=== PATIENT | female | born 1975 | race African-American/Black ===

== ENCOUNTER 2024-06-08 10:36 | Inpatient (IN) | payer OTHER, SELFPAY ==
--- NOTE | ~2024-06-08 | CT_ITS ---
EXAMINATION: CT ABDOMEN AND PELVIS WITHOUT CONTRAST CLINICAL INFORMATION: Abdominal pain, question pancreatitis COMPARISON: None available. TECHNIQUE: Multidetector volumetric imaging was performed from the superior aspect of the liver through the pubic symphysis. Sagittal and coronal reformatted images were obtained on the technologist's workstation. This CT examination was performed using dose optimization techniques as appropriate, variously including the following: *Automated exposure control *Adjustment of mA and/or kV according to patient size (this includes techniques or standardized protocols for targeted exams where dose is matched to indication/reason for exam; i.e. extremities or head) *Use of iterative reconstruction technique DLP: 394 mGy-cm FINDINGS: TELEVISION INSTALLER: Unremarkable LUNG BASES: The visualized lung bases are unremarkable. LIVER, GALLBLADDER, AND BILIARY TREE: Enlarged fatty liver focal fatty sparing about the gallbladder fossa. On noncontrast study, no focal hepatic lesion or biliary ductal dilatation is present. The gallbladder is unremarkable with no evidence of radiopaque gallstones, gallbladder wall thickening, or obvious pericholecystic inflammatory changes. PANCREAS: Pancreas is normal in size. Mild left upper quadrant mesenteric stranding does not appear to be immediately associated with the pancreas SPLEEN: Unremarkable. ADRENAL GLANDS: Unremarkable. KIDNEYS AND URETERS: The kidneys are normal in size, shape, and attenuation. No hydronephrosis or hydroureter. Couple nonobstructing left mid pole 2 to 3 mm calculi.. No perinephric stranding. 3 cm left upper pole renal cyst. BLADDER: Unremarkable. GASTROINTESTINAL TRACT: Moderately distended stomach. Nonobstructive bowel pattern. Appendix not seen. Colon is decompressed. ABDOMINAL WALL: No significant hernia is appreciated. LYMPH NODES: Normal. VASCULAR: Atherosclerotic calcification of nonaneurysmal aorta. PELVIC VISCERA: Study limited without IV or oral contrast. Complex left adnexal 3.4 cm structure with calcifications. Uterus not identified. OSSEOUS STRUCTURES: Unremarkable. CT/CT abdomen pelvis wo IV con IMPRESSION: 1. Mild left upper quadrant mesenteric stranding, not immediately associated with the pancreas. Correlate with pancreatic enzymes. 2. Enlarged fatty liver. 3. Nonobstructing left renal calculi. 4. 3.4 cm complex left adnexal structure with calcifications. Consider pelvic ultrasound. Fleischner guidelines were followed. Electronically signed by: Raisa Goldman MD 06/08/2024 01:37 PM EDT RP
[2024-06-08 10:53] VITALS: BP 125/108; PULSE 88; RESP 14; TEMP 36.6; O2SAT 97; BMI 25.2
--- NOTE | 2024-06-08 11:06 | PC.NURSE ---
patient sitting on floor, patient asked to get back in bed. patient now sitting in bed
[2024-06-08 11:16] VITALS: BP 149/95; PULSE 90; RESP 20; TEMP 36.6; O2SAT 100
--- NOTE | 2024-06-08 11:30 | ED_ITS ---
HPI - Abdominal Pain General Chief Complaint: Abdominal Pain Stated Complaint: ABD PAIN,H/O DIVERTICULITIS,FENTANYL GIVEN PER EMS Time Seen by Provider: 06/08/24 11:25 Source: patient Mode of arrival: ambulatory Limitations: no limitations History of Present Illness HPI narrative: This is a 49 years old patient presented to the emergency department with a chief complaint of upper abdominal pain she reports history of pancreatitis no radiation of the pain nausea no vomiting she does drink alcohol MD elicited complaint: abdominal pain Pertinent past history: other (Pancreatitis) Onset (ago): day(s) (1) Pain Consistency: constant Location: diffuse Severity: moderate Quality: cramping Radiation: none Migration to: no migration Exacerbating factors: nothing Related Data Home Medications ?Medication ?Instructions ?Recorded ?Confirmed buprenorphine 8 mg-naloxone 2 mg 2 film sublingual DAILY 06/08/24 06/08/24 sublingual film (Suboxone) buspirone 7.5 mg tablet 7.5 mg PO BID 06/08/24 06/08/24 qtcbrtaooa-[id number]-[id number] 1 tab PO DAILY PRN Migraine 06/08/24 06/08/24 50 mg-325 mg-40 mg tablet Headache fluoxetine 40 mg capsule 40 mg PO DAILY 06/08/24 06/08/24 gabapentin 400 mg capsule 400 mg PO TID 06/08/24 06/08/24 hydroxyzine pamoate 25 mg capsule 25 - 50 mg PO TID PRN Anxiety 06/08/24 06/08/24 prazosin 1 mg capsule 3 mg PO DAILY 06/08/24 06/08/24 zolpidem 5 mg tablet 5 mg PO BEDTIME 06/08/24 06/08/24 Allergies Allergy/AdvReac Type Severity Reaction Status Date / Time ibuprofen [From Motrin] Allergy Rash Verified 06/08/24 10:55 Iodinated Contrast Media Allergy Anaphylaxis Verified 06/08/24 10:55 [Contrast Dye] Review of Systems Constitutional: Reports no additional constitutional complaints Reports system reviewed and no additional complaints, except as documented Cardiovascular: Reports no additional cardiovascular complaints Respiratory: Reports no additional respiratory complaints Gastrointestinal: Reports no additional gastrointestinal complaints [facility] Past Medical History Attestation statement: The following information was validated with the patient. [facility] Narrative: pancreatitis/alcohol abuse Social History Social History Household Members: Family Alcohol intake: current Alcohol intake frequency: 3 or more drinks per day Alcohol type: hard liquor Patient Tobacco Use Status: Former Tobacco user Second Hand Smoke Exposure: No service: No Physical Exam ED Vital Signs: Vital Signs - 24 hr 06/08/24 16:14 Temperature 98.4 F Pulse Rate 94 Respiratory Rate 16 Blood Pressure 167/84 H Pulse Oximetry 96 Oxygen Delivery Method Room Air BMI result Body Mass Index 25.2 Awake alert in not acute distress Const General: cooperative Nutritional Appearance: well nourished Orientation/consciousness: patient oriented x3 HENMT Head: Yes normal to inspection General nose exam: Normal external nose present Face and sinus: Yes normal facial exam Mouth: Normal oral and palatal mucosa present Neck Neck: Yes normal visual inspection Chest Chest palpation & inspection: normal inspection of the chest Resp Effort & Inspection: normal respiratory effort Auscultation: clear to auscultation bilaterally Cardio Jugular venous distension: no JVD Palpation: normal PMI Rate: regular rate Rhythm: regular rhythm GI Inspection: Yes normal to inspection Palpation (GI): Soft to palpation Auscultation: normal bowel sounds General: Yes no CVA tenderness Back/Spine/Pelvis Back: no CVA tenderness Neuro General: patient oriented x3 Cranial nerves: Yes CN's II-XII intact bilaterally Procedures Procedure Narrative Procedure Narrative: need of IV access multiple nurse failed even with US Easy IJ: under us cannulated rt IJ with 18 angel catheter good blood return good flush Course Reevaluation(s) Reevaluation #1: On re-examination patient sleeping in not acute distress Time: 15:18 Medical Decision Making Medical Decision Making [facility] Narrative: Patient presented with abdominal pain will obtain labs imaging Differential Diagnosis Differential Diagnoses: The differential diagnosis associated with the presentation includes Acute pancreatitis/peptic ulcer disease/cholecystitis Lab Data 06/08/24 18:45 06/08/24 18:45 Labs: Lab Results 06/08/24 06/08/24 Range/Units 11:44 16:08 WBC 10.6 (4.8-10.8) X10*3/uL RBC 4.69 (4.20-5.50) X10*6/uL Hgb 11.8 L (12.0-16.0) g/dl Hct 36.4 L (37.0-47.0) % MCV 77.6 L (80.0-98.0) fL MCH 25.2 L (27.0-33.0) pg MCHC 32.4 (31.0-35.0) g/dl RDW 13.4 (11.0-16.0) % Plt Count 354 (160-400) X10*3/uL MPV 9.1 L (9.4-12.3) fL Immature Gran % (Auto) 0.7 H (0.0-0.4) % Neut % (Auto) 82.7 H (45-73) % Lymph % (Auto) 13.2 L (20-40) % [place] % (Auto) 2.7 (2-11) % Eos % (Auto) 0.4 (0-4) % Baso % (Auto) 0.3 (0-2) % Lymph # (Auto) 1.4 (1.2-4.9) X10*3/uL [place] # (Auto) 0.3 (0.1-1.2) X10*3/uL Eos # (Auto) 0.0 (0.0-0.4) X10*3/uL Baso # (Auto) 0.0 (0.0-0.2) X10*3/uL Abs Immat Gran (auto) 0.07 H (0.00-0.03) X10*3/uL Absolute Neuts (auto) 8.7 H (2.0-8.3) x10*3/uL Absolute Nucleated RBC 0.000 (0.0-0.012) X10*3/uL Nucleated RBC % (auto) 0.0 (0.0-0.2) /100WBC VBG pH 7.42 (7.32-7.43) VBG pCO2 38 mmHg VBG pO2 56 mmHg VBG HCO3 25 (22-26) mmol/L VBG O2 Saturation 81.0 % VBG Base Excess 0.9 mmol/L Sodium 138 (135-145) mmol/L Potassium 3.2 L (3.3-5.1) mmol/L Chloride 103 (96-108) mmol/L Carbon Dioxide 15 L (22-29) mmol/L Anion Gap 23 H (12-20) BUN 10 (9-16) mg/dL Creatinine 0.80 (0.5-1.4) mg/dL Estim Creat Clear Calc 74.0 Estimated GFR > 60 Random Glucose 167 H (60-115) mg/dL Calcium 10.8 H (8.4-10.2) mg/dL Total Bilirubin 0.5 (0.0-1.0) mg/dL AST 67 H (5-31) U/L ALT 30 (0-31) U/L Alkaline Phosphatase 129 H (39-117) U/L Total Protein 8.8 H (6.5-8.0) g/dL Albumin 4.6 (3.5-5.0) g/dL Lipase 8 (8-78) U/L Beta HCG, Quant 8 mIU/mL Urine Color Yellow Urine Appearance Clear Urine pH 6.5 (5.0-9.0) Ur Specific [place] 1.020 (1.005-1.025) Urine Protein Negative (Neg-Trace) mg/dL Urine Glucose (UA) Negative (Negative) mg/dL Urine Ketones 80 (Negative) mg/dL Urine Blood Negative (Negative) Urine Nitrite Negative (Negative) Ur Leukocyte Esterase Negative (Negative) Medications Administered Generic Name Dose Route Start Last Admin Trade Name Freq PRN Reason Stop Dose Admin Acetaminophen/Butalbital/Caffeine 1 tab 06/09/24 15:17 06/09/24 15:20 Butalb/Acetamin/Caff 50/325/40 Tablet PO 1 tab Q4H PRN Administration Headache Buprenorphine/Naloxone 2 film 06/09/24 09:00 06/09/24 08:27 Buprenorphine/Naloxone 8/2 Mg Film SUBLINGUAL 2 film DAILY CLAU Administration Buspirone HCl 7.5 mg 06/08/24 22:50 06/09/24 08:28 Buspirone Hcl 5 Mg Tablet PO 7.5 mg BID CLAU Administration Enoxaparin Sodium 40 mg 06/08/24 17:00 06/09/24 15:16 Enoxaparin Sodium 40 Mg/0.4 Ml Syringe SUBCUT 40 mg Q24H CLAU Administration Fluoxetine HCl 40 mg 06/09/24 09:00 06/09/24 08:28 Fluoxetine Hcl 20 Mg Capsule PO 40 mg DAILY CLAU Administration Gabapentin 400 mg 06/08/24 22:50 06/09/24 15:16 Gabapentin 400 Mg Capsule PO 400 mg TID CLAU Administration Lactated Ringer's 1,000 mls @ 150 mls/hr 06/08/24 16:30 06/09/24 15:16 Lr IVCONT 150 mls/hr .Q6H40M CLAU Administration Melatonin 6 mg 06/08/24 16:23 06/08/24 23:05 Melatonin 3 Mg Tablet PO 6 mg BEDTIME PRN Administration Insomnia Oxycodone HCl 10 mg 06/08/24 16:25 06/09/24 12:06 Oxycodone Hcl Immed Release 5 Mg Tablet PO 10 mg Q4H PRN Administration Pain, Moderate(Pain Scale 4-6) Phenobarbital 45 mg 06/09/24 09:00 06/09/24 08:28 Phenobarbital 15 Mg Tablet PO 06/10/24 21:01 45 mg BID CLAU Administration Prazosin HCl 3 mg 06/09/24 09:00 06/09/24 08:27 Prazosin Hcl 1 Mg Capsule PO 3 mg DAILY CLAU Administration Protocol Sodium Chloride 3 ml 06/09/24 00:00 06/09/24 15:25 0.9 % Sodium Chloride Flush 3 Ml Syringe IVFLUSH Not Given QSHIFT CLAU Discontinued Medications Generic Name Dose Route Start Last Admin Trade Name Freq PRN Reason Stop Dose Admin Sodium Chloride 1,000 mls @ 999 mls/hr 06/08/24 15:30 06/08/24 17:10 Ns IVCONT 06/08/24 16:30 Infused .Q1H1M CLAU Infusion Lorazepam 0.5 mg 06/08/24 11:29 06/08/24 12:23 Lorazepam 2 Mg/Ml Vial IVPUSH 06/08/24 11:30 0.5 mg ONCE ONE Administration Morphine Sulfate 4 mg 06/08/24 11:28 06/08/24 12:23 Morphine Sulfate 4 Mg/Ml Cartridge IVPUSH 06/08/24 11:29 4 mg ONCE ONE Administration Protocol Morphine Sulfate 4 mg 06/08/24 14:11 06/08/24 14:21 Morphine Sulfate 4 Mg/Ml Cartridge IVPUSH 06/08/24 14:12 4 mg ONCE ONE Administration Protocol Morphine Sulfate 4 mg 06/08/24 16:25 06/09/24 10:36 Morphine Sulfate 4 Mg/Ml Cartridge IVPUSH 4 mg Q4H PRN Administration Pain, Severe (Pain Scale 7-10) Protocol Ondansetron HCl 4 mg 06/08/24 11:28 06/08/24 12:23 Ondansetron Hcl 4 Mg/2 Ml Vial IVPUSH 06/08/24 11:29 4 mg ONCE ONE Administration Phenobarbital Sodium 120 mg 06/08/24 18:30 06/08/24 18:33 Phenobarbital Sodium 130 Mg/Ml Im Once IM 06/08/24 18:31 120 mg ONCE ONE Administration Phenobarbital Sodium 90 mg 06/08/24 22:00 06/09/24 00:22 Phenobarbital Sodium 130 Mg/Ml Vial Im Q3hx2 IM 06/09/24 01:01 90 mg Q3H CLAU Administration Potassium Chloride 20 meq 06/08/24 15:33 06/08/24 16:11 Potassium Chloride Er 20 Meq Tab.Er.Prt PO 06/08/24 15:34 20 meq ONCE ONE Administration Discharge Plan Discharge Clinical Impression: Acute pancreatitis, Metabolic acidosis, Metabolic acidosis, increased anion gap Patient Disposition: Admitted As Inpatient Interventions: Admission Worksheet (ED) Last Done: 06/08/24 19:57 Discharge Date/Time: 06/08/24 20:35
[2024-06-08 11:51] LABS: MANUAL DIFF FLAG NO
[2024-06-08 11:52] LABS: Appearance Urine Clear; Color Urine Yellow; Glucose Urine UA Negative (Negative); Leukocyte Esterase Urine Negative (Negative); Nitrite Urine Negative (Negative); PH 6.5 (5.0-9.0); Urine Blood Negative (Negative); Urine Ketones 80 mg/dL (Negative); Urine Protein Negative (Neg-Trace)
[2024-06-08 11:56] LABS: Basophils Percent Auto 0.3 % (0-2); Eosinophils Percent Auto 0.4 % (0-4); Hematocrit 36.4 % (37.0-47.0); Hemoglobin 11.8 g/dl (12.0-16.0); Imm Gran Abs Auto 0.07 X10*3/uL (0.00-0.03); Imm Gran Pct Auto 0.7 % (0.0-0.4); Lymphocytes Absolute Auto 1.4 X10*3/uL (1.2-4.9); Lymphocytes Percent Auto 13.2 % (20-40); Mean Corpuscular HGB Conc 32.4 g/dl (31.0-35.0); Mean Corpuscular Hemoglobin 25.2 pg (27.0-33.0); Mean Corpuscular Volume 77.6 fL (80.0-98.0); Mean Platelet Volume 9.1 fL (9.4-12.3); Monocytes Absolute Auto 0.3 X10*3/uL (0.1-1.2); Monocytes Percent Auto 2.7 % (2-11); Neutrophils Absolute Auto 8.7 x10*3/uL (2.0-8.3); Neutrophils Percent Auto 82.7 % (45-73); Platelet Count 354 X10*3/uL (160-400); Red Blood Count 4.69 X10*6/uL (4.20-5.50); Red Cell Distribution Width 13.4 % (11.0-16.0); White Blood Count 10.6 X10*3/uL (4.8-10.8)
[2024-06-08 12:08] LABS: Alanine Aminotransferase 30 U/L (0-31); Albumin Level 4.6 g/dL (3.5-5.0); Alkaline Phosphatase 129 U/L (39-117); Anion Gap 23 (12-20); Aspartate Amino Transferase 67 U/L (5-31); Bilirubin Total 0.5 mg/dL (0.0-1.0); Blood Urea Nitrogen 10 mg/dL (9-16); Calcium 10.8 mg/dL (8.4-10.2); Carbon Dioxide 15 mmol/L (22-29); Chloride 103 mmol/L (96-108); Estimated Glomerular Filt Rate > 60; Glucose Random 167 mg/dL (60-115); Lipase 8 U/L (8-78); Potassium 3.2 mmol/L (3.3-5.1); Sodium 138 mmol/L (135-145); Total Protein 8.8 g/dL (6.5-8.0)
[2024-06-08 12:13] LABS: HCG Quantitative 8 mIU/mL
[2024-06-08] MEDS: ondansetron HCL 4 MG/2 ML VIAL IVPUSH (12:23)
[2024-06-08] MEDS: Morphine Sulfate 4 MG/ML CARTRIDGE IVPUSH ×4 (12:23→22:31)
[2024-06-08] MEDS: LORazepam 2 MG/ML VIAL 0.5 MG IVPUSH (12:23)
[2024-06-08 13:55] VITALS: BP 146/92; PULSE 98; RESP 14; TEMP 37.1; O2SAT 97
[2024-06-08] MEDS: 0.9 % Sodium Chloride 1,000 ML 999 ML IVCONT (15:37)
[2024-06-08] MEDS: Potassium Chloride ER 20 MEQ TAB.ER.PRT PO (16:11)
[2024-06-08 16:12] LABS: VBG Base Excess 0.9 mmol/L; VBG HCO3 25 mmol/L (22-26); VBG pCO2 38 mmHg; VBG pH 7.42 (7.32-7.43); VBG pO2 56 mmHg
[2024-06-08 16:13] LABS: Venous Blood Gas Refer to POC result
[2024-06-08 16:14] VITALS: BP 167/84; PULSE 94; RESP 16; TEMP 36.9; O2SAT 96
--- NOTE | 2024-06-08 16:27 | PM.IMHP ---
History of Present Illness Date of Service: 06/08/24 Chief Complaint: abd pain 49-year-old female with a history of substance abuse on Suboxone/anxiety with a history of pancreatitis presents with diffuse upper abdominal pain worsening over the last 24 hours. States she had an alcoholic beverage last night and shortly thereafter her pain began. Her last acute attack was 3 or 4 months ago. She denies daily alcohol use Review of Systems Review of Systems: Denies chest pain Denies shortness of breath Denies nausea vomiting diarrhea -admits to abdominal pain diffuse across upper abdomen Denies fever chills PMFSH Social History Alcohol intake: current Alcohol intake frequency: 3 or more drinks per day Alcohol type: hard liquor Advance Directives: No Advance Directives Information Provided: Yes Do you have a plan to hurt others: No Plan Meds Allergies Allergy/AdvReac Type Severity Reaction Status Date / Time ibuprofen [From Motrin] Allergy Rash Verified 06/08/24 10:55 Iodinated Contrast Media Allergy Anaphylaxis Verified 06/08/24 10:55 [Contrast Dye] Active Medications: Current Medications Acetaminophen (Acetaminophen 325 Mg Tablet) 650 mg PO Q6H PRN PRN Reason: Pain, Mild (Pain Scale 1-3), fever or headache Calcium Carbonate (Calcium Carbonate 750 Mg Tab.Chew) 750 mg PO Q4H PRN PRN Reason: Heartburn Enoxaparin Sodium (Enoxaparin Sodium 40 Mg/0.4 Ml Syringe) 40 mg SUBCUT Q24H REPLACED BY [facility] Sodium Chloride (Ns) 1,000 mls @ 999 mls/hr IVCONT .Q1H1M REPLACED BY [facility] Stop: 06/08/24 16:30 Last Admin: 06/08/24 15:37 Dose: 999 mls/hr Magnesium Hydroxide (Milk Of Magnesia 30 Ml Oral.Susp) 30 ml PO DAILY PRN PRN Reason: Constipation Melatonin (Melatonin 3 Mg Tablet) 6 mg PO BEDTIME PRN PRN Reason: Insomnia Sodium Chloride (0.9 % Sodium Chloride Flush 3 Ml Syringe) 3 ml IVFLUSH QSHIFT REPLACED BY [facility] Home Medications ?Medication ?Instructions ?Recorded ?Confirmed ?Last Taken ?Type buprenorphine 8 mg-naloxone 2 mg 2 film sublingual DAILY 06/08/24 Unknown History sublingual film (Suboxone) buspirone 7.5 mg tablet 7.5 mg PO BID 06/08/24 Unknown History fluoxetine 40 mg capsule 40 mg PO DAILY 06/08/24 Unknown History gabapentin 400 mg capsule 400 mg PO TID 06/08/24 Unknown History hydroxyzine pamoate 25 mg capsule 25 - 50 mg PO TID PRN Anxiety 06/08/24 Unknown History prazosin 1 mg capsule 3 mg PO DAILY 06/08/24 Unknown History zolpidem 5 mg tablet 5 mg PO BEDTIME 06/08/24 Unknown History Physical Exam Vital Signs and Narrative: Vital Signs: Last Vital Signs Temp 98.4 F 06/08/24 16:14 Pulse 94 06/08/24 16:14 Resp 16 06/08/24 16:14 BP 167/84 H 06/08/24 16:14 Pulse Ox 96 06/08/24 16:14 O2 Del Method Room Air 06/08/24 16:14 BMI result Body Mass Index 25.2 Const: Other: Awake alert uncomfortable appearing acute distress Resp: Other: Clear to auscultation bilaterally no rales rhonchi or wheezes Cardio: Other: No S4; positive S1-S2; no S3 murmurs rubs or gallops GI: Other: Soft nontender nondistended normoactive bowel sounds Extrem: Other: No edema bilaterally Results Labs 06/08/24 11:44 06/08/24 11:44 Labs: Laboratory Results - last 24 hr 06/08/24 06/08/24 11:44 16:08 MCV 77.6 L MCH 25.2 L MCHC 32.4 RDW 13.4 Plt Count 354 MPV 9.1 L Immature Gran % (Auto) 0.7 H Neut % (Auto) 82.7 H Lymph % (Auto) 13.2 L [place] % (Auto) 2.7 Eos % (Auto) 0.4 Baso % (Auto) 0.3 Lymph # (Auto) 1.4 [place] # (Auto) 0.3 Eos # (Auto) 0.0 Baso # (Auto) 0.0 Abs Immat Gran (auto) 0.07 H Absolute Neuts (auto) 8.7 H Absolute Nucleated RBC 0.000 Nucleated RBC % (auto) 0.0 VBG pH 7.42 VBG pCO2 38 VBG pO2 56 VBG HCO3 25 VBG O2 Saturation 81.0 VBG Base Excess 0.9 Anion Gap 23 H Estim Creat Clear Calc 74.0 Estimated GFR > 60 Random Glucose 167 H Calcium 10.8 H Total Bilirubin 0.5 AST 67 H ALT 30 Alkaline Phosphatase 129 H Total Protein 8.8 H Albumin 4.6 Lipase 8 Beta HCG, Quant 8 Urine Color Yellow Urine Appearance Clear Urine pH 6.5 Ur Specific [place] 1.020 Urine Protein Negative Urine Glucose (UA) Negative Urine Ketones 80 Urine Blood Negative Urine Nitrite Negative Ur Leukocyte Esterase Negative Imaging Radiologist's Impressions: Impressions Abdomen/Pelvis CT 06/08/24 11:29 IMPRESSION: 1. Mild left upper quadrant mesenteric stranding, not immediately associated with the pancreas. Correlate with pancreatic enzymes. 2. Enlarged fatty liver. 3. Nonobstructing left renal calculi. 4. 3.4 cm complex left adnexal structure with calcifications. Consider pelvic ultrasound. Fleischner guidelines were followed. Electronically signed by: Raisa Goldman MD 06/08/2024 01:37 PM EDT RP Assessment and Plan (1) Acute pancreatitis: Qualifiers: Pancreatitis type: alcohol induced Acute pancreatitis complication: unspecified Qualified Code(s): K85.20 - Alcohol induced acute pancreatitis without necrosis or infection Status: Acute (2) Substance abuse: Status: Acute Plan 49-year-old female with a history of substance abuse on Suboxone in the history of pancreatitis presents with diffuse upper abdominal pain worsening over the last 24 hours that began after an alcoholic beverage. She states last episode of pancreatitis was at least to 3 months ago 1. Acute pancreatitis -admit to med surge -lactated Ringer's at 150 an hour -NPO save ice chips -morphine/oxycodone for pain 2. Anxiety -stable and well compensated -we will continue outpatient therapies 3. Substance abuse disorder -continue Suboxone Lovenox Full Code Patient will require at least 2 midnights going forward to treat acute pancreatitis with NPO status and IV fluids as well as IV pain medication. This can not be achieved a lesser acute setting Quality Stroke Does the patient have a stroke diagnosis?: No VTE Prior VTE?: No VTE Risk Level:: Medical - moderate - high VTE Device Contraindication: Treatment Not Indicated VTE Drug Contraindication: N/A - Med Ordered
[2024-06-08] MEDS: oxyCODONE HCl Immed Release 5 MG TABLET 10 MG PO (17:21)
[2024-06-08] MEDS: Lactated Ringers 1,000 ML 150 ML IVCONT (17:22)
--- NOTE | 2024-06-08 17:38 | PC.NURSE ---
patient resting quietly in bed, respirations equal and unlabored. patient medicated per MAR for pain. patient is alert and oriented x4. patient is ambulatory to the bathroom on own, able to make needs known. patient has EJ R #18 placed by ED doc. patient has LR running at 150ml/hr. patient CIWA 11, inpatient provider notified.
--- NOTE | 2024-06-08 18:03 | PHA.MEDREC ---
Pharmacy Consult ? Medication Reconciliation Pharmacy has completed the medication reconciliation.
[2024-06-08 18:28] VITALS: BP 164/83; PULSE 98; RESP 20; TEMP 37; O2SAT 99
[2024-06-08] MEDS: PHENobarbitaL sodium 130 MG/ML IM ONCE 120 MG IM (18:33)
[2024-06-08 18:52] LABS: MANUAL DIFF FLAG NO
[2024-06-08 19:09] LABS: Alanine Aminotransferase 27 U/L (0-31); Albumin Level 4.3 g/dL (3.5-5.0); Alkaline Phosphatase 119 U/L (39-117); Anion Gap 18 (12-20); Aspartate Amino Transferase 48 U/L (5-31); Bilirubin Total 0.4 mg/dL (0.0-1.0); Blood Urea Nitrogen 6 mg/dL (9-16); Carbon Dioxide 17 mmol/L (22-29); Chloride 106 mmol/L (96-108); Estimated Glomerular Filt Rate > 60; Glucose Fasting 152 mg/dL (60-99); Lipase 7 U/L (8-78); Potassium 3.7 mmol/L (3.3-5.1); Sodium 137 mmol/L (135-145); Total Protein 8.3 g/dL (6.5-8.0)
[2024-06-08 19:10] LABS: Basophils Percent Auto 0.1 % (0-2); Eosinophils Percent Auto 0.3 % (0-4); Hematocrit 33.3 % (37.0-47.0); Hemoglobin 11.5 g/dl (12.0-16.0); Imm Gran Abs Auto 0.05 X10*3/uL (0.00-0.03); Imm Gran Pct Auto 0.5 % (0.0-0.4); Lymphocytes Absolute Auto 1.7 X10*3/uL (1.2-4.9); Lymphocytes Percent Auto 18.3 % (20-40); Mean Corpuscular HGB Conc 34.5 g/dl (31.0-35.0); Mean Corpuscular Hemoglobin 25.7 pg (27.0-33.0); Mean Corpuscular Volume 74.3 fL (80.0-98.0); Mean Platelet Volume 9.6 fL (9.4-12.3); Monocytes Absolute Auto 0.3 X10*3/uL (0.1-1.2); Monocytes Percent Auto 3.1 % (2-11); Neutrophils Absolute Auto 7.1 x10*3/uL (2.0-8.3); Neutrophils Percent Auto 77.7 % (45-73); Platelet Count 340 X10*3/uL (160-400); Red Blood Count 4.48 X10*6/uL (4.20-5.50); Red Cell Distribution Width 13.2 % (11.0-16.0); White Blood Count 9.1 X10*3/uL (4.8-10.8)
[2024-06-08 21:56] VITALS: BP 119/69; PULSE 86; RESP 20; TEMP 37.2; O2SAT 98
[2024-06-08] MEDS: PHENobarbitaL sodium 130 MG/ML VIAL IM Q3Hx2 90 MG IM (22:24)
[2024-06-08] MEDS: 0.9 % Sodium Chloride Flush 3 ML SYRINGE IVFLUSH (23:05)
[2024-06-08] MEDS: Melatonin 3 MG TABLET 6 MG PO (23:05)
[2024-06-08] MEDS: busPIRone HCl 5 MG TABLET 7.5 MG PO (23:05)
[2024-06-08] MEDS: Gabapentin 400 MG CAPSULE PO (23:05)
[2024-06-09] VITALS: BP 117/60; PULSE 82; RESP 20; TEMP 36.6; O2SAT 98
[2024-06-09] MEDS: PHENobarbitaL sodium 130 MG/ML VIAL IM Q3Hx2 90 MG IM (00:22)
[2024-06-09] MEDS: oxyCODONE HCl Immed Release 5 MG TABLET 10 MG PO ×5 (00:22→20:57)
[2024-06-09] MEDS: Lactated Ringers 1,000 ML 150 ML IVCONT ×4 (00:28→21:06)
[2024-06-09] MEDS: Morphine Sulfate 4 MG/ML CARTRIDGE IVPUSH ×2 (02:52→10:36)
[2024-06-09 05:08] VITALS: BP 112/62; PULSE 83; RESP 20; TEMP 36.3; O2SAT 98
[2024-06-09 07:18] VITALS: BP 113/71; PULSE 85; RESP 18; TEMP 36.6; O2SAT 95
[2024-06-09] MEDS: Buprenorphine/Naloxone 8/2 mg FILM 2 FILM SUBLINGUAL (08:27)
[2024-06-09] MEDS: Prazosin HCL 1 MG CAPSULE 3 MG PO (08:27)
[2024-06-09] MEDS: Gabapentin 400 MG CAPSULE PO ×3 (08:28→20:56)
[2024-06-09] MEDS: FLUoxetine HCl 20 MG CAPSULE 40 MG PO (08:28)
[2024-06-09] MEDS: busPIRone HCl 5 MG TABLET 7.5 MG PO ×2 (08:28→20:56)
[2024-06-09] MEDS: PHENobarbitaL 15 MG TABLET 45 MG PO ×2 (08:28→20:55)
--- NOTE | 2024-06-09 11:00 | MHC.CM.PN ---
Pt self-care, lives at home with roommates. Pt may need assistance with transportation home. New HCP completed with pt, now on file. Pt uses a cane and a walker. PCP: Mikki BARNHART
[2024-06-09] MEDS: Enoxaparin Sodium 40 MG/0.4 ML SYRINGE SUBCUT (15:16)
--- NOTE | 2024-06-09 15:18 | P.PNIM_ITS ---
Subjective Subjective Date of Service: 06/09/24 Interval History: Pain improved. Advance diet to full liquids. Review of Systems Denies chest pain Denies shortness of breath Denies nausea vomiting diarrhea -admits to abdominal pain diffuse across upper abdomen Denies fever chills Physical Exam 2 Vital Signs: Vital Signs: Last Vital Signs Temp 97.8 F 06/09/24 07:18 Pulse 85 06/09/24 07:18 Resp 18 06/09/24 07:18 BP 113/71 06/09/24 07:18 Pulse Ox 95 06/09/24 07:18 O2 Del Method Room Air 06/09/24 07:18 BMI result Body Mass Index 25.2 Const: Other: Awake alert uncomfortable appearing acute distress Resp: Other: Clear to auscultation bilaterally no rales rhonchi or wheezes Cardio: Other: No S4; positive S1-S2; no S3 murmurs rubs or gallops GI: Other: Soft nontender nondistended normoactive bowel sounds Extrem: Other: No edema bilaterally Objective Data Active Medications Acetaminophen (Acetaminophen 325 Mg Tablet) 650 mg PO Q6H PRN PRN Reason: Pain, Mild (Pain Scale 1-3), fever or headache Buprenorphine/Naloxone (Buprenorphine/Naloxone 8/2 Mg Film) 2 film SUBLINGUAL DAILY [facility] Last Admin: 06/09/24 08:27 Dose: 2 film Documented By: MEGHNA Buspirone HCl (Buspirone Hcl 5 Mg Tablet) 7.5 mg PO BID [facility] Last Admin: 06/09/24 08:28 Dose: 7.5 mg Documented By: MEGHNA Calcium Carbonate (Calcium Carbonate 750 Mg Tab.Chew) 750 mg PO Q4H PRN PRN Reason: Heartburn Enoxaparin Sodium (Enoxaparin Sodium 40 Mg/0.4 Ml Syringe) 40 mg SUBCUT Q24H [facility] Last Admin: 06/08/24 17:30 Dose: Not Given Documented By: JORGE ALBERTO Non-Admin Reason: Med Not Available Fluoxetine HCl (Fluoxetine Hcl 20 Mg Capsule) 40 mg PO DAILY [facility] Last Admin: 06/09/24 08:28 Dose: 40 mg Documented By: MEGHNA Gabapentin (Gabapentin 400 Mg Capsule) 400 mg PO TID [facility] Last Admin: 06/09/24 08:28 Dose: 400 mg Documented By: MEGHNA Lactated Ringer's (Lr) 1,000 mls @ 150 mls/hr IVCONT .Q6H40M [facility] Last Admin: 06/09/24 08:26 Dose: 150 mls/hr Documented By: MEGHNA Magnesium Hydroxide (Milk Of Magnesia 30 Ml Oral.Susp) 30 ml PO DAILY PRN PRN Reason: Constipation Melatonin (Melatonin 3 Mg Tablet) 6 mg PO BEDTIME PRN PRN Reason: Insomnia Last Admin: 06/08/24 23:05 Dose: 6 mg Documented By: YESY Morphine Sulfate (Morphine Sulfate 4 Mg/Ml Cartridge) 4 mg IVPUSH Q4H PRN; Protocol PRN Reason: Pain, Severe (Pain Scale 7-10) Last Admin: 06/09/24 10:36 Dose: 4 mg Documented By: BAILEE Oxycodone HCl (Oxycodone Hcl Immed Release 5 Mg Tablet) 10 mg PO Q4H PRN PRN Reason: Pain, Moderate(Pain Scale 4-6) Last Admin: 06/09/24 12:06 Dose: 10 mg Documented By: MEGHNA Pharmacy Consult (Consult Rx Etoh Phenob Im/Po) 1 each MISCELLANE ONCE PRN; Protocol PRN Reason: Consult order Phenobarbital (Phenobarbital 15 Mg Tablet) 45 mg PO BID [facility] Stop: 06/10/24 21:01 Last Admin: 06/09/24 08:28 Dose: 45 mg Documented By: MEGHNA Phenobarbital (Phenobarbital 30 Mg Tablet) 30 mg PO BID [facility] Stop: 06/12/24 21:01 Phenobarbital (Phenobarbital 15 Mg Tablet) 15 mg PO DAILY [facility] Stop: 06/14/24 09:01 Prazosin HCl (Prazosin Hcl 1 Mg Capsule) 3 mg PO DAILY [facility]; Protocol Last Admin: 06/09/24 08:27 Dose: 3 mg Documented By: MEGHNA Sodium Chloride (0.9 % Sodium Chloride Flush 3 Ml Syringe) 3 ml IVFLUSH QSHIFT [facility] Last Admin: 06/09/24 08:30 Dose: Not Given Documented By: MEGHNA Non-Admin Reason: IV Running Labs 06/08/24 18:45 06/08/24 18:45 Labs: Laboratory Results - last 24 hr 06/08/24 06/08/24 16:08 18:45 MCV 74.3 L MCH 25.7 L MCHC 34.5 RDW 13.2 Plt Count 340 MPV 9.6 Immature Gran % (Auto) 0.5 H Neut % (Auto) 77.7 H Lymph % (Auto) 18.3 L [place] % (Auto) 3.1 Eos % (Auto) 0.3 Baso % (Auto) 0.1 Lymph # (Auto) 1.7 [place] # (Auto) 0.3 Eos # (Auto) 0.0 Baso # (Auto) 0.0 Abs Immat Gran (auto) 0.05 H Absolute Neuts (auto) 7.1 Absolute Nucleated RBC 0.000 Nucleated RBC % (auto) 0.0 VBG pH 7.42 VBG pCO2 38 VBG pO2 56 VBG HCO3 25 VBG O2 Saturation 81.0 VBG Base Excess 0.9 Anion Gap 18 Estim Creat Clear Calc 81.0 Estimated GFR > 60 Fasting Glucose 152 H Calcium 10.0 D Total Bilirubin 0.4 AST 48 H ALT 27 Alkaline Phosphatase 119 H Total Protein 8.3 H Albumin 4.3 Lipase 7 L Assessment and Plan (1) Acute pancreatitis: Status: Acute (2) Substance abuse: Status: Acute Plan 49-year-old female with a history of substance abuse on Suboxone in the history of pancreatitis presents with diffuse upper abdominal pain worsening over the last 24 hours that began after an alcoholic beverage. She states last episode of pancreatitis was at least to 3 months ago 1. Acute pancreatitis -improving; DC morphine -lactated Ringer's at 150 an hour -advance diet to full liquids if tolerated low-fat tonight -I feel DC in a.m. 2. Anxiety -stable and well compensated -we will continue outpatient therapies 3. Substance abuse disorder -continue Suboxone Lovenox Full Code Requires ongoing hospitalization to treat acute pancreatitis with pain medication and IV fluids. Quality Stroke Does the patient have a stroke diagnosis?: No VTE Prior VTE?: No VTE Risk Level:: Medical - moderate - high VTE Device Contraindication: Treatment Not Indicated VTE Drug Contraindication: N/A - Med Ordered
[2024-06-09] MEDS: Butalb/Acetamin/Caff 50/325/40 TABLET 1 TAB PO ×2 (15:20→21:47)
[2024-06-09 15:31] VITALS: BP 110/62; PULSE 86; RESP 18; TEMP 36.8; O2SAT 98
[2024-06-09 20:00] VITALS: BP 103/58; PULSE 82; RESP 16; TEMP 37.1; O2SAT 97
[2024-06-09] MEDS: Melatonin 3 MG TABLET 6 MG PO (21:03)
--- NOTE | 2024-06-09 22:36 | PC.RT ---
Pt refused NOC CPAP
[2024-06-09 23:59] VITALS: BP 123/75; PULSE 79; RESP 20; TEMP 36.4; O2SAT 98
[2024-06-10] MEDS: oxyCODONE HCl Immed Release 5 MG TABLET 10 MG PO ×3 (01:41→10:15)
[2024-06-10 04:00] VITALS: BP 133/77; PULSE 77; RESP 16; TEMP 36.8; O2SAT 99
[2024-06-10] MEDS: Lactated Ringers 1,000 ML 150 ML IVCONT ×2 (04:23→09:22)
[2024-06-10] MEDS: Calcium Carbonate 750 MG TAB.CHEW PO (06:11)
[2024-06-10 08:00] VITALS: BP 118/73; PULSE 83; RESP 20; TEMP 36.9; O2SAT 98
[2024-06-10] MEDS: PHENobarbitaL 15 MG TABLET 45 MG PO ×2 (09:06→20:58)
[2024-06-10] MEDS: FLUoxetine HCl 20 MG CAPSULE 40 MG PO (09:06)
[2024-06-10] MEDS: Prazosin HCL 1 MG CAPSULE 3 MG PO (09:06)
[2024-06-10] MEDS: 0.9 % Sodium Chloride Flush 3 ML SYRINGE IVFLUSH ×3 (09:07→20:59)
[2024-06-10] MEDS: Gabapentin 400 MG CAPSULE PO ×3 (09:07→20:57)
[2024-06-10] MEDS: busPIRone HCl 5 MG TABLET 7.5 MG PO ×2 (09:07→20:57)
[2024-06-10] MEDS: Buprenorphine/Naloxone 8/2 mg FILM 2 FILM SUBLINGUAL (09:09)
[2024-06-10] MEDS: Acetaminophen 325 MG TABLET 650 MG PO ×2 (09:15→15:30)
--- NOTE | 2024-06-10 11:20 | MHC.RECOVRN ---
AUDIT-C Brief Intervention Pt had positive screen for unhealthy alcohol use on admission, subsequently met with t/w to discuss alcohol use and recovery supports/options. Pt voices concern regarding alcohol use and is aware that drinking at unhealthy levels is known to increase risk of alcohol related health problems. Pt reports drinking 1-2 pints of liquor daily for approximately 15 years. Pt expresses how alcohol use has impacted health, including negative impact on her health. Discussed risk reduction strategies including drinking below the recommended limit. Provided pt with written resources including information on inpatient and outpatient treatment, [facility]ALEN, harm reduction, and recovery coaching. Pt plans to follow up with [facility] for outpatient care. Pt provided with t/w contact information if questions or concerns arise. Denies other questions or concerns at this time.
[2024-06-10] MEDS: ondansetron HCL 4 MG/2 ML VIAL IVPUSH (12:40)
--- NOTE | 2024-06-10 13:45 | P.PNIM_ITS ---
Subjective Subjective Date of Service: 06/10/24 Interval History: Seen and examined this morning Follow-up for alcohol withdrawal, acute pancreatitis Abdominal pain somewhat improved Reporting nausea Review of Systems Review of Systems: Yes all other systems are reviewed and are negative Constitutional Constitutional: Denies chills and Denies fever(s) Cardiovascular Cardiovascular: Denies chest pain and Denies dyspnea Respiratory Respiratory: Denies cough and Denies dyspnea Gastrointestinal Gastrointestinal: Reports abdominal pain, Reports nausea and Denies vomiting Physical Exam 2 Vital Signs: Vital Signs: Last Vital Signs Temp 98.4 F 06/10/24 08:00 Pulse 83 06/10/24 08:00 Resp 20 06/10/24 08:00 BP 118/73 06/10/24 08:00 Pulse Ox 98 06/10/24 08:00 O2 Del Method Room Air 06/10/24 08:00 BMI result Body Mass Index 25.2 Const: General: cooperative, no acute distress, alert and awake Nutritional Appearance: average body habitus Orientation/consciousness: patient oriented x3 Resp: Effort & Inspection: normal respiratory effort, able to speak in complete sentences, no respiratory distress and no use of accessory muscles Cardio: Rate: regular rate GI: Inspection: No distended Palpation (GI): Soft to palpation Neuro: General: patient oriented x3, moves all extremities and CN's II-XI intact bilaterally Extrem: General: Yes no pedal edema Objective Data Active Medications Acetaminophen (Acetaminophen 325 Mg Tablet) 650 mg PO Q6H PRN PRN Reason: Pain, Mild (Pain Scale 1-3), fever or headache Last Admin: 06/10/24 09:15 Dose: 650 mg Documented By: FABRICIO Acetaminophen/Butalbital/Caffeine (Butalb/Acetamin/Caff 50/325/40 Tablet) 1 tab PO Q4H PRN PRN Reason: Headache Last Admin: 06/09/24 21:47 Dose: 1 tab Documented By: DANIEL Buprenorphine/Naloxone (Buprenorphine/Naloxone 8/2 Mg Film) 2 film SUBLINGUAL DAILY [facility] Last Admin: 06/10/24 09:09 Dose: 2 film Documented By: FABRICIO Buspirone HCl (Buspirone Hcl 5 Mg Tablet) 7.5 mg PO BID [facility] Last Admin: 06/10/24 09:07 Dose: 7.5 mg Documented By: FABRICIO Calcium Carbonate (Calcium Carbonate 750 Mg Tab.Chew) 750 mg PO Q4H PRN PRN Reason: Heartburn Last Admin: 06/10/24 06:11 Dose: 750 mg Documented By: DANIEL Enoxaparin Sodium (Enoxaparin Sodium 40 Mg/0.4 Ml Syringe) 40 mg SUBCUT Q24H [facility] Last Admin: 06/09/24 15:16 Dose: 40 mg Documented By: HAYESSCKITA Fluoxetine HCl (Fluoxetine Hcl 20 Mg Capsule) 40 mg PO DAILY [facility] Last Admin: 06/10/24 09:06 Dose: 40 mg Documented By: FABRICIO Gabapentin (Gabapentin 400 Mg Capsule) 400 mg PO TID [facility] Last Admin: 06/10/24 09:07 Dose: 400 mg Documented By: FABRICIO Magnesium Hydroxide (Milk Of Magnesia 30 Ml Oral.Susp) 30 ml PO DAILY PRN PRN Reason: Constipation Melatonin (Melatonin 3 Mg Tablet) 6 mg PO BEDTIME PRN PRN Reason: Insomnia Last Admin: 06/09/24 21:03 Dose: 6 mg Documented By: DANIEL Ondansetron HCl (Ondansetron Hcl 4 Mg/2 Ml Vial) 4 mg IVPUSH Q8H PRN PRN Reason: Nausea and Vomiting Last Admin: 06/10/24 12:40 Dose: 4 mg Documented By: FABRICIO Oxycodone HCl (Oxycodone Hcl Immed Release 5 Mg Tablet) 10 mg PO Q4H PRN PRN Reason: Pain, Moderate(Pain Scale 4-6) Last Admin: 06/10/24 10:15 Dose: 10 mg Documented By: FABRICIO Pharmacy Consult (Consult Rx Etoh Phenob Im/Po) 1 each MISCELLANE ONCE PRN; Protocol PRN Reason: Consult order Phenobarbital (Phenobarbital 15 Mg Tablet) 45 mg PO BID [facility] Stop: 06/10/24 21:01 Last Admin: 06/10/24 09:06 Dose: 45 mg Documented By: FABRICIO Phenobarbital (Phenobarbital 30 Mg Tablet) 30 mg PO BID [facility] Stop: 06/12/24 21:01 Phenobarbital (Phenobarbital 15 Mg Tablet) 15 mg PO DAILY [facility] Stop: 06/14/24 09:01 Prazosin HCl (Prazosin Hcl 1 Mg Capsule) 3 mg PO DAILY [facility]; Protocol Last Admin: 06/10/24 09:06 Dose: 3 mg Documented By: FABRICIO Sodium Chloride (0.9 % Sodium Chloride Flush 3 Ml Syringe) 3 ml IVFLUSH QSHIFT [facility] Last Admin: 06/10/24 09:07 Dose: 3 ml Documented By: FABRICIO Labs 06/08/24 18:45 06/08/24 18:45 Assessment and Plan (1) Acute pancreatitis: Status: Acute Assessment and Plan: 49-year-old female with a history of substance abuse on Suboxone in the history of pancreatitis presents with diffuse upper abdominal pain worsening over the last 24 hours that began after an alcoholic beverage. She states last episode of pancreatitis was at least to 3 months ago Acute pancreatitis due to etoh Having abdominal pain, will downgrade diet to full liquids possible component of etoh gastritis - will add pepcid continue IV pain control Alcohol use disorder with alcohol withdrawal Continue phenobarbital protocol Seen by addiction Medicine, resources provided, patient plans to follow-up outpatient in [facility] Anxiety stable and well compensated opiate use disorder continue Suboxone Adnexal cyst Recommend outpatient pelvic ultrasound Hypokalemia Resolved Metabolic acidosis Repeat BMP Mild transaminitis Imaging reveals fatty liver Likely due to fatty liver/ETOH Outpatient follow-up recommended Lovenox Full Code Requires ongoing hospitalization to treat acute pancreatitis with pain medication and IV fluids. Plan 49-year-old female with a history of substance abuse on Suboxone in the history of pancreatitis presents with diffuse upper abdominal pain worsening over the last 24 hours that began after an alcoholic beverage. She states last episode of pancreatitis was at least to 3 months ago 1. Acute pancreatitis -improving; DC morphine -lactated Ringer's at 150 an hour -advance diet to full liquids if tolerated low-fat tonight -I feel DC in a.m. 2. Anxiety -stable and well compensated -we will continue outpatient therapies 3. Substance abuse disorder -continue Suboxone Lovenox Full Code Requires ongoing hospitalization to treat acute pancreatitis with pain medication and IV fluids. Quality Stroke Does the patient have a stroke diagnosis?: No VTE Prior VTE?: No VTE Risk Level:: Medical - moderate - high VTE Device Contraindication: Treatment Not Indicated VTE Drug Contraindication: N/A - Med Ordered
[2024-06-10] MEDS: Butalb/Acetamin/Caff 50/325/40 TABLET 1 TAB PO (14:02)
[2024-06-10] MEDS: Famotidine/PF 20 MG/2 ML VIAL IVPUSH (14:33)
[2024-06-10] MEDS: Morphine Sulfate 2 MG/ML CARTRIDGE IVPUSH ×3 (14:34→22:52)
[2024-06-10 15:35] VITALS: BP 122/68; PULSE 82; RESP 18; TEMP 36.9; O2SAT 98
[2024-06-10] MEDS: Enoxaparin Sodium 40 MG/0.4 ML SYRINGE SUBCUT (17:17)
[2024-06-10 18:18] LABS: Anion Gap 11 (12-20); Blood Urea Nitrogen 3 mg/dL (9-16); Calcium 9.2 mg/dL (8.4-10.2); Carbon Dioxide 29 mmol/L (22-29); Chloride 103 mmol/L (96-108); Creatinine Clr Calc Pharmacy 92.5; Estimated Glomerular Filt Rate > 60; Glucose Random 91 mg/dL (60-115); Potassium 3.7 mmol/L (3.3-5.1); Sodium 139 mmol/L (135-145)
--- NOTE | 2024-06-10 19:55 | PC.RT ---
Pt refuses CPAP
[2024-06-10 20:00] VITALS: BP 121/68; PULSE 71; RESP 18; TEMP 36.6; O2SAT 96
[2024-06-10] MEDS: Melatonin 3 MG TABLET 6 MG PO (22:51)
[2024-06-10 23:20] VITALS: BP 122/65; PULSE 73; RESP 16; TEMP 36.2; O2SAT 98
[2024-06-11] MEDS: Morphine Sulfate 2 MG/ML CARTRIDGE IVPUSH ×2 (02:49→06:28)
[2024-06-11 02:59] VITALS: BP 122/77; PULSE 73; RESP 16; TEMP 36.2; O2SAT 97
[2024-06-11] MEDS: 0.9 % Sodium Chloride Flush 3 ML SYRINGE IVFLUSH (07:48)
[2024-06-11] MEDS: oxyCODONE HCl Immed Release 5 MG TABLET PO ×2 (07:48→12:48)
[2024-06-11] MEDS: Buprenorphine/Naloxone 8/2 mg FILM 2 FILM SUBLINGUAL (07:49)
[2024-06-11] MEDS: PHENobarbitaL 30 MG TABLET PO (07:49)
[2024-06-11] MEDS: Prazosin HCL 1 MG CAPSULE 3 MG PO (07:49)
[2024-06-11] MEDS: busPIRone HCl 5 MG TABLET 7.5 MG PO (07:49)
[2024-06-11] MEDS: Famotidine/PF 20 MG/2 ML VIAL IVPUSH (07:50)
[2024-06-11] MEDS: FLUoxetine HCl 20 MG CAPSULE 40 MG PO (07:50)
[2024-06-11] MEDS: Gabapentin 400 MG CAPSULE PO ×2 (07:50→14:05)
[2024-06-11 08:00] VITALS: BP 103/59; PULSE 81; RESP 18; TEMP 37; O2SAT 95
[2024-06-11 11:47] VITALS: BP 120/67; PULSE 96; RESP 16; TEMP 36.7; O2SAT 98
[2024-06-11] MEDS: Butalb/Acetamin/Caff 50/325/40 TABLET 1 TAB PO (12:48)
[2024-06-11] MEDS: Acetaminophen 325 MG TABLET 650 MG PO (12:48)
--- NOTE | 2024-06-11 14:14 | PM.DS ---
DS: Providers Provider Date of Service: 06/11/24 Date of admission: 06/08/24 16:23 Date of discharge: 06/11/24 Primary care physician: Mikki Kwan NP Consults: 06/08/24 18:14 Addiction Medicine Routine Consulting Provider: Addiction Covering Reason for consultation: alcohol withdrawal Attending physician on discharge: Francisco Thomas Discharging clinician: Krupa Vargas DS: Diagnosis Discharge Diagnosis (1) Acute pancreatitis: Status: Acute DS: Summary Hospital Course Hospital Course: From H&P on the day of admission 49-year-old female with a history of substance abuse on Suboxone/anxiety with a history of pancreatitis presents with diffuse upper abdominal pain worsening over the last 24 hours. States she had an alcoholic beverage last night and shortly thereafter her pain began. Her last acute attack was 3 or 4 months ago. She denies daily alcohol use Acute pancreatitis due to etoh pain slowly improved, her diet was advanced and she is tolerating a regular diet. Recommended to abstain from alcohol Alcohol use disorder with alcohol withdrawal Continue phenobarbital protocol Seen by addiction Medicine, resources provided, patient plans to follow-up outpatient in [facility] opiate use disorder continued on baseline dose of Suboxone Adnexal cyst Recommend outpatient pelvic ultrasound Hypokalemia Resolved Metabolic acidosis resolved Mild transaminitis Imaging reveals fatty liver Likely due to fatty liver/ETOH Outpatient follow-up recommended Time Attestation Discharge Coordination Time (in mins): 36 Quality: Safe Use of Opioids Does Pt have an Active Cancer Diagnosis on the Problem List?: No Quality: Stroke Does the patient have a stroke diagnosis?: No Physical Exam Vital Signs: Vital Signs: Last Vital Signs Temp 98.0 F 06/11/24 11:47 Pulse 96 06/11/24 11:47 Resp 16 06/11/24 11:47 BP 120/67 06/11/24 11:47 Pulse Ox 98 06/11/24 11:47 O2 Del Method Room Air 06/11/24 11:47 BMI result Body Mass Index 25.2 Const: General: cooperative, no acute distress, alert and awake Nutritional Appearance: average body habitus Orientation/consciousness: patient oriented x3 Resp: Effort & Inspection: normal respiratory effort, able to speak in complete sentences, no respiratory distress and no use of accessory muscles Cardio: Rate: regular rate GI: Inspection: No distended Palpation (GI): Soft to palpation Neuro: General: patient oriented x3, moves all extremities and CN's II-XI intact bilaterally Extrem: General: Yes no pedal edema DS: Data Data Completed and Pending Labs on day of discharge: Laboratory Results - last 24 hr 06/10/24 17:48 Sodium 139 Potassium 3.7 Chloride 103 Carbon Dioxide 29 Anion Gap 11 L BUN 3 L Creatinine 0.64 Estim Creat Clear Calc 92.5 Estimated GFR > 60 Random Glucose 91 Calcium 9.2 D Discharge Plan Discharge Anticipated Discharge Date/Time: 06/11/24 14:16 Patient Disposition: Home, Self-Care Discharge Diagnosis: Acute pancreatitis Adnexal cyst Alcohol use disorder with alcohol withdrawal Referrals: Mikki Kwan NP [Primary Care Provider] - 1 Week Discharge Medications: New oxycodone 5 mg Tablet 5 mg PO BID PRN (Reason: Pain, Moderate(Pain Scale 4-6)) Qty: 4 0RF Rx Instructions: Partial Fill upon patient request. Continued fluoxetine 40 mg capsule 40 mg PO DAILY prazosin 1 mg capsule 3 mg PO DAILY gabapentin 400 mg capsule 400 mg PO TID buspirone 7.5 mg tablet 7.5 mg PO BID zolpidem 5 mg tablet 5 mg PO BEDTIME hydroxyzine pamoate 25 mg capsule 25 - 50 mg PO TID PRN (Reason: Anxiety) buprenorphine-naloxone [Suboxone] 8-2 mg film 2 film sublingual DAILY hqcxtjqqce-tmyhrijszurdz-afed 50-325-40 mg tablet 1 tab PO DAILY PRN (Reason: Migraine Headache) Discharge Orders: Discharge Order (Routine); Ordered 06/11/24 Ordered By: Krupa Vargas Activity on Discharge: As tolerated Stand Alone Forms: Patient Portal Discharge page Print Language: Malawian Care Plan Goals: See below Health Concerns: Acute pancreatitis Metabolic acidosis-resolved Chronic anemia Transaminitis, mild Adnexal cyst Plan of Treatment: Recommend to continue a bland diet until abdominal pain completely resolves CT scan of the abdomen and pelvis showed a complex adnexal structure - you will need a pelvic US to evaluate the nature of this area - please schedule a follow up appointment with your PCP to schedule ultrasound. Outpatient follow-up with PCP to monitor chronic transaminitis and anemia Recommend to stop drinking alcohol. Recommend to follow up in the [facility] for further resources in assisting with sobriety Assessment: See discharge summary
--- NOTE | 2024-06-11 14:59 | MHC.CM.PN ---
pt dcd self care transportaion by [facility]
== END 2024-06-11 15:01 | disposition home or self-care (01) | DRG 282 ==
LOC: HO.ED 14:36 → HO.EDOVER 16:29 → HO.IMC 19:40 → HO.S3 06-10 14:24
PROVIDERS: Admitting Provider Hospitalist; Emergency Provider Emergency Medicine; PCP Nurse Practitioner Family; Visit Provider Physician Assistant Medical
DX: K85.20 Alcohol induced acute pancreatitis without necrosis or infection (principal); E87.20 Acidosis, unspecified; E87.6 Hypokalemia; K70.0 Alcoholic fatty liver; F10.939 Alcohol use, unspecified with withdrawal, unspecified; F11.20 Opioid dependence, uncomplicated; F41.9 Anxiety disorder, unspecified; Z79.899 Other long term (current) drug therapy
CPT/HCPCS: 36415; 74176; 80048; 80053; 81003; 82803; 83690; 84702; 85025; 94660; 99221; 99285; J1650; J2060; J2270; J2405; J2560; J7120

== ENCOUNTER → 2024-06-08 16:23 | Outpatient (BNV) | payer OTHER, SELFPAY | PROVIDERS: Admitting Provider Hospitalist; Emergency Provider Emergency Medicine; PCP Nurse Practitioner Family; Visit Provider Hospitalist | DX: K85.20 Alcohol induced acute pancreatitis without necrosis or infection (principal) | CPT/HCPCS: 99223; 99232; 99239 ==

== ENCOUNTER 2024-08-18 17:24 | Inpatient (IN) | payer OTHER, SELFPAY ==
--- NOTE | ~2024-08-18 | CT_ITS ---
EXAMINATION: CT ABDOMEN AND PELVIS WITHOUT CONTRAST CLINICAL INFORMATION: epigastric pain, hx pancreatitis COMPARISON: CT abdomen pelvis 06/08/2024 TECHNIQUE: Multidetector volumetric imaging was performed from the superior aspect of the liver through the pubic symphysis. Sagittal and coronal reformatted images were obtained on the technologist's workstation. This CT examination was performed using dose optimization techniques as appropriate, variously including the following: *Automated exposure control *Adjustment of mA and/or kV according to patient size (this includes techniques or standardized protocols for targeted exams where dose is matched to indication/reason for exam; i.e. extremities or head) *Use of iterative reconstruction technique DLP: 4096 mGy-cm FINDINGS: LUNG BASES: The visualized lung bases are unremarkable. LIVER, GALLBLADDER, AND BILIARY TREE: The liver is normal enlarged measuring 20.3 cm in cephalocaudad dimension with decreased attenuation consistent with hepatic steatosis. There is focal fatty sparing around the gallbladder. No focal hepatic lesion or biliary ductal dilatation is present. The gallbladder is quite distended with no evidence of radiopaque gallstones, gallbladder wall thickening, or obvious pericholecystic inflammatory changes. PANCREAS: Unremarkable. Previously seen left upper quadrant mesenteric stranding not really apparent on the current study. Much in SPLEEN: Unremarkable. ADRENAL GLANDS: Unremarkable. KIDNEYS AND URETERS: The kidneys are normal in size, shape, and attenuation. There is a 4 mm left mid to lower renal calculus present which measures 600 Hounsfield units with partial volume averaging included and is 8.2 cm from the posterior axillary line. No hydronephrosis, hydroureter, or additional calculi seen. No perinephric stranding. A benign 3.2 cm left upper pole Bosniak class I renal cyst is noted which requires no additional imaging or follow up. No solid renal masses are seen. BLADDER: Nearly empty but unremarkable GASTROINTESTINAL TRACT: The small and large bowel are unremarkable. The appendix is unremarkable. ABDOMINAL WALL: No significant hernia is appreciated. LYMPH NODES: Normal. VASCULAR: Unremarkable. PELVIC VISCERA: The uterus is not seen. An abnormal adnexal mass is not detected. No free intraperitoneal fluid is present. OSSEOUS STRUCTURES: Unremarkable. CT/CT abdomen pelvis wo IV con IMPRESSION: 1. A cause for the patient's epigastric pain has not been found. 2. The gallbladder is quite dilated. If gallbladder disease is a consideration, would recommend abdominal ultrasound. 3. Incidental note made of an enlarged fatty liver, nonobstructing 4 mm left renal calculus and hysterectomy. Fleischner guidelines were followed. Electronically signed by: Sebastian Stephens MD 08/18/2024 09:36 PM [facility]
--- NOTE | ~2024-08-18 | MR_ITS ---
. EXAMINATION: MRCP. CLINICAL INFORMATION: Elevated LFTs. COMPARISON: No priors. Correlated to CT abdomen and pelvis dated June 08, 2024 and August 18, 2024. TECHNIQUE: Axial and coronal T2 HASTE. Axial and coronal T2 fat sat HASTE. Coronal oblique T2 fat-sat single slice. MRCP radial T2 fat-sat. 3-D SPACE MRCP triggered. Axial in and out of phase sequences. FINDINGS: Liver measures 20 cm. Heterogeneous nodular signal throughout the liver parenchyma. The liver surface is smooth. The caudate lobe is not enlarged. The flow-void signal within the main hepatic, portal veins and intrahepatic portion of the IVC is normal. The gallbladder is absent. The common bile duct measures 7 mm. No signal abnormality within the lumen of the common bile duct. There is edema pattern in the tabatha hepatic region, peripancreatic/lesser sac into the paracolic gutter bilaterally. There is a percutaneously placed catheter in the right lateral lower abdomen wall into the port hepatic/gallbladder fossa region. There are no intestinal obstruction pattern. Spleen measures 8 cm. No nodular lesions in the adrenal glands. No hydronephrosis in either kidney. There is a 3 cm exophytic septated fluid signal characteristic lesion in the posterior upper pole left kidney. Conus medullaris ends in the intervertebral disc L1-2 with normal signal. MR/MR MRCP IMPRESSION: Consider acute pancreatitis resulting in edema pattern/fluid without fluid collection. No choledocholithiasis. Hepatomegaly and likely hepatocellular disease. This is no fully evaluated. Electronically signed by: Andre Dangelo MD 08/25/2024 09:33 AM [facility]
--- NOTE | ~2024-08-18 | NM_ITS ---
EXAMINATION: Nuclear medicine HIDA scan CLINICAL INFORMATION: Right upper quadrant pain. Abnormal gallbladder on ultrasound COMPARISON: Ultrasound right upper quadrant August 18, 2024 TECHNIQUE: 4.5 mCi technetium 99m mebrofenin given intravenously. Images obtained over the right upper quadrant through 90 minutes. Images were then obtained at 2 hours and 4 hours postinjection. FINDINGS: The radioisotope testicular liver and excreted into the biliary tree promptly. Activity is seen within the bowel at approximately 20 minutes. Radioisotope Activity continues to flow into the bowel through 4 hours. No visualization of the gallbladder throughout the exam. Findings consistent with cystic duct obstruction which can be due to an acute cholecystitis. NM/NM hepatobiliary wo pharm IMPRESSION: Nonvisualization of gallbladder on HIDA scan consistent with acute cholecystitis. Electronically signed by: Moises Foster MD 08/19/2024 05:10 PM [facility]
--- NOTE | ~2024-08-18 | US_ITS ---
EXAMINATION: US ABDOMEN LIMITED CLINICAL INFORMATION: Right upper quadrant/epigastric pain. Dilated gallbladder on CT scan.. COMPARISON: CT abdomen pelvis earlier today TECHNIQUE: Real-time imaging of the right upper quadrant abdominal viscera. FINDINGS: PANCREAS: The pancreas could not be seen secondary to overlying bowel gas. LIVER: The liver is enlarged with increased echogenicity consistent with hepatic steatosis similar to the CT scan earlier today. No focal hepatic lesion. There is no intrahepatic biliary duct dilatation seen. GALLBLADDER: The gallbladder is markedly distended similar to the prior CT. There is no evidence of stones, sludge, polyps, wall thickening or pericholecystic fluid. Barragan's sign is positive. COMMON BILE DUCT: Normal in caliber measuring 0.4 cm in diameter. FREE FLUID: None. US/US abdomen limited IMPRESSION: 1. Markedly distended gallbladder with positive Barragan's sign. No stones are seen. If acalculous cholecystitis is suspected, a HIDA scan could be performed. 2. Enlarged fatty liver. Electronically signed by: Sebastian Stephens MD 08/18/2024 11:14 PM [facility]
[2024-08-18 17:33] VITALS: BP 166/102; PULSE 102; O2SAT 98
[2024-08-18 17:42] VITALS: BP 149/97; PULSE 100; RESP 18; TEMP 37.4; O2SAT 100; BMI 25.9
--- NOTE | 2024-08-18 18:09 | ED.ABDPAIN ---
HPI - Abdominal Pain General Chief Complaint: Abdominal Pain Stated Complaint: N/V, abd pain, headache, hx pancreatitis Time Seen by Provider: 08/18/24 17:30 Source: patient, EMS, RN notes reviewed and old records reviewed Mode of arrival: EMS Limitations: no limitations History of Present Illness ED Provider: CHRISTIANO FISCHER PA-C HPI narrative: 49-year-old female with past medical history significant for alcohol dependence, CTS, cocaine abuse, hidradenitis, NSTEMI, HDL, MDD, menorrhagia (s/p hysterectomy), anemia, DVT, and GERD presents to the ED today for evaluation of severe epigastric pain x3 days. Her pain radiates to her back. she endorses associated nausea and vomiting. Admits to daily ETOH consumption. States ?I drink a lot?. Mainly hard liquor. She last consumed alcohol around 0300 this morning. Admits to history of pancreatitis requiring admission approximately 1 month ago and states this feels similar. She also endorses history of withdrawal seizures and DT. Denies any visual hallucinations at present however endorses seeing black spots . Denies fever, chills, headache, dizziness, chest pain, diarrhea, constipation, flank pain, dysuria, hematuria. Related Data Home Medications ?Medication ?Instructions ?Recorded ?Confirmed buprenorphine 8 mg-naloxone 2 mg 1 film sublingual TID 06/08/24 08/19/24 sublingual film (Suboxone) buspirone 7.5 mg tablet 7.5 mg PO TID 06/08/24 08/19/24 fluoxetine 40 mg capsule 40 mg PO DAILY 06/08/24 08/19/24 gabapentin 400 mg capsule 400 mg PO TID 06/08/24 08/19/24 hydroxyzine pamoate 25 mg capsule 25 - 50 mg PO TID PRN Anxiety 06/08/24 08/19/24 zolpidem 5 mg tablet 5 mg PO BEDTIME 06/08/24 08/19/24 bfhdgzd-ovzlmcrzdkqkl-tlwzdjgt 250 2 tab PO Q6H PRN Headache 08/19/24 08/19/24 mg-250 mg-65 mg tablet (Excedrin Extra Strength) prazosin 2 mg capsule 4 mg PO BEDTIME 08/19/24 08/19/24 topiramate 25 mg tablet 12.5 mg PO DAILY 08/19/24 08/19/24 Allergies Allergy/AdvReac Type Severity Reaction Status Date / Time ibuprofen [From Motrin] Allergy Rash Verified 08/18/24 17:44 Iodinated Contrast Media Allergy Anaphylaxis Verified 08/18/24 17:44 [Contrast Dye] Review of Systems Review of Systems Constitutional: No fever, chills, fatigue, night sweats, weight changes ENT/Mouth: No ear pain, hearing loss, nasal congestion, sinus pain, rhinorrhea, sore throat Eyes: No eye pain, swelling, redness, vision changes, discharge Cardio: No chest pain, palpitations, BELLO, orthopnea, peripheral edema Pulm: No SOB, cough, sputum, wheezing, dyspnea, hemoptysis GI: No nhematemesis, diarrhea, constipation, hematochezia, melena, +epigastric abdominal pain, +N/V : No irregular bleeding, dysuria, frequency, urgency, hesitancy, hematuria, flank pain, urinary flow changes, urinary incontinence or retention MSK: No back pain, neck pain, joint pain, myalgias Skin: No lesions, rashes Neuro: No weakness, numbness, paresthesias, LOC, dizziness, headache Psych: No anxiety/panic, depression, SI/HI, AH/VH All other systems reviewed and are negative. [facility] Past Medical History Attestation statement: The following information was validated with the patient. Source: old records reviewed and nursing notes reviewed Social History Social History Household Members: Family Alcohol intake: current Alcohol intake frequency: 3 or more drinks per day Alcohol type: hard liquor Patient Tobacco Use Status: Former Tobacco user Smoked in Last 30 Days: No Second Hand Smoke Exposure: No Use of substances other than those prescribed or required for medical reasons: No Advance Directives: Yes Advance Directives on File: Yes Advance Directives Date on File: 06/14/24 Do you have a plan to hurt others: No Plan Nutrition Risks: No Nutritional Risk Patient : No service: No Physical Exam ED Vital Signs: Vital Signs - 24 hr 08/18/24 17:42 08/18/24 18:21 08/18/24 21:46 Temperature 99.3 F 98.9 F Pulse Rate 100 95 Respiratory Rate 18 16 20 Blood Pressure 149/97 H 153/74 H Pulse Oximetry 100 100 Oxygen Delivery Method Room Air Room Air 08/19/24 00:58 08/19/24 02:00 Temperature 98.7 F 98.2 F Pulse Rate 96 98 Respiratory Rate 18 20 Blood Pressure 142/68 H 156/84 H Pulse Oximetry 97 100 Oxygen Delivery Method Room Air BMI result Body Mass Index 25.9 hypertensive, vitals otherwise wnl General: pacing around the room in discomfort Skin: Warm, dry, intact. No rashes or lesions. no jaundice. Head: Normocephalic, atraumatic. EENT: Hearing is intact b/l. Conjunctiva clear. no scleral icterus. PERRLA. EOM intact. Moist mucous membranes.? Neck: Supple without LAD Cardiac: Chest wall symmetric. RRR Lungs: Normal respiratory effort without accessory muscle use. CTA bilaterally Abdomen: obese abd, soft, nondistended, tender to palpation of RUQ and epigastric region with voluntary guarding, no rebound. normoactive BS x4. no CVAT bilaterally. Back: No midline spinous or paraspinal tenderness. No step off deformity. Ext: Upper and lower extremities atraumatic, without tenderness, deformity, swelling or erythema. Full ROM throughout. no pitting edema. Neuro: AOx3. Normal speech. Ambulating with steady gait. Psych: Appropriate mood and affect. Responds appropriately to questions. Course Course Course Narrative: 0055 -- CIWA 1 - 2 mg ativan given. CBC without leukocytosis or left shift. Microcytic anemia, chronic when compared to priors. H&H above transfusion threshold. chemistry without acute electrolyte abnormality requiring intervention. no MERA. random glucose 148. liver function around baseline. lipase and TG wnl. VBG shows metabolic alkalosis. UA is negative for infection. urine drug screen positive for opiates, buprenorphine, and THC. she tested negative for covid/ flu/ rsv. CT A/P and abd US shows: CT abdomen pelvis wo IV con IMPRESSION: 1. A cause for the patient's epigastric pain has not been found. 2. The gallbladder is quite dilated. If gallbladder disease is a consideration, would recommend abdominal ultrasound. 3. Incidental note made of an enlarged fatty liver, nonobstructing 4 mm left renal calculus and hysterectomy. US abdomen limited IMPRESSION: 1. Markedly distended gallbladder with positive Barragan's sign. No stones are seen. If acalculous cholecystitis is suspected, a HIDA scan could be performed. 2. Enlarged fatty liver. I did discuss findings with general surgeon, dr. owens. patient's pain has been poorly controlled with morphine and dialudid. dr. owens is recommending admission to medicine for pain control, observation, and possible HIDA scan in the morning. I discussed this with hospitalist dr. kelly who has accepted admission for acute pancreatitis vs gallbladder disease. dr. kelly to place admission orders. Medical Decision Making Medical Decision Making [facility] Narrative: 49-year-old female with past medical history significant for alcohol dependence, CTS, cocaine abuse, hidradenitis, NSTEMI, HDL, MDD, menorrhagia (s/p hysterectomy), anemia, DVT, and GERD presents to the ED today for evaluation of severe epigastric pain x3 days. Hypertensive, vitals otherwise wnl. Differential diagnosis includes biliary colic, renal colic, nephrolithiasis, gastroenteritis, pancreatitis, etoh withdrawal, etoh intoxication, anemia, electrolyte abnormality, dehyration. Abdominal exam without peritoneal signs. Moderate suspicion for acute hepatobiliary disease (including acute cholecystitis). Less likely to represent PUD (including perforation), acute infectious processes (pneumonia, hepatitis, pyelonephritis), atypical appendicitis, vascular catastrophe, bowel obstruction or viscus perforation. Presentation not consistent with other acute, emergent causes of abdominal pain at this time. Plan: labs, UA, viral serology, CT scan, pain medication, re-evaluation. Differential Diagnosis Differential Diagnoses: The differential diagnosis associated with the presentation includes as above. Admission/Observation Consideration of admission/observation: Escalation of care including admission/observation considered Patient admitted to medicine for suspected acute pancreatitis vs gallbladder disease Consult Healthcare Provider Management of the patient was discussed with: Hospitalist (dr. kelly) and Assistant Front Desk Manager (General surgeon dr. owens) Lab Data [facility] Lab Attestation statement: I reviewed the patient's lab results. as above 08/18/24 18:09 08/18/24 21:32 Labs: Lab Results 08/18/24 08/18/24 08/18/24 Range/Units 17:56 18:06 18:09 WBC 7.3 (4.8-10.8) X10*3/uL RBC 4.25 (4.20-5.50) X10*6/uL Hgb 10.9 L (12.0-16.0) g/dl Hct 32.0 L (37.0-47.0) % MCV 75.3 L (80.0-98.0) fL MCH 25.6 L (27.0-33.0) pg MCHC 34.1 (31.0-35.0) g/dl RDW 15.0 (11.0-16.0) % Plt Count 306 (160-400) X10*3/uL MPV 9.6 (9.4-12.3) fL Immature Gran % (Auto) 0.3 (0.0-0.4) % Neut % (Auto) 57.6 (45-73) % Lymph % (Auto) 35.4 (20-40) % [place] % (Auto) 6.0 (2-11) % Eos % (Auto) 0.3 (0-4) % Baso % (Auto) 0.4 (0-2) % Lymph # (Auto) 2.6 (1.2-4.9) X10*3/uL [place] # (Auto) 0.4 (0.1-1.2) X10*3/uL Eos # (Auto) 0.0 (0.0-0.4) X10*3/uL Baso # (Auto) 0.0 (0.0-0.2) X10*3/uL Abs Immat Gran (auto) 0.02 (0.00-0.03) X10*3/uL Absolute Neuts (auto) 4.2 (2.0-8.3) x10*3/uL Absolute Nucleated RBC 0.000 (0.0-0.012) X10*3/uL Nucleated RBC % (auto) 0.0 (0.0-0.2) /100WBC Smear Tech's Comments VERIFIED VBG pH (7.32-7.43) VBG pCO2 mmHg VBG pO2 mmHg VBG HCO3 (22-26) mmol/L VBG O2 Saturation % VBG Base Excess mmol/L Sodium (135-145) mmol/L Potassium (3.3-5.1) mmol/L Chloride (96-108) mmol/L Carbon Dioxide (22-29) mmol/L Anion Gap (12-20) BUN (9-16) mg/dL Creatinine (0.5-1.4) mg/dL Estim Creat Clear Calc Estimated GFR Random Glucose (60-115) mg/dL Calcium (8.4-10.2) mg/dL Magnesium (1.6-2.6) mg/dL Total Bilirubin (0.0-1.0) mg/dL AST (5-31) U/L ALT (0-31) U/L Alkaline Phosphatase (39-117) U/L Total Protein (6.5-8.0) g/dL Albumin (3.5-5.0) g/dL Triglycerides (<150) mg/dL Amylase (28-100) U/L Lipase (8-78) U/L Beta HCG, Quant 6 Cancelled mIU/mL Ethyl Alcohol 28 mg/dL Influenza Type A (PCR) NEGATIVE (Negative) Influenza Type B (PCR) NEGATIVE (Negative) RSV RNA Qual (PCR) NEGATIVE (Negative) SARS-CoV-2 RNA (RT-PCR) NEGATIVE (Negative) 08/18/24 08/18/24 Range/Units 21:32 21:36 WBC (4.8-10.8) X10*3/uL RBC (4.20-5.50) X10*6/uL Hgb (12.0-16.0) g/dl Hct (37.0-47.0) % MCV (80.0-98.0) fL MCH (27.0-33.0) pg MCHC (31.0-35.0) g/dl RDW (11.0-16.0) % Plt Count (160-400) X10*3/uL MPV (9.4-12.3) fL Immature Gran % (Auto) (0.0-0.4) % Neut % (Auto) (45-73) % Lymph % (Auto) (20-40) % [place] % (Auto) (2-11) % Eos % (Auto) (0-4) % Baso % (Auto) (0-2) % Lymph # (Auto) (1.2-4.9) X10*3/uL [place] # (Auto) (0.1-1.2) X10*3/uL Eos # (Auto) (0.0-0.4) X10*3/uL Baso # (Auto) (0.0-0.2) X10*3/uL Abs Immat Gran (auto) (0.00-0.03) X10*3/uL Absolute Neuts (auto) (2.0-8.3) x10*3/uL Absolute Nucleated RBC (0.0-0.012) X10*3/uL Nucleated RBC % (auto) (0.0-0.2) /100WBC Smear Tech's Comments VBG pH 7.44 H (7.32-7.43) VBG pCO2 29 mmHg VBG pO2 149 mmHg VBG HCO3 20 L (22-26) mmol/L VBG O2 Saturation 100.0 % VBG Base Excess -2.4 mmol/L Sodium 141 (135-145) mmol/L Potassium 3.8 (3.3-5.1) mmol/L Chloride 106 (96-108) mmol/L Carbon Dioxide 19 L (22-29) mmol/L Anion Gap 20 (12-20) BUN 8 L (9-16) mg/dL Creatinine 0.76 (0.5-1.4) mg/dL Estim Creat Clear Calc 78.7 Estimated GFR > 60 Random Glucose 148 H (60-115) mg/dL Calcium 8.9 (8.4-10.2) mg/dL Magnesium 1.9 (1.6-2.6) mg/dL Total Bilirubin 0.4 (0.0-1.0) mg/dL AST 34 H (5-31) U/L ALT 15 (0-31) U/L Alkaline Phosphatase 115 (39-117) U/L Total Protein 8.1 H (6.5-8.0) g/dL Albumin 4.5 (3.5-5.0) g/dL Triglycerides 110 (<150) mg/dL Amylase 39 (28-100) U/L Lipase 7 L (8-78) U/L Beta HCG, Quant mIU/mL Ethyl Alcohol mg/dL Influenza Type A (PCR) (Negative) Influenza Type B (PCR) (Negative) RSV RNA Qual (PCR) (Negative) SARS-CoV-2 RNA (RT-PCR) (Negative) Independent Interpretation I performed an independent interpretation of an: Ultrasound and CT Scan Interpretation: CT A/P showing distended gallbladder US abd showing distended gallbladder, no stones Radiology Impression Discussion of test interpretation with radiology: I have reviewed the radiologist's reading. Radiologist Impression: EXAMINATION: CT ABDOMEN AND PELVIS WITHOUT CONTRAST CLINICAL INFORMATION: epigastric pain, hx pancreatitis COMPARISON: CT abdomen pelvis 06/08/2024 TECHNIQUE: Multidetector volumetric imaging was performed from the superior aspect of the liver through the pubic symphysis. Sagittal and coronal reformatted images were obtained on the technologist's workstation. This CT examination was performed using dose optimization techniques as appropriate, variously including the following: *Automated exposure control *Adjustment of mA and/or kV according to patient size (this includes techniques or standardized protocols for targeted exams where dose is matched to indication/reason for exam; i.e. extremities or head) *Use of iterative reconstruction technique DLP: 4096 mGy-cm FINDINGS: LUNG BASES: The visualized lung bases are unremarkable. LIVER, GALLBLADDER, AND BILIARY TREE: The liver is normal enlarged measuring 20.3 cm in cephalocaudad dimension with decreased attenuation consistent with hepatic steatosis. There is focal fatty sparing around the gallbladder. No focal hepatic lesion or biliary ductal dilatation is present. The gallbladder is quite distended with no evidence of radiopaque gallstones, gallbladder wall thickening, or obvious pericholecystic inflammatory changes. PANCREAS: Unremarkable. Previously seen left upper quadrant mesenteric stranding not really apparent on the current study. Much in SPLEEN: Unremarkable. ADRENAL GLANDS: Unremarkable. KIDNEYS AND URETERS: The kidneys are normal in size, shape, and attenuation. There is a 4 mm left mid to lower renal calculus present which measures 600 Hounsfield units with partial volume averaging included and is 8.2 cm from the posterior axillary line. No hydronephrosis, hydroureter, or additional calculi seen. No perinephric stranding. A benign 3.2 cm left upper pole Bosniak class I renal cyst is noted which requires no additional imaging or follow up. No solid renal masses are seen. BLADDER: Nearly empty but unremarkable GASTROINTESTINAL TRACT: The small and large bowel are unremarkable. The appendix is unremarkable. ABDOMINAL WALL: No significant hernia is appreciated. LYMPH NODES: Normal. VASCULAR: Unremarkable. PELVIC VISCERA: The uterus is not seen. An abnormal adnexal mass is not detected. No free intraperitoneal fluid is present. OSSEOUS STRUCTURES: Unremarkable. CT/CT abdomen pelvis wo IV con IMPRESSION: 1. A cause for the patient's epigastric pain has not been found. 2. The gallbladder is quite dilated. If gallbladder disease is a consideration, would recommend abdominal ultrasound. 3. Incidental note made of an enlarged fatty liver, nonobstructing 4 mm left renal calculus and hysterectomy. Fleischner guidelines were followed. Electronically signed by: Sebastian Stephens MD 08/18/2024 09:36 PM EST RP EXAMINATION: US ABDOMEN LIMITED CLINICAL INFORMATION: Right upper quadrant/epigastric pain. Dilated gallbladder on CT scan.. COMPARISON: CT abdomen pelvis earlier today TECHNIQUE: Real-time imaging of the right upper quadrant abdominal viscera. FINDINGS: PANCREAS: The pancreas could not be seen secondary to overlying bowel gas. LIVER: The liver is enlarged with increased echogenicity consistent with hepatic steatosis similar to the CT scan earlier today. No focal hepatic lesion. There is no intrahepatic biliary duct dilatation seen. GALLBLADDER: The gallbladder is markedly distended similar to the prior CT. There is no evidence of stones, sludge, polyps, wall thickening or pericholecystic fluid. Barragan's sign is positive. COMMON BILE DUCT: Normal in caliber measuring 0.4 cm in diameter. FREE FLUID: None. US/US abdomen limited IMPRESSION: 1. Markedly distended gallbladder with positive Barragan's sign. No stones are seen. If acalculous cholecystitis is suspected, a HIDA scan could be performed. 2. Enlarged fatty liver. Electronically signed by: Sebastian Stephens MD 08/18/2024 11:14 PM EST RP Independent Historian Clinical information obtained from an independent historian. History obtained from or confirmed by: EMS External Record Review External record reviewed: Inpatient record Prescription Management I considered prescription management with: Pain Medication Chronic Conditions Patient?s care impacted by: Other (etoh abuse) Social Determinants Patient?s care significantly limited by Social Determinants of Health including: Alcoholism and drug addiction in family and Other Social Determinant of Health Medications Administered Generic Name Dose Route Start Last Admin Trade Name Freq PRN Reason Stop Dose Admin Acetaminophen 650 mg 08/19/24 02:18 08/19/24 09:35 Acetaminophen 325 Mg Tablet PO 650 mg Q6H PRN Administration Pain, Mild (Pain Scale 1-3), fever or headache Enoxaparin Sodium 40 mg 08/19/24 09:00 08/19/24 08:39 Enoxaparin Sodium 40 Mg/0.4 Ml Syringe SUBCUT 40 mg DAILY CLAU Administration Hydromorphone HCl 1 mg 08/19/24 02:18 08/19/24 09:35 Hydromorphone Hcl 1 Mg/Ml Syringe IVPUSH 1 mg Q4H PRN Administration Pain, Severe (Pain Scale 7-10) Protocol Lactated Ringer's 1,000 mls @ 150 mls/hr 08/19/24 01:30 08/19/24 08:37 Lr IVCONT 150 mls/hr .Q6H40M CALU Administration Ondansetron HCl 4 mg 08/19/24 02:18 08/19/24 02:33 Ondansetron Hcl 4 Mg/2 Ml Vial IVPUSH 4 mg Q8H PRN Administration Nausea and Vomiting Sodium Chloride 3 ml 08/19/24 08:00 08/19/24 07:01 0.9 % Sodium Chloride Flush 3 Ml Syringe IVFLUSH Not Given QSHIFT CLAU Discontinued Medications Generic Name Dose Route Start Last Admin Trade Name Freq PRN Reason Stop Dose Admin Hydromorphone HCl 1 mg 08/18/24 21:32 08/18/24 21:44 Hydromorphone Hcl 1 Mg/Ml Syringe IVPUSH 08/18/24 21:33 1 mg ONCE ONE Administration Protocol Hydromorphone HCl 0.5 mg 08/19/24 00:56 08/19/24 01:00 Hydromorphone Hcl 0.5 Mg/0.5 Ml Syringe IVPUSH 08/19/24 00:57 0.5 mg ONCE ONE Administration Protocol Sodium Chloride 1,000 mls @ 999 mls/hr 08/18/24 18:15 08/18/24 21:47 Ns IV 08/18/24 19:15 Infused .Q1H1M CLAU Infusion Lorazepam 1 mg 08/18/24 18:04 08/18/24 18:22 Lorazepam 2 Mg/Ml Vial IVPUSH 08/18/24 18:05 1 mg ONCE ONE Administration Morphine Sulfate 2 mg 08/18/24 18:04 08/18/24 18:21 Morphine Sulfate 2 Mg/Ml Cartridge IVPUSH 08/18/24 18:05 2 mg ONCE ONE Administration Protocol Morphine Sulfate 2 mg 08/18/24 20:10 08/18/24 20:23 Morphine Sulfate 2 Mg/Ml Cartridge IVPUSH 08/18/24 20:11 2 mg ONCE ONE Administration Protocol Critical Care Time Critical Care Time Critical Care Time: Yes Total Critical Care Time: 45 Attestation: Critical care time in the amount of 45 minutes has been provided to the patient in terms of direct patient care, frequent reevaluation on IV morphine/ dilaudid, consultation with general surgery and hospitalist, review and interpretation of medical data and results, and management of potentially life-threatening conditions. This is all outside of any medical procedures. Discharge Plan Discharge Clinical Impression: Abdominal pain Patient Disposition: Admitted As Inpatient
[2024-08-18 18:21] VITALS: RESP 16
[2024-08-18] MEDS: Morphine Sulfate 2 MG/ML CARTRIDGE IVPUSH ×2 (18:21→20:23)
[2024-08-18] MEDS: LORazepam 2 MG/ML VIAL 1 MG IVPUSH (18:22)
[2024-08-18] MEDS: 0.9 % Sodium Chloride 1,000 ML 999 ML IV (18:25)
[2024-08-18 18:26] LABS: Basophils Percent Auto 0.4 % (0-2); Eosinophils Percent Auto 0.3 % (0-4); Hemoglobin 10.9 g/dl (12.0-16.0); Imm Gran Abs Auto 0.02 X10*3/uL (0.00-0.03); Imm Gran Pct Auto 0.3 % (0.0-0.4); Lymphocytes Absolute Auto 2.6 X10*3/uL (1.2-4.9); Lymphocytes Percent Auto 35.4 % (20-40); MANUAL DIFF FLAG SCAN; Mean Corpuscular HGB Conc 34.1 g/dl (31.0-35.0); Mean Corpuscular Hemoglobin 25.6 pg (27.0-33.0); Mean Corpuscular Volume 75.3 fL (80.0-98.0); Mean Platelet Volume 9.6 fL (9.4-12.3); Monocytes Absolute Auto 0.4 X10*3/uL (0.1-1.2); Neutrophils Absolute Auto 4.2 x10*3/uL (2.0-8.3); Neutrophils Percent Auto 57.6 % (45-73); PLT CLUMP 1; Red Blood Count 4.25 X10*6/uL (4.20-5.50); SCAN SMEAR FLAG 1
[2024-08-18 18:32] LABS: Ethanol 28 mg/dL
--- NOTE | 2024-08-18 18:45 | PC.NURSE ---
Assumed care of patient at 1845. Patient in no distress and resting comfortably at this time.
[2024-08-18 18:50] LABS: Influenza A PCR NEGATIVE (Negative); Influenza B PCR NEGATIVE (Negative); Resp Syncy Virus RNA Qual PCR NEGATIVE (Negative); SARS COV2 PCR INHOUSE NEGATIVE (Negative)
[2024-08-18 18:53] LABS: HCG Quantitative 6 mIU/mL
[2024-08-18 19:02] LABS: Platelet Count 306 X10*3/uL (160-400); SLIDE REVIEW VERIFIED; White Blood Count 7.3 X10*3/uL (4.8-10.8)
[2024-08-18 21:41] LABS: VBG Base Excess -2.4 mmol/L; VBG HCO3 20 mmol/L (22-26); VBG pCO2 29 mmHg; VBG pH 7.44 (7.32-7.43); VBG pO2 149 mmHg
[2024-08-18 21:41] LABS: Venous Blood Gas Refer to POC result
[2024-08-18] MEDS: HYDROmorphone HCl 1 MG/ML SYRINGE IVPUSH (21:44)
[2024-08-18 21:46] VITALS: BP 153/74; PULSE 95; RESP 20; TEMP 37.2; O2SAT 100
[2024-08-18 21:57] LABS: Alanine Aminotransferase 15 U/L (0-31); Albumin Level 4.5 g/dL (3.5-5.0); Alkaline Phosphatase 115 U/L (39-117); Amylase 39 U/L (28-100); Anion Gap 20 (12-20); Aspartate Amino Transferase 34 U/L (5-31); Bilirubin Total 0.4 mg/dL (0.0-1.0); Blood Urea Nitrogen 8 mg/dL (9-16); Calcium 8.9 mg/dL (8.4-10.2); Carbon Dioxide 19 mmol/L (22-29); Chloride 106 mmol/L (96-108); Creatinine Clr Calc Pharmacy 78.7; Estimated Glomerular Filt Rate > 60; Glucose Random 148 mg/dL (60-115); Lipase 7 U/L (8-78); Magnesium 1.9 mg/dL (1.6-2.6); Potassium 3.8 mmol/L (3.3-5.1); Sodium 141 mmol/L (135-145); Total Protein 8.1 g/dL (6.5-8.0); Triglycerides 110 mg/dL (<150)
[2024-08-19] VITALS (10 sets, daily range): BP systolic 113–156; BP diastolic 65–84; PULSE 76–99; RESP 16–20; TEMP 36.3–37.2; O2SAT 96–100
--- NOTE | 2024-08-19 00:53 | PC.NURSE ---
provider made aware of patients request for pain medication, no order received at this moment
[2024-08-19] MEDS: HYDROmorphone HCl 0.5 MG/0.5 ML SYRINGE IVPUSH (01:00)
--- NOTE | 2024-08-19 01:15 | PM.IMHP ---
History of Present Illness Date of Service: 08/19/24 Chief Complaint: Abdominal pain Ms. Ramos is a 49-year-old female with a past medical history significant for abdominal pain, alcohol dependence, bilateral carpal tunnel syndrome, cocaine abuse, hidradenitis, non-ST elevation myocardial infarction (NSTEMI), hypercholesterolemia, impaired fasting glucose, major depression, menorrhagia (status post-hysterectomy), microcytic anemia, deep vein thrombosis (DVT) following knee surgery, and GERD. She presents with severe epigastric abdominal pain for the past four days, described as non-radiating and reminiscent of her previous episodes of pancreatitis. However, her lipase level is normal, and a CT scan of the abdomen does not reveal pancreatitis but shows a dilated gallbladder. Ultrasound findings are consistent with gallbladder dilation and a positive Barragan?s sign. She is afebrile, with a normal white blood cell count, has no nausea or vomiting. Pain control has been partially achieved with dilaudid and morphine. The emergency department consulted surgery (Dr. Browne), and a HIDA scan has been recommended for further evaluation. Review of Systems Review of Systems: Gen: no fever Resp: no sob, no cough CV: no chest, no BELLO, no leg edema GI: No n/v, + abd pain Neuro: No confusion Yes all other systems are reviewed and are negative [facility] Social History Household Members: Family Alcohol intake: current Alcohol intake frequency: 3 or more drinks per day Alcohol type: hard liquor Patient Tobacco Use Status: Former Tobacco user Second Hand Smoke Exposure: No Advance Directives: Yes Advance Directives on File: Yes Advance Directives Date on File: 06/14/24 Do you have a plan to hurt others: No Plan service: No Meds Allergies Allergy/AdvReac Type Severity Reaction Status Date / Time ibuprofen [From Motrin] Allergy Rash Verified 08/18/24 17:44 Iodinated Contrast Media Allergy Anaphylaxis Verified 08/18/24 17:44 [Contrast Dye] Home Medications ?Medication ?Instructions ?Recorded ?Confirmed ?Last Taken ?Type buprenorphine 8 mg-naloxone 2 mg 2 film sublingual DAILY 06/08/24 06/08/24 06/06/24 History sublingual film (Suboxone) buspirone 7.5 mg tablet 7.5 mg PO BID 06/08/24 06/08/24 06/06/24 History mioimylaan-nztedjomncwze-gowzubmd 1 tab PO DAILY PRN Migraine 06/08/24 06/08/24 06/06/24 History 50 mg-325 mg-40 mg tablet Headache fluoxetine 40 mg capsule 40 mg PO DAILY 06/08/24 06/08/24 06/06/24 History gabapentin 400 mg capsule 400 mg PO TID 06/08/24 06/08/24 06/06/24 History hydroxyzine pamoate 25 mg capsule 25 - 50 mg PO TID PRN Anxiety 06/08/24 06/08/24 06/06/24 History prazosin 1 mg capsule 3 mg PO DAILY 06/08/24 06/08/24 06/06/24 History zolpidem 5 mg tablet 5 mg PO BEDTIME 06/08/24 06/08/24 06/06/24 History Physical Exam Vital Signs and Narrative: Vital Signs: Last Vital Signs Temp 98.7 F 08/19/24 00:58 Pulse 96 08/19/24 00:58 Resp 18 08/19/24 00:58 BP 142/68 H 08/19/24 00:58 Pulse Ox 97 08/19/24 00:58 O2 Del Method Room Air 08/19/24 00:58 BMI result Body Mass Index 25.9 Const: Other: General: AO X 3, no acute distress heent: normal sclera, normal eye movments Resp: CTA bilateral CVS: S1,S2,RRR GI: +BS, NT, no distention, epigastric tenderness Skin: No rash Neuro: motor grossly intact Psych: appropriate affect Results Labs 08/18/24 18:09 08/18/24 21:32 Labs: Laboratory Results - last 24 hr 08/18/24 08/18/24 08/18/24 17:56 18:06 18:09 MCV 75.3 L MCH 25.6 L MCHC 34.1 RDW 15.0 Plt Count 306 MPV 9.6 Immature Gran % (Auto) 0.3 Neut % (Auto) 57.6 Lymph % (Auto) 35.4 [place] % (Auto) 6.0 Eos % (Auto) 0.3 Baso % (Auto) 0.4 Lymph # (Auto) 2.6 [place] # (Auto) 0.4 Eos # (Auto) 0.0 Baso # (Auto) 0.0 Abs Immat Gran (auto) 0.02 Absolute Neuts (auto) 4.2 Absolute Nucleated RBC 0.000 Nucleated RBC % (auto) 0.0 Smear Tech's Comments VERIFIED VBG pH VBG pCO2 VBG pO2 VBG HCO3 VBG O2 Saturation VBG Base Excess Anion Gap Estim Creat Clear Calc Estimated GFR Random Glucose Calcium Magnesium Total Bilirubin AST ALT Alkaline Phosphatase Total Protein Albumin Triglycerides Amylase Lipase Beta HCG, Quant 6 Cancelled Ethyl Alcohol 28 Influenza Type A (PCR) NEGATIVE Influenza Type B (PCR) NEGATIVE RSV RNA Qual (PCR) NEGATIVE SARS-CoV-2 RNA (RT-PCR) NEGATIVE 08/18/24 08/18/24 21:32 21:36 MCV MCH MCHC RDW Plt Count MPV Immature Gran % (Auto) Neut % (Auto) Lymph % (Auto) [place] % (Auto) Eos % (Auto) Baso % (Auto) Lymph # (Auto) [place] # (Auto) Eos # (Auto) Baso # (Auto) Abs Immat Gran (auto) Absolute Neuts (auto) Absolute Nucleated RBC Nucleated RBC % (auto) Smear Tech's Comments VBG pH 7.44 H VBG pCO2 29 VBG pO2 149 VBG HCO3 20 L VBG O2 Saturation 100.0 VBG Base Excess -2.4 Anion Gap 20 Estim Creat Clear Calc 78.7 Estimated GFR > 60 Random Glucose 148 H Calcium 8.9 Magnesium 1.9 Total Bilirubin 0.4 AST 34 H ALT 15 Alkaline Phosphatase 115 Total Protein 8.1 H Albumin 4.5 Triglycerides 110 Amylase 39 Lipase 7 L Beta HCG, Quant Ethyl Alcohol Influenza Type A (PCR) Influenza Type B (PCR) RSV RNA Qual (PCR) SARS-CoV-2 RNA (RT-PCR) Imaging Radiologist's Impressions: Impressions Abdomen/Pelvis CT 08/18/24 18:06 IMPRESSION: 1. A cause for the patient's epigastric pain has not been found. 2. The gallbladder is quite dilated. If gallbladder disease is a consideration, would recommend abdominal ultrasound. 3. Incidental note made of an enlarged fatty liver, nonobstructing 4 mm left renal calculus and hysterectomy. Fleischner guidelines were followed. Electronically signed by: Sebastian Stephens MD 08/18/2024 09:36 PM [facility] Abdomen Ultrasound 08/18/24 21:46 IMPRESSION: 1. Markedly distended gallbladder with positive Barragan's sign. No stones are seen. If acalculous cholecystitis is suspected, a HIDA scan could be performed. 2. Enlarged fatty liver. Electronically signed by: Sebastian Stephens MD 08/18/2024 11:14 PM EST Assessment and Plan (1) Abdominal pain: Status: Acute Plan 49-year-old female with a past medical history significant for abdominal pain, alcohol dependence here with abdominal pain, suspect acute recurrent pancreatitis despite normal lipase and no ct finging of acute pancreatitis, Abdominal pain--DDx Gallblader disease, vs acute pancreatitis. -NPO -IVF -Dilaudid for pain -HIDA scan for dilated gallbladder and +positive barragan -Surger consult Alcohol dependence and risk of withdrawal -[facility] protocol -folic and thiamine supplement OUD--suboxone Depression--resume meds once home meds verified DVT prophylaxis: Lovenox Quality Stroke Does the patient have a stroke diagnosis?: No VTE Prior VTE?: No VTE Risk Level:: Medical - moderate - high VTE Device Contraindication: Treatment Not Indicated VTE Drug Contraindication: N/A - Med Ordered
[2024-08-19] MEDS: Lactated Ringers 1,000 ML 150 ML IVCONT ×4 (02:12→21:21)
[2024-08-19] MEDS: ondansetron HCL 4 MG/2 ML VIAL IVPUSH (02:33)
[2024-08-19 02:37] LABS: Appearance Urine Clear; Color Urine Yellow; Glucose Urine UA Negative (Negative); Leukocyte Esterase Urine Negative (Negative); Nitrite Urine Negative (Negative); Urine Blood Negative (Negative); Urine Ketones Negative (Negative); Urine Protein Negative (Neg-Trace)
[2024-08-19 02:42] LABS: Amphetamine Screen Urine Not Detected (Not Detect); Barbiturates, Urine Not Detected (Not Detect); Benzodiazepines Screen Urine Not Detected (Not Detect); Buprenorphine Scr Positive (Not Detect); Cannabinoid Screen Urine POSITIVE (Not Detect); Cocaine Screen Urine Not Detected (Not Detect); Fentanyl, urine Not Detected (Not Detect); Methadone Screen, Urine Not Detected (Not Detect); Opiate Screen Urine POSITIVE (Not Detect); Oxycodone Screen Urine Not Detected (Not Detect); Phencyclidine Screen Urine Not Detected (Not Detect)
--- NOTE | 2024-08-19 03:20 | PC.NURSE ---
patient disconnecting self from IV fluids, education performed
[2024-08-19] MEDS: HYDROmorphone HCl 1 MG/ML SYRINGE IVPUSH ×5 (05:35→21:25)
[2024-08-19] MEDS: Enoxaparin Sodium 40 MG/0.4 ML SYRINGE SUBCUT (08:39)
[2024-08-19] MEDS: Acetaminophen 325 MG TABLET 650 MG PO ×3 (09:35→22:23)
--- NOTE | 2024-08-19 09:43 | PC.NURSE ---
pt verbalizing increase in epigastric pain. prn medications utilized. effectiveness pending. pt seen by hospitalist/aware of plan of care moving forward. pt currently waiting for HIDA scan to be completed at this time. LR continues to infuse @ 150mls/hr. remains on RA w/o difficulty - no sob/wob noted. respirations even/unlabored. plan of care ongoing. call avila placed within reach.
--- NOTE | 2024-08-19 09:57 | PHA.MEDREC ---
Pharmacy Consult ? Medication Reconciliation Pharmacy has completed the medication reconciliation. Spoke with patient in ED 21. Patient knew all medications. Patient is currently titrating up on topiramate ( starting at 1/2 tablet daily then increasing from there). Last took medications 2 days ago.
--- NOTE | 2024-08-19 10:47 | PC.NURSE ---
tech being transported to have HIDA scan completed at this time.
--- NOTE | 2024-08-19 12:44 | PM.EVENT ---
Event Note Date of Service: 08/19/24 Event Note: This patient is seen and examined by hospitalist service this morning, seen and examined again has abd epigas get epigastric pain no nausea/vomiting the now Physical exam and assessment and plan coordinated in h&P note, Agree with the plan in addition: Abdominal pain--DDx Gallblader disease, vs acute pancreatitis. -NPO -IVF -Dilaudid for pain -HIDA scan for dilated gallbladder and +positive davis -Surger consult Time Spent With Patient Time: Total time managing care of this patient today ____ minutes.
--- NOTE | 2024-08-19 15:04 | PM.CNGS ---
History of Present Illness Consult details Consult date: 08/19/24 Narrative: The pt is a 49 year oldfemale with ETOH use who was admitted a amonth and a half ago with pancreatitits. Improved and was dc dx - alcohol related pancreatitis but now comes back in with similar symptoms and acute pain not well improved with narcotic meds. cT scan showing dilated GB and u/s confirms with no thickening or stones or sludge or dilated cbd. Pt admitted and had HIDA scan with delayed images and final read no visualization of the GB. WBC normal afebrile. [facility] Social History Social History Household Members: Family Alcohol intake: current Alcohol intake frequency: 3 or more drinks per day Alcohol type: hard liquor Patient Tobacco Use Status: Former Tobacco user Smoked in Last 30 Days: No Second Hand Smoke Exposure: No Use of substances other than those prescribed or required for medical reasons: No Advance Directives: Yes Advance Directives on File: Yes Advance Directives Date on File: 06/14/24 Do you have a plan to hurt others: No Plan Nutrition Risks: No Nutritional Risk Patient : No service: No Meds Allergies Allergy/AdvReac Type Severity Reaction Status Date / Time ibuprofen [From Motrin] Allergy Rash Verified 08/18/24 17:44 Iodinated Contrast Media Allergy Anaphylaxis Verified 08/18/24 17:44 [Contrast Dye] Active Medications: Current Medications Acetaminophen (Acetaminophen 325 Mg Tablet) 650 mg PO Q6H PRN PRN Reason: Pain, Mild (Pain Scale 1-3), fever or headache Last Admin: 08/19/24 09:35 Dose: 650 mg Buprenorphine/Naloxone (Buprenorphine/Naloxone 8/2 Mg Film) 1 film SUBLINGUAL TID [facility] Buspirone HCl (Buspirone Hcl 5 Mg Tablet) 7.5 mg PO TID [facility] Calcium Carbonate (Calcium Carbonate 750 Mg Tab.Chew) 750 mg PO Q4H PRN PRN Reason: Heartburn Enoxaparin Sodium (Enoxaparin Sodium 40 Mg/0.4 Ml Syringe) 40 mg SUBCUT DAILY [facility] Last Admin: 08/19/24 08:39 Dose: 40 mg Fluoxetine HCl (Fluoxetine Hcl 20 Mg Capsule) 40 mg PO DAILY [facility] Gabapentin (Gabapentin 400 Mg Capsule) 400 mg PO TID [facility] Hydromorphone HCl (Hydromorphone Hcl 1 Mg/Ml Syringe) 1 mg IVPUSH Q4H PRN; Protocol PRN Reason: Pain, Severe (Pain Scale 7-10) Last Admin: 08/19/24 13:25 Dose: 1 mg Hydroxyzine HCl (Hydroxyzine Hcl 25 Mg Tablet) 25 mg PO TID PRN PRN Reason: Anxiety Lactated Ringer's (Lr) 1,000 mls @ 150 mls/hr IVCONT .Q6H40M [facility] Last Admin: 08/19/24 08:37 Dose: 150 mls/hr Magnesium Hydroxide (Milk Of Magnesia 30 Ml Oral.Susp) 30 ml PO DAILY PRN PRN Reason: Constipation Melatonin (Melatonin 3 Mg Tablet) 6 mg PO BEDTIME PRN PRN Reason: Insomnia Ondansetron HCl (Ondansetron Hcl 4 Mg/2 Ml Vial) 4 mg IVPUSH Q8H PRN PRN Reason: Nausea and Vomiting Last Admin: 08/19/24 02:33 Dose: 4 mg Prazosin HCl (Prazosin Hcl 1 Mg Capsule) 4 mg PO BEDTIME [facility]; Protocol Sodium Chloride (0.9 % Sodium Chloride Flush 3 Ml Syringe) 3 ml IVFLUSH QSHIFT [facility] Last Admin: 08/19/24 07:01 Dose: Not Given Topiramate (Topiramate 25 Mg Tablet) 12.5 mg PO DAILY [facility] Zolpidem Tartrate (Zolpidem Tartrate 5 Mg Tablet) 5 mg PO BEDTIME [facility] Home Medications ?Medication ?Instructions ?Recorded ?Confirmed ?Last Taken ?Type buprenorphine 8 mg-naloxone 2 mg 1 film sublingual TID 06/08/24 08/19/24 08/17/24 History sublingual film (Suboxone) buspirone 7.5 mg tablet 7.5 mg PO TID 06/08/24 08/19/24 08/17/24 History fluoxetine 40 mg capsule 40 mg PO DAILY 06/08/24 08/19/24 08/17/24 History gabapentin 400 mg capsule 400 mg PO TID 06/08/24 08/19/24 08/17/24 History hydroxyzine pamoate 25 mg capsule 25 - 50 mg PO TID PRN Anxiety 06/08/24 08/19/24 08/17/24 History zolpidem 5 mg tablet 5 mg PO BEDTIME 09/08/19/24 08/17/24 History nijsfxc-mtrduonridlcp-uyilzmad 250 2 tab PO Q6H PRN Headache 08/19/24 08/19/24 08/17/24 History mg-250 mg-65 mg tablet (Excedrin Extra Strength) prazosin 2 mg capsule 4 mg PO BEDTIME 08/19/24 08/19/24 08/17/24 History topiramate 25 mg tablet 12.5 mg PO DAILY 08/19/24 08/19/24 08/17/24 History Physical Exam Vital Signs: Vital Signs: Last Vital Signs Temp 98.7 F 08/19/24 13:03 Pulse 82 08/19/24 13:28 Resp 19 08/19/24 13:28 BP 123/75 08/19/24 13:28 Pulse Ox 96 08/19/24 13:28 O2 Del Method Room Air 08/19/24 13:03 BMI result Body Mass Index 25.9 Const: General: cooperative and acute distress mild Orientation/consciousness: patient oriented x3 Eyes: Other: nonicteric Resp: Effort & Inspection: normal respiratory effort Auscultation: clear to auscultation bilaterally Cardio: Rate: regular rate Rhythm: regular rhythm GI: Other: tenderness epigastric area and left upper quadrant but tender in ruq too with guarding active bowel sounds Neuro: General: patient oriented x3 Psych: Appearance: grossly normal Mental Status: mental status grossly normal Affect: No normal affect Results Labs 08/18/24 18:09 08/18/24 21:32 Labs: Abnormal lab results 08/18/24 08/18/24 08/18/24 Range/Units 18:09 21:32 21:36 Hgb 10.9 L (12.0-16.0) g/dl Hct 32.0 L (37.0-47.0) % MCV 75.3 L (80.0-98.0) fL MCH 25.6 L (27.0-33.0) pg VBG pH 7.44 H (7.32-7.43) VBG HCO3 20 L (22-26) mmol/L Carbon Dioxide 19 L (22-29) mmol/L BUN 8 L (9-16) mg/dL Random Glucose 148 H (60-115) mg/dL AST 34 H (5-31) U/L Total Protein 8.1 H (6.5-8.0) g/dL Lipase 7 L (8-78) U/L Urine Opiates Screen (Not Detect) Ur Buprenorphine Scrn (Not Detect) ng/mL U Marijuana (THC) Screen (Not Detect) 08/19/24 Range/Units 02:25 Hgb (12.0-16.0) g/dl Hct (37.0-47.0) % MCV (80.0-98.0) fL MCH (27.0-33.0) pg VBG pH (7.32-7.43) VBG HCO3 (22-26) mmol/L Carbon Dioxide (22-29) mmol/L BUN (9-16) mg/dL Random Glucose (60-115) mg/dL AST (5-31) U/L Total Protein (6.5-8.0) g/dL Lipase (8-78) U/L Urine Opiates Screen POSITIVE H (Not Detect) Ur Buprenorphine Scrn Positive H (Not Detect) ng/mL U Marijuana (THC) Screen POSITIVE H (Not Detect) Short CBC 08/18/24 Range/Units 18:09 WBC 7.3 (4.8-10.8) X10*3/uL Hgb 10.9 L (12.0-16.0) g/dl Hct 32.0 L (37.0-47.0) % Plt Count 306 (160-400) X10*3/uL BMP 08/18/24 21:32 Sodium 141 Potassium 3.8 Chloride 106 Carbon Dioxide 19 L BUN 8 L Creatinine 0.76 Calcium 8.9 Liver Function 08/18/24 Range/Units 21:32 Total Bilirubin 0.4 (0.0-1.0) mg/dL AST 34 H (5-31) U/L ALT 15 (0-31) U/L Alkaline Phosphatase 115 (39-117) U/L Albumin 4.5 (3.5-5.0) g/dL Urine 08/19/24 Range/Units 02:25 Urine Color Yellow Urine Appearance Clear Urine pH 6.0 (5.0-9.0) Ur Specific [place] 1.020 (1.005-1.025) Urine Protein Negative (Neg-Trace) mg/dL Urine Glucose (UA) Negative (Negative) mg/dL All other labs normal. Assessment and Plan (1) Abdominal pain: Status: Acute Plan 49 year old female with abdominal pain and recent admission for etoh related pancreatitits - now with similar pain but labs ok and GB distended on imaging , no stones no thickening or fluid - HIDA now saying no GB filling therefore cholecystitis - will make npo and cont with ivf if not better will consider lap bartolo tomorrow Procedures Date of Service Date of Service: 08/20/24
--- NOTE | 2024-08-19 15:29 | PC.NURSE ---
this nurse took report for patient at approx 3pm, pt was sent back for additional scanning from the ED and will come to overflow 1 after scanning, a updated note will be done when patient arrives.
[2024-08-19] MEDS: Buprenorphine/Naloxone 8/2 mg FILM 1 FILM SUBLINGUAL ×2 (16:19→20:47)
[2024-08-19] MEDS: Gabapentin 400 MG CAPSULE PO ×2 (16:20→20:47)
[2024-08-19] MEDS: busPIRone HCl 5 MG TABLET 7.5 MG PO ×2 (16:20→20:46)
--- NOTE | 2024-08-19 16:31 | PC.NURSE ---
patient brought over to overflow bed 1 after scan was completed, pt currently a&ox3, vitals stable, rr equal/non labored- lungs clear, pt c/o 10/10 abd pain, back pain as well as a headache, pt requesting tylenol for pain at this time but wanted to know if the hospitalist could give her additional po medication a little stronger to take if her pain increases before IVP medications are due. Hospitalist was notified of pt request. Additionally, pts ciwa was 9- she has a headache, mild tremors, moist palms, and is stating she is seeing black dots in her vision- pt admits to drinking alot and is asking to be put on the pheobarb protocol as she has been on in the past. Dr. Piper was notified of this as well via tiger text. Pt was medicated per orders, IVF running per order, call avila within reach, will continue with plan of care.
[2024-08-19] MEDS: oxyCODONE HCl Immed Release 5 MG TABLET PO ×2 (16:58→23:52)
--- NOTE | 2024-08-19 16:58 | PC.NURSE ---
Tylenol/Oxycodone as stated in previous note, pt requested tylenol for pain which she was medicated with. Dr. Piper was notified of pts pain that is not very well managed between doses of dilaudid- he added oxycodone for the pain and it was administered- he was made aware via tiger text that the patient is complaining of 10/10 pain. she was medicated with the oxycodone between her dose of dilaudid. pt will also be started on phenobarb protocol.
[2024-08-19] MEDS: PHENobarbitaL sodium 130 MG/ML IM ONCE 120 MG IM (17:16)
--- NOTE | 2024-08-19 17:20 | PC.NURSE ---
pt medicated with phenobarb per order
[2024-08-19] MEDS: cefTRIAXone sodium 1 GM VIAL IVPUSH (20:47)
[2024-08-19] MEDS: PHENobarbitaL sodium 130 MG/ML VIAL IM Q3Hx2 90 MG IM ×2 (20:53→23:48)
--- NOTE | 2024-08-19 20:56 | PC.NURSE ---
pt medicated per order, pt requested to have mannyien later, will call pharmacy for missing meds as well
[2024-08-19] MEDS: Prazosin HCL 1 MG CAPSULE 4 MG PO (21:20)
[2024-08-19] MEDS: Zolpidem Tartrate 5 MG TABLET PO (22:23)
[2024-08-20] VITALS (11 sets, daily range): BP systolic 105–173; BP diastolic 58–97; PULSE 77–98; RESP 16–20; TEMP 36.2–37.3; O2SAT 95–100
[2024-08-20] MEDS: HYDROmorphone HCl 1 MG/ML SYRINGE IVPUSH ×4 (03:49→20:44)
[2024-08-20] MEDS: ondansetron HCL 4 MG/2 ML VIAL IVPUSH ×2 (03:49→17:29)
[2024-08-20] MEDS: Acetaminophen 325 MG TABLET 650 MG PO (04:47)
[2024-08-20] MEDS: Lactated Ringers 1,000 ML 150 ML IVCONT (04:48)
[2024-08-20] MEDS: oxyCODONE HCl Immed Release 5 MG TABLET PO ×3 (06:12→22:43)
[2024-08-20 07:47] LABS: Alanine Aminotransferase 18 U/L (0-31); Albumin Level 3.4 g/dL (3.5-5.0); Alkaline Phosphatase 94 U/L (39-117); Anion Gap 14 (12-20); Aspartate Amino Transferase 60 U/L (5-31); Bilirubin Total 0.6 mg/dL (0.0-1.0); Blood Urea Nitrogen 6 mg/dL (9-16); Calcium 8.5 mg/dL (8.4-10.2); Carbon Dioxide 25 mmol/L (22-29); Chloride 105 mmol/L (96-108); Creatinine Clr Calc Pharmacy 85.5; Estimated Glomerular Filt Rate > 60; Glucose Random 105 mg/dL (60-115); Potassium 3.2 mmol/L (3.3-5.1); Sodium 141 mmol/L (135-145); Total Protein 6.2 g/dL (6.5-8.0)
[2024-08-20] MEDS: Enoxaparin Sodium 40 MG/0.4 ML SYRINGE SUBCUT (09:29)
[2024-08-20] MEDS: Potassium Chloride/H20 10 MEQ/100 ML PIGGYBACK 100 MEQ IV ×2 (09:32→10:55)
[2024-08-20] MEDS: FLUoxetine HCl 20 MG CAPSULE 40 MG PO (09:33)
[2024-08-20] MEDS: Gabapentin 400 MG CAPSULE PO ×3 (09:33→20:53)
[2024-08-20] MEDS: busPIRone HCl 5 MG TABLET 7.5 MG PO ×3 (09:33→20:54)
[2024-08-20] MEDS: PHENobarbitaL 15 MG TABLET 45 MG PO ×2 (09:33→20:55)
[2024-08-20] MEDS: Topiramate 25 MG TABLET 12.5 MG PO (09:33)
[2024-08-20] MEDS: Buprenorphine/Naloxone 8/2 mg FILM 1 FILM SUBLINGUAL ×3 (09:34→20:53)
--- NOTE | 2024-08-20 09:34 | MHC.CM.PN ---
CM MET WITH PT AT BEDSIDE. PT LIVES ALONE. PT IS INDEPENDENT WITH MOBILITY BUT HAS A CANE/WALKER THAT IS USED NEEDED WHEN BACK ACTS UP. NO SERVICES. +HCP PCP IS A PROVIDER AT [facility]. DP: HOME, NO SERVICES IS THE GOAL. PT WILL NEED A L[facility]FT RIDE HOME. CM WILL CONTINUE TO FOLLOW FOR ANY CHANGE TO DC PLAN/NEEDS.
[2024-08-20] MEDS: diphenhydrAMINE HCL 25 MG CAPSULE PO (10:55)
[2024-08-20] MEDS: Butalb/Acetamin/Caff 50/325/40 TABLET 1 TAB PO (10:55)
--- NOTE | 2024-08-20 11:12 | P.PNGS_ITS ---
Subjective Subjective Date of Service: 08/20/24 Interval history: pt still having abdo pain not well alleviated with pain meds. HIDA positive so will do lap bartolo Physical Exam 2 Vital Signs: Vital Signs: Last Vital Signs Temp 97.1 F 08/20/24 09:28 Pulse 90 08/20/24 09:28 Resp 18 08/20/24 09:28 BP 128/58 L 08/20/24 09:28 Pulse Ox 98 08/20/24 09:28 O2 Del Method Room Air 08/20/24 09:28 BMI result Body Mass Index 25.9 GI: Other: abdomen soft but tender at ruq and epigastric area nd umbilical area Objective Data Active Medications Acetaminophen (Acetaminophen 325 Mg Tablet) 650 mg PO Q6H PRN PRN Reason: Pain, Mild (Pain Scale 1-3), fever or headache Last Admin: 08/20/24 04:47 Dose: 650 mg Documented By: BEAN Buprenorphine/Naloxone (Buprenorphine/Naloxone 8/2 Mg Film) 1 film SUBLINGUAL TID [facility] Last Admin: 08/20/24 09:34 Dose: 1 film Documented By: GIN Buspirone HCl (Buspirone Hcl 5 Mg Tablet) 7.5 mg PO TID [facility] Last Admin: 08/20/24 09:33 Dose: 7.5 mg Documented By: GIN Calcium Carbonate (Calcium Carbonate 750 Mg Tab.Chew) 750 mg PO Q4H PRN PRN Reason: Heartburn Ceftriaxone Sodium (Ceftriaxone Sodium 1 Gm Vial) 1 gm IVPUSH Q24H [facility] Last Admin: 08/19/24 20:47 Dose: 1 gm Documented By: PHOENIX Enoxaparin Sodium (Enoxaparin Sodium 40 Mg/0.4 Ml Syringe) 40 mg SUBCUT DAILY [facility] Last Admin: 08/20/24 09:29 Dose: 40 mg Documented By: GIN Fluoxetine HCl (Fluoxetine Hcl 20 Mg Capsule) 40 mg PO DAILY [facility] Last Admin: 08/20/24 09:33 Dose: 40 mg Documented By: GIN Gabapentin (Gabapentin 400 Mg Capsule) 400 mg PO TID [facility] Last Admin: 08/20/24 09:33 Dose: 400 mg Documented By: GIN Hydromorphone HCl (Hydromorphone Hcl 1 Mg/Ml Syringe) 1 mg IVPUSH Q4H PRN; Protocol PRN Reason: Pain, Severe (Pain Scale 7-10) Last Admin: 08/20/24 09:29 Dose: 1 mg Documented By: GIN Hydroxyzine HCl (Hydroxyzine Hcl 25 Mg Tablet) 25 mg PO TID PRN PRN Reason: Anxiety Lactated Ringer's (Lr) 1,000 mls @ 100 mls/hr IVCONT .Q10H [facility] Last Admin: 08/20/24 04:48 Dose: 150 mls/hr Documented By: BEAN Magnesium Hydroxide (Milk Of Magnesia 30 Ml Oral.Susp) 30 ml PO DAILY PRN PRN Reason: Constipation Melatonin (Melatonin 3 Mg Tablet) 6 mg PO BEDTIME PRN PRN Reason: Insomnia Ondansetron HCl (Ondansetron Hcl 4 Mg/2 Ml Vial) 4 mg IVPUSH Q8H PRN PRN Reason: Nausea and Vomiting Last Admin: 08/20/24 03:49 Dose: 4 mg Documented By: BEAN Oxycodone HCl (Oxycodone Hcl Immed Release 5 Mg Tablet) 5 mg PO Q6H PRN PRN Reason: Pain, Moderate(Pain Scale 4-6) Last Admin: 08/20/24 06:12 Dose: 5 mg Documented By: BEAN Pharmacy Consult (Consult Rx Etoh Phenob Im/Po) 1 each MISCELLANE ONCE PRN; Protocol PRN Reason: Consult order Phenobarbital (Phenobarbital 15 Mg Tablet) 45 mg PO BID [facility]; Protocol Stop: 08/21/24 21:01 Last Admin: 08/20/24 09:33 Dose: 45 mg Documented By: GIN Phenobarbital (Phenobarbital 30 Mg Tablet) 30 mg PO BID [facility]; Protocol Stop: 08/23/24 21:01 Phenobarbital (Phenobarbital 30 Mg Tablet) 30 mg PO DAILY [facility]; Protocol Stop: 08/25/24 09:01 Prazosin HCl (Prazosin Hcl 1 Mg Capsule) 4 mg PO BEDTIME [facility]; Protocol Last Admin: 08/19/24 21:20 Dose: 4 mg Documented By: ESVIN Sodium Chloride (0.9 % Sodium Chloride Flush 3 Ml Syringe) 3 ml IVFLUSH QSHIFT [facility] Last Admin: 08/20/24 07:50 Dose: Not Given Documented By: SATISH Non-Admin Reason: IV Running Topiramate (Topiramate 25 Mg Tablet) 12.5 mg PO DAILY [facility] Last Admin: 08/20/24 09:33 Dose: 12.5 mg Documented By: GIN Zolpidem Tartrate (Zolpidem Tartrate 5 Mg Tablet) 5 mg PO BEDTIME [facility] Last Admin: 08/19/24 22:23 Dose: 5 mg Documented By: ESVIN Labs 08/18/24 18:09 08/20/24 06:23 Labs: Laboratory Results - last 24 hr 08/20/24 06:23 Anion Gap 14 Estim Creat Clear Calc 85.5 Estimated GFR > 60 Random Glucose 105 Calcium 8.5 Total Bilirubin 0.6 AST 60 H ALT 18 Alkaline Phosphatase 94 Total Protein 6.2 L Albumin 3.4 L Procedures Date of Service Date of Service: 08/20/24 Progress Note: A&P Assessment and plan (1) Biliary disease: Status: Acute Plan 49 year old female with abdo pain still- ? biliary vs pancreas - findings with HIDA will suggest cholecystitis - will do lap bartolo today. Risks and benefits discussed with pt and she udnerstands and agrees with the plan Time Spent With Patient Time: Total time managing care of this patient today ____ minutes. Quality Stroke Does the patient have a stroke diagnosis?: No VTE Prior VTE?: No VTE Risk Level:: Medical - moderate - high VTE Device Contraindication: Treatment Not Indicated VTE Drug Contraindication: N/A - Med Ordered
--- NOTE | 2024-08-20 12:01 | P.PNIM_ITS ---
Subjective Subjective Date of Service: 08/20/24 Interval History: abd pain Review of Systems abd pain somewhat improving no fevers Physical Exam 2 Vital Signs: Vital Signs: Last Vital Signs Temp 97.1 F 08/20/24 09:28 Pulse 90 08/20/24 09:28 Resp 18 08/20/24 09:28 BP 128/58 L 08/20/24 09:28 Pulse Ox 98 08/20/24 09:28 O2 Del Method Room Air 08/20/24 09:28 BMI result Body Mass Index 25.9 General: AO X 3, no acute distress heent: normal sclera, normal eye movments Resp: CTA bilateral. CVS: S1,S2,RRR. GI: +BS, NT, no distention, epigastric tenderness somewhat similar Skin: No rash Neuro: motor grossly intact Psych: appropriate affect Objective Data Active Medications Acetaminophen (Acetaminophen 325 Mg Tablet) 650 mg PO Q6H PRN PRN Reason: Pain, Mild (Pain Scale 1-3), fever or headache Last Admin: 08/20/24 04:47 Dose: 650 mg Documented By: BEAN Buprenorphine/Naloxone (Buprenorphine/Naloxone 8/2 Mg Film) 1 film SUBLINGUAL TID [facility] Last Admin: 08/20/24 09:34 Dose: 1 film Documented By: GIN Buspirone HCl (Buspirone Hcl 5 Mg Tablet) 7.5 mg PO TID [facility] Last Admin: 08/20/24 09:33 Dose: 7.5 mg Documented By: GIN Calcium Carbonate (Calcium Carbonate 750 Mg Tab.Chew) 750 mg PO Q4H PRN PRN Reason: Heartburn Ceftriaxone Sodium (Ceftriaxone Sodium 1 Gm Vial) 1 gm IVPUSH Q24H [facility] Last Admin: 08/19/24 20:47 Dose: 1 gm Documented By: PHOEN[place] Enoxaparin Sodium (Enoxaparin Sodium 40 Mg/0.4 Ml Syringe) 40 mg SUBCUT DAILY [facility] Last Admin: 08/20/24 09:29 Dose: 40 mg Documented By: GIN Fluoxetine HCl (Fluoxetine Hcl 20 Mg Capsule) 40 mg PO DAILY [facility] Last Admin: 08/20/24 09:33 Dose: 40 mg Documented By: GIN Gabapentin (Gabapentin 400 Mg Capsule) 400 mg PO TID [facility] Last Admin: 08/20/24 09:33 Dose: 400 mg Documented By: GIN Hydromorphone HCl (Hydromorphone Hcl 1 Mg/Ml Syringe) 1 mg IVPUSH Q4H PRN; Protocol PRN Reason: Pain, Severe (Pain Scale 7-10) Last Admin: 08/20/24 09:29 Dose: 1 mg Documented By: GIN Hydroxyzine HCl (Hydroxyzine Hcl 25 Mg Tablet) 25 mg PO TID PRN PRN Reason: Anxiety Lactated Ringer's (Lr) 1,000 mls @ 100 mls/hr IVCONT .Q10H [facility] Last Infusion: 08/20/24 11:17 Dose: 100 mls/hr Documented By: GIN Magnesium Hydroxide (Milk Of Magnesia 30 Ml Oral.Susp) 30 ml PO DAILY PRN PRN Reason: Constipation Melatonin (Melatonin 3 Mg Tablet) 6 mg PO BEDTIME PRN PRN Reason: Insomnia Ondansetron HCl (Ondansetron Hcl 4 Mg/2 Ml Vial) 4 mg IVPUSH Q8H PRN PRN Reason: Nausea and Vomiting Last Admin: 08/20/24 03:49 Dose: 4 mg Documented By: BEAN Oxycodone HCl (Oxycodone Hcl Immed Release 5 Mg Tablet) 5 mg PO Q6H PRN PRN Reason: Pain, Moderate(Pain Scale 4-6) Last Admin: 08/20/24 06:12 Dose: 5 mg Documented By: BEAN Pharmacy Consult (Consult Rx Etoh Phenob Im/Po) 1 each MISCELLANE ONCE PRN; Protocol PRN Reason: Consult order Phenobarbital (Phenobarbital 15 Mg Tablet) 45 mg PO BID [facility]; Protocol Stop: 08/21/24 21:01 Last Admin: 08/20/24 09:33 Dose: 45 mg Documented By: GIN Phenobarbital (Phenobarbital 30 Mg Tablet) 30 mg PO BID [facility]; Protocol Stop: 08/23/24 21:01 Phenobarbital (Phenobarbital 30 Mg Tablet) 30 mg PO DAILY [facility]; Protocol Stop: 08/25/24 09:01 Prazosin HCl (Prazosin Hcl 1 Mg Capsule) 4 mg PO BEDTIME [facility]; Protocol Last Admin: 08/19/24 21:20 Dose: 4 mg Documented By: ESVIN Sodium Chloride (0.9 % Sodium Chloride Flush 3 Ml Syringe) 3 ml IVFLUSH QSHIFT [facility] Last Admin: 08/20/24 07:50 Dose: Not Given Documented By: SATISH Non-Admin Reason: IV Running Topiramate (Topiramate 25 Mg Tablet) 12.5 mg PO DAILY [facility] Last Admin: 08/20/24 09:33 Dose: 12.5 mg Documented By: GIN Zolpidem Tartrate (Zolpidem Tartrate 5 Mg Tablet) 5 mg PO BEDTIME [facility] Last Admin: 08/19/24 22:23 Dose: 5 mg Documented By: ESVIN Labs 08/18/24 18:09 08/20/24 06:23 Labs: Laboratory Results - last 24 hr 08/20/24 06:23 Anion Gap 14 Estim Creat Clear Calc 85.5 Estimated GFR > 60 Random Glucose 105 Calcium 8.5 Total Bilirubin 0.6 AST 60 H ALT 18 Alkaline Phosphatase 94 Total Protein 6.2 L Albumin 3.4 L Assessment and Plan (1) Biliary disease: Status: Acute (2) Abdominal pain: Status: Acute Plan 49-year-old female with a past medical history significant for abdominal pain, alcohol dependence here with abdominal pain, suspect acute recurrent pancreatitis despite normal lipase and no ct finging of acute pancreatitis, Abdominal pain--DDx Gallblader disease, vs acute pancreatitis. -NPO -IVF -Dilaudid for pain -HIDA scan for dilated gallbladder and +positive davis: hida scan -possible acute cholecystitis plan: on ceftriaxone ,Surgery consult Alcohol dependence and risk of withdrawal -[facility] protocol -folic and thiamine supplement OUD--suboxone Depression--resume meds once home meds verified DVT prophylaxis: Lovenox Quality Stroke Does the patient have a stroke diagnosis?: No VTE Prior VTE?: No VTE Risk Level:: Medical - moderate - high VTE Device Contraindication: Treatment Not Indicated VTE Drug Contraindication: N/A - Med Ordered
[2024-08-20] MEDS: Lactated Ringers 1,000 ML 100 ML IVCONT (12:12)
--- NOTE | 2024-08-20 13:50 | HO.ANESPROP2 ---
HPI - Anesthesia Eval Consult details Narrative: 49 yo admitted with pancreatitis. Presenting for laparoscopic cholecystectomy. On Suboxone. PMFSH Active Problems Active Problems: All Active Problems Biliary disease (Acute) Abdominal pain (Acute) Abdominal pain (Acute) Substance abuse (Acute) Acute pancreatitis (Acute) Family History Family history of problems with anesthesia: No Surgical History History of Problems with Anesthesia: No Social History Social History Household Members: Family Housing: Apartment Do you presently have visiting nurse or other home services: No Alcohol intake: current Alcohol intake frequency: 3 or more drinks per day Alcohol type: hard liquor Patient Tobacco Use Status: Never used Tobacco Second Hand Smoke Exposure: No Substance Use Type: Marijuana Advance Directives Date on File: 06/14/24 service: No Meds Allergies Allergy/AdvReac Type Severity Reaction Status Date / Time ibuprofen [From Motrin] Allergy Rash Verified 08/18/24 17:44 Iodinated Contrast Media Allergy Anaphylaxis Verified 08/18/24 17:44 [Contrast Dye] Active Medications: Current Medications Acetaminophen (Acetaminophen 325 Mg Tablet) 650 mg PO Q6H PRN PRN Reason: Pain, Mild (Pain Scale 1-3), fever or headache Last Admin: 08/20/24 04:47 Dose: 650 mg Buprenorphine/Naloxone (Buprenorphine/Naloxone 8/2 Mg Film) 1 film SUBLINGUAL TID [facility] Last Admin: 08/20/24 09:34 Dose: 1 film Buspirone HCl (Buspirone Hcl 5 Mg Tablet) 7.5 mg PO TID [facility] Last Admin: 08/20/24 09:33 Dose: 7.5 mg Calcium Carbonate (Calcium Carbonate 750 Mg Tab.Chew) 750 mg PO Q4H PRN PRN Reason: Heartburn Ceftriaxone Sodium (Ceftriaxone Sodium 1 Gm Vial) 1 gm IVPUSH Q24H [facility] Last Admin: 08/19/24 20:47 Dose: 1 gm Enoxaparin Sodium (Enoxaparin Sodium 40 Mg/0.4 Ml Syringe) 40 mg SUBCUT DAILY [facility] Last Admin: 08/20/24 09:29 Dose: 40 mg Fluoxetine HCl (Fluoxetine Hcl 20 Mg Capsule) 40 mg PO DAILY [facility] Last Admin: 08/20/24 09:33 Dose: 40 mg Gabapentin (Gabapentin 400 Mg Capsule) 400 mg PO TID [facility] Last Admin: 08/20/24 09:33 Dose: 400 mg Hydromorphone HCl (Hydromorphone Hcl 1 Mg/Ml Syringe) 1 mg IVPUSH Q4H PRN; Protocol PRN Reason: Pain, Severe (Pain Scale 7-10) Last Admin: 08/20/24 09:29 Dose: 1 mg Hydroxyzine HCl (Hydroxyzine Hcl 25 Mg Tablet) 25 mg PO TID PRN PRN Reason: Anxiety Lactated Ringer's (Lr) 1,000 mls @ 100 mls/hr IVCONT .Q10H [facility] Last Admin: 08/20/24 12:12 Dose: 100 mls/hr Magnesium Hydroxide (Milk Of Magnesia 30 Ml Oral.Susp) 30 ml PO DAILY PRN PRN Reason: Constipation Melatonin (Melatonin 3 Mg Tablet) 6 mg PO BEDTIME PRN PRN Reason: Insomnia Ondansetron HCl (Ondansetron Hcl 4 Mg/2 Ml Vial) 4 mg IVPUSH Q8H PRN PRN Reason: Nausea and Vomiting Last Admin: 08/20/24 03:49 Dose: 4 mg Oxycodone HCl (Oxycodone Hcl Immed Release 5 Mg Tablet) 5 mg PO Q6H PRN PRN Reason: Pain, Moderate(Pain Scale 4-6) Last Admin: 08/20/24 12:11 Dose: 5 mg Pharmacy Consult (Consult Rx Etoh Phenob Im/Po) 1 each MISCELLANE ONCE PRN; Protocol PRN Reason: Consult order Phenobarbital (Phenobarbital 15 Mg Tablet) 45 mg PO BID [facility]; Protocol Stop: 08/21/24 21:01 Last Admin: 08/20/24 09:33 Dose: 45 mg Phenobarbital (Phenobarbital 30 Mg Tablet) 30 mg PO BID [facility]; Protocol Stop: 08/23/24 21:01 Phenobarbital (Phenobarbital 30 Mg Tablet) 30 mg PO DAILY [facility]; Protocol Stop: 08/25/24 09:01 Prazosin HCl (Prazosin Hcl 1 Mg Capsule) 4 mg PO BEDTIME [facility]; Protocol Last Admin: 08/19/24 21:20 Dose: 4 mg Sodium Chloride (0.9 % Sodium Chloride Flush 3 Ml Syringe) [facility] Last Admin: 08/20/24 07:50 Dose: Not Given Topiramate (Topiramate 25 Mg Tablet) 12.5 mg PO DAILY [facility] Last Admin: 08/20/24 09:33 Dose: 12.5 mg Zolpidem Tartrate (Zolpidem Tartrate 5 Mg Tablet) 5 mg PO BEDTIME [facility] Last Admin: 08/19/24 22:23 Dose: 5 mg Home Medications ?Medication ?Instructions ?Recorded ?Confirmed ?Last Taken ?Type buprenorphine 8 mg-naloxone 2 mg 1 film sublingual TID 06/08/24 08/19/24 08/17/24 History sublingual film (Suboxone) buspirone 7.5 mg tablet 7.5 mg PO TID 06/08/24 08/19/24 08/17/24 History fluoxetine 40 mg capsule 40 mg PO DAILY 06/08/24 08/19/24 08/17/24 History gabapentin 400 mg capsule 400 mg PO TID 06/08/24 08/19/24 08/17/24 History hydroxyzine pamoate 25 mg capsule 25 - 50 mg PO TID PRN Anxiety 06/08/24 08/19/24 08/17/24 History zolpidem 5 mg tablet 5 mg PO BEDTIME 06/08/24 08/19/24 08/17/24 History elusgej-flwzovpjyxmeq-oejxvwfn 250 2 tab PO Q6H PRN Headache 08/19/24 08/19/24 08/17/24 History mg-250 mg-65 mg tablet (Excedrin Extra Strength) prazosin 2 mg capsule 4 mg PO BEDTIME 08/19/24 08/19/24 08/17/24 History topiramate 25 mg tablet 12.5 mg PO DAILY 08/19/24 08/19/24 08/17/24 History Exam Exam Date and Time: 08/20/24 1350 Height,Weight and Vital Signs: Height 5 ft 2 in Weight 64.2 kg Last Vital Signs Temp 97.1 F 08/20/24 09:28 Pulse 90 08/20/24 09:28 Resp 18 08/20/24 09:28 BP 128/58 L 08/20/24 09:28 Pulse Ox 98 08/20/24 09:28 O2 Del Method Room Air 08/20/24 09:28 Pertinent Lab Results Pertinent Lab Results: Laboratory Tests 08/18/24 08/18/24 08/18/24 17:56 18:06 18:09 WBC 7.3 RBC 4.25 Hgb 10.9 L Hct 32.0 L MCV 75.3 L MCH 25.6 L MCHC 34.1 RDW 15.0 Plt Count 306 MPV 9.6 Immature Gran % (Auto) 0.3 Neut % (Auto) 57.6 Lymph % (Auto) 35.4 [place] % (Auto) 6.0 Eos % (Auto) 0.3 Baso % (Auto) 0.4 Lymph # (Auto) 2.6 [place] # (Auto) 0.4 Eos # (Auto) 0.0 Baso # (Auto) 0.0 Abs Immat Gran (auto) 0.02 Absolute Neuts (auto) 4.2 Absolute Nucleated RBC 0.000 Nucleated RBC % (auto) 0.0 Smear Tech's Comments VERIFIED VBG pH VBG pCO2 VBG pO2 VBG HCO3 VBG O2 Saturation VBG Base Excess Sodium Potassium Chloride Carbon Dioxide Anion Gap BUN Creatinine Estim Creat Clear Calc Estimated GFR Random Glucose Calcium Magnesium Total Bilirubin AST ALT Alkaline Phosphatase Total Protein Albumin Triglycerides Amylase Lipase Beta HCG, Quant 6 Cancelled Urine Color Urine Appearance Urine pH Ur Specific [place] Urine Protein Urine Glucose (UA) Urine Ketones Urine Blood Urine Nitrite Ur Leukocyte Esterase Urine Opiates Screen Ur Buprenorphine Scrn Ur Oxycodone Screen Urine Methadone Screen Urine Fentanyl Screen Ur Barbiturates Screen Ur Phencyclidine Scrn Ur Amphetamines Screen U Benzodiazepines Scrn Urine Cocaine Screen U Marijuana (THC) Screen Ethyl Alcohol 28 Influenza Type A (PCR) NEGATIVE Influenza Type B (PCR) NEGATIVE RSV RNA Qual (PCR) NEGATIVE SARS-CoV-2 RNA (RT-PCR) NEGATIVE 08/18/24 08/18/24 08/19/24 21:32 21:36 02:25 WBC RBC Hgb Hct MCV MCH MCHC RDW Plt Count MPV Immature Gran % (Auto) Neut % (Auto) Lymph % (Auto) [place] % (Auto) Eos % (Auto) Baso % (Auto) Lymph # (Auto) [place] # (Auto) Eos # (Auto) Baso # (Auto) Abs Immat Gran (auto) Absolute Neuts (auto) Absolute Nucleated RBC Nucleated RBC % (auto) Smear Tech's Comments VBG pH 7.44 H VBG pCO2 29 VBG pO2 149 VBG HCO3 20 L VBG O2 Saturation 100.0 VBG Base Excess -2.4 Sodium 141 Potassium 3.8 Chloride 106 Carbon Dioxide 19 L Anion Gap 20 BUN 8 L Creatinine 0.76 Estim Creat Clear Calc 78.7 Estimated GFR > 60 Random Glucose 148 H Calcium 8.9 Magnesium 1.9 Total Bilirubin 0.4 AST 34 H ALT 15 Alkaline Phosphatase 115 Total Protein 8.1 H Albumin 4.5 Triglycerides 110 Amylase 39 Lipase 7 L Beta HCG, Quant Urine Color Yellow Urine Appearance Clear Urine pH 6.0 Ur Specific [place] 1.020 Urine Protein Negative Urine Glucose (UA) Negative Urine Ketones Negative Urine Blood Negative Urine Nitrite Negative Ur Leukocyte Esterase Negative Urine Opiates Screen POSITIVE H Ur Buprenorphine Scrn Positive H Ur Oxycodone Screen Not Detected Urine Methadone Screen Not Detected Urine Fentanyl Screen Not Detected Ur Barbiturates Screen Not Detected Ur Phencyclidine Scrn Not Detected Ur Amphetamines Screen Not Detected U Benzodiazepines Scrn Not Detected Urine Cocaine Screen Not Detected U Marijuana (THC) Screen POSITIVE H Ethyl Alcohol Influenza Type A (PCR) Influenza Type B (PCR) RSV RNA Qual (PCR) SARS-CoV-2 RNA (RT-PCR) 08/20/24 06:23 WBC RBC Hgb Hct MCV MCH MCHC RDW Plt Count MPV Immature Gran % (Auto) Neut % (Auto) Lymph % (Auto) [place] % (Auto) Eos % (Auto) Baso % (Auto) Lymph # (Auto) [place] # (Auto) Eos # (Auto) Baso # (Auto) Abs Immat Gran (auto) Absolute Neuts (auto) Absolute Nucleated RBC Nucleated RBC % (auto) Smear Tech's Comments VBG pH VBG pCO2 VBG pO2 VBG HCO3 VBG O2 Saturation VBG Base Excess Sodium 141 Potassium 3.2 L Chloride 105 Carbon Dioxide 25 Anion Gap 14 BUN 6 L Creatinine 0.70 Estim Creat Clear Calc 85.5 Estimated GFR > 60 Random Glucose 105 Calcium 8.5 Magnesium Total Bilirubin 0.6 AST 60 H ALT 18 Alkaline Phosphatase 94 Total Protein 6.2 L Albumin 3.4 L Triglycerides Amylase Lipase Beta HCG, Quant Urine Color Urine Appearance Urine pH Ur Specific [place] Urine Protein Urine Glucose (UA) Urine Ketones Urine Blood Urine Nitrite Ur Leukocyte Esterase Urine Opiates Screen Ur Buprenorphine Scrn Ur Oxycodone Screen Urine Methadone Screen Urine Fentanyl Screen Ur Barbiturates Screen Ur Phencyclidine Scrn Ur Amphetamines Screen U Benzodiazepines Scrn Urine Cocaine Screen U Marijuana (THC) Screen Ethyl Alcohol Influenza Type A (PCR) Influenza Type B (PCR) RSV RNA Qual (PCR) SARS-CoV-2 RNA (RT-PCR) Airway Mallampati Class: I TM Dist: >3cm Neck ROM: Full Loose/Missing/Broken Teeth: Yes (missing molar left upper jaw) Heart: S1S2 Lungs: CTAB Assessment and Plan Assessment Anesthesia Assessment: Anesthesia Plan Discussed and Chart Reviewed Final Anesthetic Review Family History of Problems with Anesthesia: No History of Problems with Anesthesia: No NPO: Yes ASA Class: III and Emergency Final Preanesthetic Review: No Changes in Pt Med Stat, Meds/Allgs Chart Reviewed, Consent Obtained/Reviewed and Anes Risks/Benef Reviewed Patient Risk: Intermediate Procedure Risk: Intermediate Anesthetic Plan Anesthetic Plan: GA and Agree w/ Assess. and Plan Disposition: Standard PACU
--- NOTE | 2024-08-20 14:27 | MHC.RECOVRN ---
AUDIT-C Brief Intervention Pt had positive screen for unhealthy alcohol use on admission, subsequently met with t/w to discuss alcohol use and recovery supports/options. This database report writer met with patient to discuss current alcohol use and concerns related to increased risk of alcohol related problems.? Pt reports 1-2 big bottles Yolie Port wine daily x 6 years. Pt reports longest period of recovery was 6 years ago; I just stopped for 9 months. Discussed how alcohol use has impacted health, including negative impact on overall physical wellbeing. Withdrawal History: reports hx of seizures Treatment History: no ATS admissions, no outpatient programs, has had 3 hospitalizations related to alcohol use Supports:?5 adult children ranging in ages from 24-34 Discussed risk reduction strategies including drinking below the recommended limit. Provided pt with written resources including information on inpatient and outpatient treatment, GALEN, harm reduction, and recovery coaching. Pt plans to review resources and discuss GALEN with psychiatrist. Pt provided with t/w contact information if questions or concerns arise. Denies other questions or concerns at this time.?
--- NOTE | 2024-08-20 16:04 | W.PM.OPN ---
Operative Note Operative Note Date of Service: 08/20/24 Narrative: Preop diagnosis-- cholecystitis Postop diagnosis--possible chronic cholecystitis Procedure--laparoscopic cholecystectomy Surgeon--Dutchssoon Anesthesia-general endotracheal tube anesthesia The patient is a 49-year-old female with alcohol history who about a month ago was admitted with pancreatitis. She came back in 2 3 days ago complaining of severe pain and this time showing a very large distended gallbladder. HIDA scan was carried out which did not reveal filling of the gallbladder and as a result a concern was acute cholecystitis. She has no gallstones. Pancreas numbers were normal. LFTs were okay. As a result she comes in now to undergo laparoscopic cholecystectomy Findings-- Very large intrahepatic gallbladder distended filled with bile wall not inflamed no pericholecystic fluid. No evidence of really acute cholecystitis -Procedure- Patient was brought to the operative room under Anesthesia guidance was intubated. She had compression stockings placed before induction received preoperative antibiotics. Her abdomen was prepped and draped in standard surgical fashion. An infraumbilical incision was created and numbed up with a 0.25% Marcaine with epinephrine. Dissection was carried down to the anterior abdominal wall fascia which was grasped with Edison's and transected. The 5 mm port was placed in the camera and pneumoperitoneum established and there was no evidence of any significant adhesions. The 5 mm port site was now converted to a 10 and Umana trocar introduced and secured after 0 Vicryl pursestring suture was used. Two other ports were placed in the right upper quadrant 1 in the epigastric area under direct visualization using local. The gallbladder was noted to be in the right upper quadrant was very long in fact that look like an L with the neck tucked underneath the gallbladder and the distal aspect coming across the edge of the gallbladder crossing almost the midline. This aspect was very intrahepatic so it was grasped and taken down from the liver edge with cautery. We did this enough to mobilize the top part so now we could retracted superiorly and laterally. The neck of the gallbladder was now seen and this was grasped superiorly and retracted laterally. What was noted the there was a lot of adhesions of the peritoneum and a short cystic duct and this was dissected out carefully taken down some of the peritoneal attachments such that the cystic duct can be lengthened. Carefully doing so the cystic artery was noted behind it as well this was all dissected out mobilizing the gallbladder little bit laterally off the liver bed in order to get a critical view. This was established and the achieved. The cystic duct was clipped to down and 1 up and transected saying close to the gallbladder there was some spillage of moderate spillage of bile as the clipped in hold very well and then the cystic artery seen behind was clipped using the hook cautery the gallbladder was mobilized off the liver bed and placed in the Endo-Catch bag and removed. The area was suctioned and irrigated with about 3 L of saline in order to remove as much of the spilled bile as possible. The end the effluent being suctioned out was pretty clear. A 7 JALIL drain was left in place from pulled out at the right lateral port site and tucked underneath the liver and the right gutter. Hemostasis was good cystic duct cystic artery clips were intact. The liver base looked good as well. Port sites were then moved the gallbladder has been removed from the infraumbilical port site before the pursestring suture was used to approximate the infraumbilical port site and local use. Monocryl suture in interrupted fashion was used to approximate the skin edges and Steri-Strips and gauze Tegaderm dressings used to cover the port sites at the end of the case all sponge instrument needle counts were correct estimated blood loss was about 20 cc specimens sent was the gallbladder JALIL drain left in place patient was extubated returned stable to the recovery room
[2024-08-20] MEDS: 0.9 % Sodium Chloride Flush 3 ML SYRINGE IVFLUSH (16:47)
[2024-08-20] MEDS: cefTRIAXone sodium 1 GM VIAL IVPUSH (20:53)
[2024-08-20] MEDS: Prazosin HCL 1 MG CAPSULE 4 MG PO (20:53)
[2024-08-20] MEDS: Zolpidem Tartrate 5 MG TABLET PO (22:44)
[2024-08-21] VITALS (9 sets, daily range): BP systolic 95–126; BP diastolic 50–64; PULSE 84–98; RESP 14–18; TEMP 36.4–37.3; O2SAT 94–97
[2024-08-21] MEDS: 0.9 % Sodium Chloride Flush 3 ML SYRINGE IVFLUSH ×4 (00:22→21:10)
[2024-08-21] MEDS: Lactated Ringers 1,000 ML 100 ML IVCONT ×2 (00:23→14:30)
[2024-08-21] MEDS: HYDROmorphone HCl 1 MG/ML SYRINGE IVPUSH ×6 (00:38→18:32)
[2024-08-21] MEDS: oxyCODONE HCl Immed Release 5 MG TABLET PO ×4 (03:03→17:08)
[2024-08-21] MEDS: ondansetron HCL 4 MG/2 ML VIAL IVPUSH (04:29)
[2024-08-21] MEDS: hydrOXYzine HCL 25 MG TABLET PO ×3 (04:29→20:57)
[2024-08-21 07:06] LABS: Alanine Aminotransferase 177 U/L (0-31); Albumin Level 3.6 g/dL (3.5-5.0); Alkaline Phosphatase 130 U/L (39-117); Anion Gap 12 (12-20); Aspartate Amino Transferase 614 U/L (5-31); Bilirubin Total 0.5 mg/dL (0.0-1.0); Blood Urea Nitrogen 5 mg/dL (9-16); Calcium 8.2 mg/dL (8.4-10.2); Carbon Dioxide 25 mmol/L (22-29); Chloride 103 mmol/L (96-108); Creatinine Clr Calc Pharmacy 78.7; Estimated Glomerular Filt Rate > 60; Glucose Random 131 mg/dL (60-115); Sodium 137 mmol/L (135-145); Total Protein 6.2 g/dL (6.5-8.0)
[2024-08-21 07:43] LABS: Magnesium 1.7 mg/dL (1.6-2.6)
[2024-08-21] MEDS: Piperacillin Sodium/Tazobactam 3.375 GM in 0.9 % Sodium Chloride 50 ML IV ×3 (08:12→20:56)
[2024-08-21] MEDS: Buprenorphine/Naloxone 8/2 mg FILM 1 FILM SUBLINGUAL ×3 (08:12→20:56)
[2024-08-21] MEDS: Gabapentin 400 MG CAPSULE PO ×3 (08:12→20:57)
[2024-08-21] MEDS: busPIRone HCl 5 MG TABLET 7.5 MG PO ×3 (08:12→20:56)
[2024-08-21] MEDS: FLUoxetine HCl 20 MG CAPSULE 40 MG PO (08:12)
[2024-08-21] MEDS: PHENobarbitaL 15 MG TABLET 45 MG PO ×2 (08:12→20:56)
[2024-08-21] MEDS: Topiramate 25 MG TABLET 12.5 MG PO (08:13)
[2024-08-21] MEDS: Enoxaparin Sodium 40 MG/0.4 ML SYRINGE SUBCUT (08:13)
[2024-08-21] MEDS: Potassium Chloride/H20 10 MEQ/100 ML PIGGYBACK 100 MEQ IV ×4 (09:07→12:33)
[2024-08-21 10:24] LABS: Alanine Aminotransferase 172 U/L (0-31); Albumin Level 3.5 g/dL (3.5-5.0); Alkaline Phosphatase 126 U/L (39-117); Anion Gap 11 (12-20); Aspartate Amino Transferase 562 U/L (5-31); Bilirubin Total 0.7 mg/dL (0.0-1.0); Blood Urea Nitrogen 4 mg/dL (9-16); Calcium 8.4 mg/dL (8.4-10.2); Carbon Dioxide 27 mmol/L (22-29); Chloride 105 mmol/L (96-108); Creatinine Clr Calc Pharmacy 84.3; Estimated Glomerular Filt Rate > 60; Glucose Random 105 mg/dL (60-115); Sodium 140 mmol/L (135-145); Total Protein 6.1 g/dL (6.5-8.0)
--- NOTE | 2024-08-21 12:22 | HO.PM.IMPN ---
Subjective Subjective Date of Service: 08/21/24 Interval History: abd pain ,elevated lft;s ? Acute cholecystitis Review of Systems Abdominal pain seems similar, status post lap bartolo yesterday. No fever Physical Exam Vital Signs: Vital Signs: Last Vital Signs Temp 99.2 F 08/21/24 11:22 Pulse 85 08/21/24 11:22 Resp 18 08/21/24 11:22 BP 126/64 08/21/24 11:22 Pulse Ox 95 08/21/24 11:22 O2 Del Method Room Air 08/21/24 11:22 O2 Flow Rate 2 08/20/24 16:07 BMI result Body Mass Index 25.9 General: AO X 3, no acute distress heent: normal sclera, normal eye movments Resp: CTA bilateral. CVS: S1,S2,RRR. GI: +BS, NT, no distention, epigastric tenderness similar Skin: No rash Neuro: motor grossly intact Psych: appropriate affect Objective Data Active Medications Buprenorphine/Naloxone (Buprenorphine/Naloxone 8/2 Mg Film) 1 film SUBLINGUAL TID [facility] Last Admin: 08/21/24 08:12 Dose: 1 film Documented By: GIN Buspirone HCl (Buspirone Hcl 5 Mg Tablet) 7.5 mg PO TID [facility] Last Admin: 08/21/24 08:12 Dose: 7.5 mg Documented By: GIN Calcium Carbonate (Calcium Carbonate 750 Mg Tab.Chew) 750 mg PO Q4H PRN PRN Reason: Heartburn Enoxaparin Sodium (Enoxaparin Sodium 40 Mg/0.4 Ml Syringe) 40 mg SUBCUT DAILY [facility] Last Admin: 08/21/24 08:13 Dose: 40 mg Documented By: GIN Fluoxetine HCl (Fluoxetine Hcl 20 Mg Capsule) 40 mg PO DAILY [facility] Last Admin: 08/21/24 08:12 Dose: 40 mg Documented By: GIN Gabapentin (Gabapentin 400 Mg Capsule) 400 mg PO TID [facility] Last Admin: 08/21/24 08:12 Dose: 400 mg Documented By: GIN Hydromorphone HCl (Hydromorphone Hcl 1 Mg/Ml Syringe) 1 mg IVPUSH Q3H PRN; Protocol PRN Reason: Pain, Severe (Pain Scale 7-10) Last Admin: 08/21/24 12:08 Dose: 1 mg Documented By: GIN Hydroxyzine HCl (Hydroxyzine Hcl 25 Mg Tablet) 25 mg PO TID PRN PRN Reason: Anxiety Last Admin: 08/21/24 04:29 Dose: 25 mg Documented By: ALIA Lactated Ringer's (Lr) 1,000 mls @ 100 mls/hr IVCONT .Q10H [facility] Last Infusion: 08/21/24 08:00 Dose: 0 mls/hr Documented By: GIN Piperacillin Sod/Tazobactam (Sod 3.375 gm/ Sodium Chloride) 50 mls @ 100 mls/hr IV Q6H [facility] Last Infusion: 08/21/24 09:13 Dose: Infused Documented By: GIN Magnesium Hydroxide (Milk Of Magnesia 30 Ml Oral.Susp) 30 ml PO DAILY PRN PRN Reason: Constipation Melatonin (Melatonin 3 Mg Tablet) 6 mg PO BEDTIME PRN PRN Reason: Insomnia Naloxone HCl (Naloxone Hcl 0.4 Mg/Ml Vial) 0.04 mg IVPUSH Q5M PRN PRN Reason: Excessive sedation or RR < 8 Ondansetron HCl (Ondansetron Hcl 4 Mg/2 Ml Vial) 4 mg IVPUSH Q8H PRN PRN Reason: Nausea and Vomiting Last Admin: 08/21/24 04:29 Dose: 4 mg Documented By: ALIA Oxycodone HCl (Oxycodone Hcl Immed Release 5 Mg Tablet) 5 mg PO Q4H PRN PRN Reason: Pain, Mild (Pain Scale 1-3) Last Admin: 08/21/24 11:30 Dose: 5 mg Documented By: GIN Oxycodone HCl (Oxycodone Hcl Immed Release 5 Mg Tablet) 10 mg PO Q4H PRN PRN Reason: Pain, Moderate(Pain Scale 4-6) Pharmacy Consult (Consult Rx Etoh Phenob Im/Po) 1 each MISCELLANE ONCE PRN; Protocol PRN Reason: Consult order Phenobarbital (Phenobarbital 15 Mg Tablet) 45 mg PO BID [facility]; Protocol Stop: 08/21/24 21:01 Last Admin: 08/21/24 08:12 Dose: 45 mg Documented By: GIN Phenobarbital (Phenobarbital 30 Mg Tablet) 30 mg PO BID [facility]; Protocol Stop: 08/23/24 21:01 Phenobarbital (Phenobarbital 30 Mg Tablet) 30 mg PO DAILY [facility]; Protocol Stop: 08/25/24 09:01 Prazosin HCl (Prazosin Hcl 1 Mg Capsule) 4 mg PO BEDTIME [facility]; Protocol Last Admin: 08/20/24 20:53 Dose: 4 mg Documented By: ALIA Sodium Chloride (0.9 % Sodium Chloride Flush 3 Ml Syringe) 3 ml IVFLUSH QSHIFT [facility] Last Admin: 08/21/24 08:13 Dose: 3 ml Documented By: GIN Topiramate (Topiramate 25 Mg Tablet) 12.5 mg PO DAILY [facility] Last Admin: 08/21/24 08:13 Dose: 12.5 mg Documented By: GIN Zolpidem Tartrate (Zolpidem Tartrate 5 Mg Tablet) 5 mg PO BEDTIME [facility] Last Admin: 08/20/24 22:44 Dose: 5 mg Documented By: ALIA Labs 08/18/24 18:09 08/21/24 09:57 Labs: Laboratory Results - last 24 hr 08/21/24 08/21/24 05:27 09:57 Hold Purple Top SEE NOTE Anion Gap 12 11 L Estim Creat Clear Calc 78.7 84.3 Estimated GFR > 60 > 60 Random Glucose 131 H 105 Calcium 8.2 L 8.4 Magnesium 1.7 Total Bilirubin 0.5 0.7 AST 614 H 562 H ALT 177 H 172 H Alkaline Phosphatase 130 H 126 H Total Protein 6.2 L 6.1 L Albumin 3.6 3.5 Assessment and Plan (1) Biliary disease: Status: Acute (2) Abdominal pain: Status: Acute Plan 49-year-old female with a past medical history significant for abdominal pain, alcohol dependence here with abdominal pain, suspect acute recurrent pancreatitis despite normal lipase and no ct finging of acute pancreatitis, Abdominal pain--DDx Gallblader disease, vs acute pancreatitis. HIDA scan for dilated gallbladder and +positive davis: hida scan -possible acute cholecystitis plan: s/p lap bartolo IVF,Dilaudid for pain added clears eleavted lft's :likely post surgery , also has hepatic steatosis repeated improving will add hepatits serlogies will continue to moniter Alcohol dependence and risk of withdrawal -CIWA protocol,folic and thiamine supplement OUD--suboxone Depression--resume meds once home meds verified DVT prophylaxis: Lovenox ongoing need for hospitlisation:abd pain -? Gallblader disease, vs acute pancreatitis- need iv hydration,pain meds ,lft's monitering . Quality Stroke Does the patient have a stroke diagnosis?: No VTE Prior VTE?: No VTE Risk Level:: Medical - moderate - high VTE Device Contraindication: Treatment Not Indicated VTE Drug Contraindication: N/A - Med Ordered
[2024-08-21] MEDS: diphenhydrAMINE HCL 25 MG CAPSULE PO (12:33)
--- NOTE | 2024-08-21 13:39 | PM.PNGS ---
Subjective Subjective Date of Service: 08/21/24 Interval history: Patient is still complaining of abdominal pain not sure if it is the same as before hand no nausea but just has trouble trying to be comfortable. Physical Exam Vital Signs: Vital Signs: Last Vital Signs Temp 99.2 F 08/21/24 11:22 Pulse 85 08/21/24 11:22 Resp 18 08/21/24 11:22 BP 126/64 08/21/24 11:22 Pulse Ox 95 08/21/24 11:22 O2 Del Method Room Air 08/21/24 11:22 O2 Flow Rate 2 08/20/24 16:07 BMI result Body Mass Index 25.9 Const: General: cooperative and acute distress moderate GI: Other: Abdomen is soft she is tender everywhere especially at the umbilicus area and the epigastric port site. There some tenderness on the right upper quadrant with some guarding. She got active bowel sounds JALIL drain is draining serosanguineous fluid Objective Data Active Medications Buprenorphine/Naloxone (Buprenorphine/Naloxone 8/2 Mg Film) 1 film SUBLINGUAL TID [facility] Last Admin: 08/21/24 08:12 Dose: 1 film Documented By: GIN Buspirone HCl (Buspirone Hcl 5 Mg Tablet) 7.5 mg PO TID [facility] Last Admin: 08/21/24 08:12 Dose: 7.5 mg Documented By: GIN Calcium Carbonate (Calcium Carbonate 750 Mg Tab.Chew) 750 mg PO Q4H PRN PRN Reason: Heartburn Enoxaparin Sodium (Enoxaparin Sodium 40 Mg/0.4 Ml Syringe) 40 mg SUBCUT DAILY [facility] Last Admin: 08/21/24 08:13 Dose: 40 mg Documented By: GIN Fluoxetine HCl (Fluoxetine Hcl 20 Mg Capsule) 40 mg PO DAILY [facility] Last Admin: 08/21/24 08:12 Dose: 40 mg Documented By: GIN Gabapentin (Gabapentin 400 Mg Capsule) 400 mg PO TID [facility] Last Admin: 08/21/24 08:12 Dose: 400 mg Documented By: GIN Hydromorphone HCl (Hydromorphone Hcl 1 Mg/Ml Syringe) 1 mg IVPUSH Q3H PRN; Protocol PRN Reason: Pain, Severe (Pain Scale 7-10) Last Admin: 08/21/24 12:08 Dose: 1 mg Documented By: GIN Hydroxyzine HCl (Hydroxyzine Hcl 25 Mg Tablet) 25 mg PO TID PRN PRN Reason: Anxiety Last Admin: 08/21/24 04:29 Dose: 25 mg Documented By: ALIA Lactated Ringer's (Lr) 1,000 mls @ 100 mls/hr IVCONT .Q10H [facility] Last Infusion: 08/21/24 08:00 Dose: 0 mls/hr Documented By: GIN Piperacillin Sod/Tazobactam (Sod 3.375 gm/ Sodium Chloride) 50 mls @ 100 mls/hr IV Q6H [facility] Last Infusion: 08/21/24 09:13 Dose: Infused Documented By: GIN Magnesium Hydroxide (Milk Of Magnesia 30 Ml Oral.Susp) 30 ml PO DAILY PRN PRN Reason: Constipation Melatonin (Melatonin 3 Mg Tablet) 6 mg PO BEDTIME PRN PRN Reason: Insomnia Naloxone HCl (Naloxone Hcl 0.4 Mg/Ml Vial) 0.04 mg IVPUSH Q5M PRN PRN Reason: Excessive sedation or RR < 8 Ondansetron HCl (Ondansetron Hcl 4 Mg/2 Ml Vial) 4 mg IVPUSH Q8H PRN PRN Reason: Nausea and Vomiting Last Admin: 08/21/24 04:29 Dose: 4 mg Documented By: ALIA Oxycodone HCl (Oxycodone Hcl Immed Release 5 Mg Tablet) 5 mg PO Q4H PRN PRN Reason: Pain, Mild (Pain Scale 1-3) Last Admin: 08/21/24 11:30 Dose: 5 mg Documented By: GIN Oxycodone HCl (Oxycodone Hcl Immed Release 5 Mg Tablet) 10 mg PO Q4H PRN PRN Reason: Pain, Moderate(Pain Scale 4-6) Pantoprazole Sodium (Pantoprazole Sodium 40 Mg/10 Ml Vial) 40 mg IVPUSH DAILY@0630 [facility] Pharmacy Consult (Consult Rx Etoh Phenob Im/Po) 1 each MISCELLANE ONCE PRN; Protocol PRN Reason: Consult order Phenobarbital (Phenobarbital 15 Mg Tablet) 45 mg PO BID [facility]; Protocol Stop: 08/21/24 21:01 Last Admin: 08/21/24 08:12 Dose: 45 mg Documented By: GIN Phenobarbital (Phenobarbital 30 Mg Tablet) 30 mg PO BID [facility]; Protocol Stop: 08/23/24 21:01 Phenobarbital (Phenobarbital 30 Mg Tablet) 30 mg PO DAILY [facility]; Protocol Stop: 08/25/24 09:01 Prazosin HCl (Prazosin Hcl 1 Mg Capsule) 4 mg PO BEDTIME [facility]; Protocol Last Admin: 08/20/24 20:53 Dose: 4 mg Documented By: ALIA Sodium Chloride (0.9 % Sodium Chloride Flush 3 Ml Syringe) 3 ml IVFLUSH QSHIFT [facility] Last Admin: 08/21/24 08:13 Dose: 3 ml Documented By: GIN Topiramate (Topiramate 25 Mg Tablet) 12.5 mg PO DAILY [facility] Last Admin: 08/21/24 08:13 Dose: 12.5 mg Documented By: GIN Zolpidem Tartrate (Zolpidem Tartrate 5 Mg Tablet) 5 mg PO BEDTIME [facility] Last Admin: 08/20/24 22:44 Dose: 5 mg Documented By: ALIA Labs 08/18/24 18:09 08/21/24 09:57 Labs: Laboratory Results - last 24 hr 08/21/24 08/21/24 05:27 09:57 Hold Purple Top SEE NOTE Anion Gap 12 11 L Estim Creat Clear Calc 78.7 84.3 Estimated GFR > 60 > 60 Random Glucose 131 H 105 Calcium 8.2 L 8.4 Magnesium 1.7 Total Bilirubin 0.5 0.7 AST 614 H 562 H ALT 177 H 172 H Alkaline Phosphatase 130 H 126 H Total Protein 6.2 L 6.1 L Albumin 3.6 3.5 Procedures Date of Service Date of Service: 08/21/24 Progress Note: A&P Assessment and plan (1) Biliary disease: Status: Acute Assessment and Plan: 49-year-old female with abdominal pain question the etiology mixture biliary disease maybe pancreatitis. Patient had a very distended gallbladder on her CT scan and ultrasound and HIDA scan did not reveal filling of the gallbladder. Question concerning acute cholecystitis acalculous. Patient was brought to the operative room and was noted to have a very distended intrahepatic gallbladder. Careful dissection and surgical procedure was carried out where the gallbladder was mobilized from its intrahepatic position and we carefully dissected out the cystic duct which ran directly into the gallbladder and the cystic artery as well. Once we got a critical view the cystic duct was clipped close to the gallbladder and transected such that I believe that the operation was safe and good visualization of the structures were had. Today she is still having abdominal pain and her LFTs are markedly elevated. Her bilirubin remains normal in her alk-phos has a little elevated. AST and ALT are more so. Repeat blood work later on in the day did reveal a downward trend. We will check her LFTs tomorrow. We did do a little bit of cauterized using the very fatty infiltrated liver due to the hip intrahepatic nature of her gallbladder. Uncertain why she continues to have such high amounts of the abdominal pain. We will continue with the IV Dilaudid as well as try little benzodiazepine. Time Spent With Patient Time: Total time managing care of this patient today ____ minutes. Quality Stroke Does the patient have a stroke diagnosis?: No VTE Prior VTE?: No VTE Risk Level:: Medical - moderate - high VTE Device Contraindication: Treatment Not Indicated VTE Drug Contraindication: N/A - Med Ordered
[2024-08-21] MEDS: Pantoprazole Sodium 40 MG/10 ML VIAL IVPUSH (13:40)
--- NOTE | 2024-08-21 13:41 | HO.POSTANES ---
Post Anesthesia Evaluation Post Anesthesia Evaluation Date of Service: 08/21/24 Vital Signs: Vital Signs Temp Pulse Resp BP Pulse Ox O2 Del Method 08/21/24 11:22 99.2 F 85 18 126/64 95 Room Air 08/21/24 07:22 99.2 F 86 16 113/59 L 96 Room Air 08/21/24 04:25 16 08/21/24 03:54 98.2 F 87 18 110/58 L 94 Room Air Anesthesia: General Endotracheal-GETA Mental Status: Awake Pain Control: Satisfactory Nausea/Vomiting: None Hydration: Adequate Anesthesia-Related Issues: No Anes. Related Issues
[2024-08-21] MEDS: LORazepam 2 MG/ML VIAL 1 MG IVPUSH (18:32)
[2024-08-21] MEDS: Zolpidem Tartrate 5 MG TABLET PO (20:57)
[2024-08-21] MEDS: Prazosin HCL 1 MG CAPSULE 4 MG PO (20:57)
[2024-08-21] MEDS: oxyCODONE HCl Immed Release 5 MG TABLET 10 MG PO (21:02)
[2024-08-22] MEDS: Piperacillin Sodium/Tazobactam 3.375 GM in 0.9 % Sodium Chloride 50 ML IV ×4 (01:49→20:51)
[2024-08-22] MEDS: HYDROmorphone HCl 1 MG/ML SYRINGE IVPUSH ×8 (01:55→23:39)
[2024-08-22 03:17] VITALS: BP 108/58; PULSE 89; RESP 16; TEMP 36.2; O2SAT 93
[2024-08-22] MEDS: Pantoprazole Sodium 40 MG/10 ML VIAL IVPUSH (05:48)
[2024-08-22] MEDS: Lactated Ringers 1,000 ML 100 ML IVCONT ×2 (05:52→17:04)
[2024-08-22 06:59] LABS: Alanine Aminotransferase 170 U/L (0-31); Albumin Level 3.2 g/dL (3.5-5.0); Alkaline Phosphatase 172 U/L (39-117); Anion Gap 12 (12-20); Aspartate Amino Transferase 308 U/L (5-31); Bilirubin Total 0.7 mg/dL (0.0-1.0); Blood Urea Nitrogen 3 mg/dL (9-16); Calcium 8.1 mg/dL (8.4-10.2); Carbon Dioxide 25 mmol/L (22-29); Chloride 106 mmol/L (96-108); Creatinine Clr Calc Pharmacy 93.5; Estimated Glomerular Filt Rate > 60; Glucose Random 113 mg/dL (60-115); Potassium 3.3 mmol/L (3.3-5.1); Sodium 140 mmol/L (135-145); Total Protein 5.9 g/dL (6.5-8.0)
[2024-08-22 07:31] VITALS: BP 137/79; PULSE 93; RESP 16; TEMP 37.2; O2SAT 97
[2024-08-22] MEDS: Potassium Chloride/H20 10 MEQ/100 ML PIGGYBACK 100 MEQ IV ×2 (08:01→09:03)
[2024-08-22] MEDS: busPIRone HCl 5 MG TABLET 7.5 MG PO ×3 (08:02→20:41)
[2024-08-22] MEDS: Topiramate 25 MG TABLET 12.5 MG PO (08:02)
[2024-08-22] MEDS: Enoxaparin Sodium 40 MG/0.4 ML SYRINGE SUBCUT (08:02)
[2024-08-22] MEDS: PHENobarbitaL 30 MG TABLET PO ×2 (08:02→20:43)
[2024-08-22] MEDS: FLUoxetine HCl 20 MG CAPSULE 40 MG PO (08:02)
[2024-08-22] MEDS: Gabapentin 400 MG CAPSULE PO ×3 (08:02→20:41)
[2024-08-22] MEDS: Buprenorphine/Naloxone 8/2 mg FILM 1 FILM SUBLINGUAL ×3 (08:02→20:41)
[2024-08-22] MEDS: 0.9 % Sodium Chloride Flush 3 ML SYRINGE IVFLUSH ×2 (08:03→15:31)
[2024-08-22] MEDS: oxyCODONE HCl Immed Release 5 MG TABLET 10 MG PO ×2 (11:19→15:35)
--- NOTE | 2024-08-22 11:24 | P.PNIM_ITS ---
Subjective Subjective Date of Service: 08/22/24 Interval History: abd pain ,elevated lft;s Review of Systems Abdominal pain seems similar, status post lap bartolo. No fever Physical Exam 2 Vital Signs: Vital Signs: Last Vital Signs Temp 99.0 F 08/22/24 07:31 Pulse 93 08/22/24 07:31 Resp 16 08/22/24 07:31 BP 137/79 08/22/24 07:31 Pulse Ox 97 08/22/24 07:31 O2 Del Method Room Air 08/22/24 07:31 O2 Flow Rate 2 08/20/24 16:07 BMI result Body Mass Index 25.9 General: AO X 3, no acute distress heent: normal sclera, normal eye movments Resp: CTA bilateral. CVS: S1,S2,RRR. GI: +BS, NT, no distention, epigastric tenderness similar Skin: No rash Neuro: motor grossly intact Psych: appropriate affect Objective Data Active Medications Buprenorphine/Naloxone (Buprenorphine/Naloxone 8/2 Mg Film) 1 film SUBLINGUAL TID [facility] Last Admin: 08/22/24 08:02 Dose: 1 film Documented By: GIN Buspirone HCl (Buspirone Hcl 5 Mg Tablet) 7.5 mg PO TID [facility] Last Admin: 08/22/24 08:02 Dose: 7.5 mg Documented By: GIN Calcium Carbonate (Calcium Carbonate 750 Mg Tab.Chew) 750 mg PO Q4H PRN PRN Reason: Heartburn Enoxaparin Sodium (Enoxaparin Sodium 40 Mg/0.4 Ml Syringe) 40 mg SUBCUT DAILY [facility] Last Admin: 08/22/24 08:02 Dose: 40 mg Documented By: GIN Fluoxetine HCl (Fluoxetine Hcl 20 Mg Capsule) 40 mg PO DAILY [facility] Last Admin: 08/22/24 08:02 Dose: 40 mg Documented By: GIN Gabapentin (Gabapentin 400 Mg Capsule) 400 mg PO TID [facility] Last Admin: 08/22/24 08:02 Dose: 400 mg Documented By: GIN Hydromorphone HCl (Hydromorphone Hcl 1 Mg/Ml Syringe) 1 mg IVPUSH Q3H PRN; Protocol PRN Reason: Pain, Severe (Pain Scale 7-10) Last Admin: 08/22/24 09:01 Dose: 1 mg Documented By: GIN Hydroxyzine HCl (Hydroxyzine Hcl 25 Mg Tablet) 25 mg PO TID PRN PRN Reason: Anxiety Last Admin: 08/21/24 20:57 Dose: 25 mg Documented By: MATT Lactated Ringer's (Lr) 1,000 mls @ 100 mls/hr IVCONT .Q10H [facility] Last Infusion: 08/22/24 08:00 Dose: 0 mls/hr Documented By: GIN Piperacillin Sod/Tazobactam (Sod 3.375 gm/ Sodium Chloride) 50 mls @ 100 mls/hr IV Q6H [facility] Last Infusion: 08/22/24 08:39 Dose: Infused Documented By: GIN Magnesium Hydroxide (Milk Of Magnesia 30 Ml Oral.Susp) 30 ml PO DAILY PRN PRN Reason: Constipation Melatonin (Melatonin 3 Mg Tablet) 6 mg PO BEDTIME PRN PRN Reason: Insomnia Naloxone HCl (Naloxone Hcl 0.4 Mg/Ml Vial) 0.04 mg IVPUSH Q5M PRN PRN Reason: Excessive sedation or RR < 8 Ondansetron HCl (Ondansetron Hcl 4 Mg/2 Ml Vial) 4 mg IVPUSH Q8H PRN PRN Reason: Nausea and Vomiting Last Admin: 08/21/24 04:29 Dose: 4 mg Documented By: ALIA Oxycodone HCl (Oxycodone Hcl Immed Release 5 Mg Tablet) 5 mg PO Q4H PRN PRN Reason: Pain, Mild (Pain Scale 1-3) Last Admin: 08/21/24 17:08 Dose: 5 mg Documented By: GIN Oxycodone HCl (Oxycodone Hcl Immed Release 5 Mg Tablet) 10 mg PO Q4H PRN PRN Reason: Pain, Moderate(Pain Scale 4-6) Last Admin: 08/22/24 11:19 Dose: 10 mg Documented By: GIN Pantoprazole Sodium (Pantoprazole Sodium 40 Mg/10 Ml Vial) 40 mg IVPUSH DAILY@0630 [facility] Last Admin: 08/22/24 05:48 Dose: 40 mg Documented By: MATT Pharmacy Consult (Consult Rx Etoh Phenob Im/Po) 1 each MISCELLANE ONCE PRN; Protocol PRN Reason: Consult order Phenobarbital (Phenobarbital 30 Mg Tablet) 30 mg PO BID [facility]; Protocol Stop: 08/23/24 21:01 Last Admin: 08/22/24 08:02 Dose: 30 mg Documented By: GIN Phenobarbital (Phenobarbital 30 Mg Tablet) 30 mg PO DAILY [facility]; Protocol Stop: 08/25/24 09:01 Prazosin HCl (Prazosin Hcl 1 Mg Capsule) 4 mg PO BEDTIME [facility]; Protocol Last Admin: 08/21/24 20:57 Dose: 4 mg Documented By: MATT Sodium Chloride (0.9 % Sodium Chloride Flush 3 Ml Syringe) 3 ml IVFLUSH QSHIFT [facility] Last Admin: 08/22/24 08:03 Dose: 3 ml Documented By: GIN Topiramate (Topiramate 25 Mg Tablet) 12.5 mg PO DAILY [facility] Last Admin: 08/22/24 08:02 Dose: 12.5 mg Documented By: GIN Zolpidem Tartrate (Zolpidem Tartrate 5 Mg Tablet) 5 mg PO BEDTIME [facility] Last Admin: 08/21/24 20:57 Dose: 5 mg Documented By: MATT Labs 08/18/24 18:09 08/22/24 05:42 Labs: Laboratory Results - last 24 hr 08/22/24 05:42 Anion Gap 12 Estim Creat Clear Calc 93.5 Estimated GFR > 60 Random Glucose 113 Calcium 8.1 L Total Bilirubin 0.7 AST 308 H ALT 170 H Alkaline Phosphatase 172 H Total Protein 5.9 L Albumin 3.2 L Assessment and Plan (1) Biliary disease: Status: Acute (2) Abdominal pain: Status: Acute Plan 49-year-old female with a past medical history significant for abdominal pain, alcohol dependence here with abdominal pain, suspect acute recurrent pancreatitis despite normal lipase and no ct finging of acute pancreatitis, Abdominal pain--DDx Gallblader disease, vs acute pancreatitis. HIDA scan for dilated gallbladder and +positive davis: hida scan -possible acute cholecystitis plan: s/p lap bartolo IVF,Dilaudid for pain, clears eleavted lft's :likely post surgery , also has hepatic steatosis repeated improving will add hepatits serlogies d/w surgery-rec to ask Gi follow up for elevated lft's - for further ?cbd stone Alcohol dependence and risk of withdrawal -[place] protocol,folic and thiamine supplement. OUD--suboxone Depression--resume meds once home meds verified DVT prophylaxis: Lovenox ongoing need for hospitlisation:abd pain -? Gallblader disease, vs acute pancreatitis- need iv hydration,pain meds ,lft's monitering . Quality Stroke Does the patient have a stroke diagnosis?: No VTE Prior VTE?: No VTE Risk Level:: Medical - moderate - high VTE Device Contraindication: Treatment Not Indicated VTE Drug Contraindication: N/A - Med Ordered
--- NOTE | 2024-08-22 11:24 | PM.PNGS ---
Subjective Subjective Date of Service: 08/22/24 Interval history: still complaining of pain, no nausea Physical Exam Vital Signs: Vital Signs: Last Vital Signs Temp 99.0 F 08/22/24 07:31 Pulse 93 08/22/24 07:31 Resp 16 08/22/24 07:31 BP 137/79 08/22/24 07:31 Pulse Ox 97 08/22/24 07:31 O2 Del Method Room Air 08/22/24 07:31 O2 Flow Rate 2 08/20/24 16:07 BMI result Body Mass Index 25.9 GI: Other: tender diffusely - robina serosanguinous fluid Objective Data Active Medications Buprenorphine/Naloxone (Buprenorphine/Naloxone 8/2 Mg Film) 1 film SUBLINGUAL TID [facility] Last Admin: 08/22/24 08:02 Dose: 1 film Documented By: GIN Buspirone HCl (Buspirone Hcl 5 Mg Tablet) 7.5 mg PO TID [facility] Last Admin: 08/22/24 08:02 Dose: 7.5 mg Documented By: GIN Calcium Carbonate (Calcium Carbonate 750 Mg Tab.Chew) 750 mg PO Q4H PRN PRN Reason: Heartburn Enoxaparin Sodium (Enoxaparin Sodium 40 Mg/0.4 Ml Syringe) 40 mg SUBCUT DAILY [facility] Last Admin: 08/22/24 08:02 Dose: 40 mg Documented By: GIN Fluoxetine HCl (Fluoxetine Hcl 20 Mg Capsule) 40 mg PO DAILY [facility] Last Admin: 08/22/24 08:02 Dose: 40 mg Documented By: GIN Gabapentin (Gabapentin 400 Mg Capsule) 400 mg PO TID [facility] Last Admin: 08/22/24 08:02 Dose: 400 mg Documented By: GIN Hydromorphone HCl (Hydromorphone Hcl 1 Mg/Ml Syringe) 1 mg IVPUSH Q3H PRN; Protocol PRN Reason: Pain, Severe (Pain Scale 7-10) Last Admin: 08/22/24 09:01 Dose: 1 mg Documented By: GIN Hydroxyzine HCl (Hydroxyzine Hcl 25 Mg Tablet) 25 mg PO TID PRN PRN Reason: Anxiety Last Admin: 08/21/24 20:57 Dose: 25 mg Documented By: MATT Lactated Ringer's (Lr) 1,000 mls @ 100 mls/hr IVCONT .Q10H [facility] Last Infusion: 08/22/24 08:00 Dose: 0 mls/hr Documented By: GIN Piperacillin Sod/Tazobactam (Sod 3.375 gm/ Sodium Chloride) 50 mls @ 100 mls/hr IV Q6H [facility] Last Infusion: 08/22/24 08:39 Dose: Infused Documented By: GIN Magnesium Hydroxide (Milk Of Magnesia 30 Ml Oral.Susp) 30 ml PO DAILY PRN PRN Reason: Constipation Melatonin (Melatonin 3 Mg Tablet) 6 mg PO BEDTIME PRN PRN Reason: Insomnia Naloxone HCl (Naloxone Hcl 0.4 Mg/Ml Vial) 0.04 mg IVPUSH Q5M PRN PRN Reason: Excessive sedation or RR < 8 Ondansetron HCl (Ondansetron Hcl 4 Mg/2 Ml Vial) 4 mg IVPUSH Q8H PRN PRN Reason: Nausea and Vomiting Last Admin: 08/21/24 04:29 Dose: 4 mg Documented By: ALIA Oxycodone HCl (Oxycodone Hcl Immed Release 5 Mg Tablet) 5 mg PO Q4H PRN PRN Reason: Pain, Mild (Pain Scale 1-3) Last Admin: 08/21/24 17:08 Dose: 5 mg Documented By: GIN Oxycodone HCl (Oxycodone Hcl Immed Release 5 Mg Tablet) 10 mg PO Q4H PRN PRN Reason: Pain, Moderate(Pain Scale 4-6) Last Admin: 08/22/24 11:19 Dose: 10 mg Documented By: GIN Pantoprazole Sodium (Pantoprazole Sodium 40 Mg/10 Ml Vial) 40 mg IVPUSH DAILY@0630 [facility] Last Admin: 08/22/24 05:48 Dose: 40 mg Documented By: MATT Pharmacy Consult (Consult Rx Etoh Phenob Im/Po) 1 each MISCELLANE ONCE PRN; Protocol PRN Reason: Consult order Phenobarbital (Phenobarbital 30 Mg Tablet) 30 mg PO BID [facility]; Protocol Stop: 08/23/24 21:01 Last Admin: 08/22/24 08:02 Dose: 30 mg Documented By: GIN Phenobarbital (Phenobarbital 30 Mg Tablet) 30 mg PO DAILY [facility]; Protocol Stop: 08/25/24 09:01 Prazosin HCl (Prazosin Hcl 1 Mg Capsule) 4 mg PO BEDTIME [facility]; Protocol Last Admin: 08/21/24 20:57 Dose: 4 mg Documented By: MATT Sodium Chloride (0.9 % Sodium Chloride Flush 3 Ml Syringe) 3 ml IVFLUSH QSHIFT [facility] Last Admin: 08/22/24 08:03 Dose: 3 ml Documented By: GIN Topiramate (Topiramate 25 Mg Tablet) 12.5 mg PO DAILY [facility] Last Admin: 08/22/24 08:02 Dose: 12.5 mg Documented By: GIN Zolpidem Tartrate (Zolpidem Tartrate 5 Mg Tablet) 5 mg PO BEDTIME [facility] Last Admin: 08/21/24 20:57 Dose: 5 mg Documented By: MATT Labs 08/18/24 18:09 08/22/24 05:42 Labs: Laboratory Results - last 24 hr 08/22/24 05:42 Anion Gap 12 Estim Creat Clear Calc 93.5 Estimated GFR > 60 Random Glucose 113 Calcium 8.1 L Total Bilirubin 0.7 AST 308 H ALT 170 H Alkaline Phosphatase 172 H Total Protein 5.9 L Albumin 3.2 L Procedures Date of Service Date of Service: 08/22/24 Progress Note: A&P Assessment and plan (1) Biliary disease: Status: Acute Assessment and Plan: pt pod#2 from lap bartolo - lfts improving - pt still with sig pain by complaints cont with robina drain and po and iv pain meds and follow labs gi consult to assist Time Spent With Patient Time: Total time managing care of this patient today ____ minutes. Quality Stroke Does the patient have a stroke diagnosis?: No VTE Prior VTE?: No VTE Risk Level:: Medical - moderate - high VTE Device Contraindication: Treatment Not Indicated VTE Drug Contraindication: N/A - Med Ordered
[2024-08-22 11:38] VITALS: BP 122/68; PULSE 80; RESP 16; TEMP 37.3; O2SAT 96
[2024-08-22 15:14] VITALS: BP 137/78; PULSE 84; RESP 16; TEMP 37.2; O2SAT 97
[2024-08-22] MEDS: hydrOXYzine HCL 25 MG TABLET PO (18:42)
[2024-08-22 19:52] VITALS: BP 138/86; PULSE 80; RESP 18; TEMP 36.3; O2SAT 97
[2024-08-22] MEDS: Prazosin HCL 1 MG CAPSULE 4 MG PO (20:43)
[2024-08-22] MEDS: Zolpidem Tartrate 5 MG TABLET PO (23:25)
[2024-08-22 23:39] VITALS: BP 132/80; PULSE 85; RESP 18; TEMP 36.3; O2SAT 96
[2024-08-23] MEDS: Piperacillin Sodium/Tazobactam 3.375 GM in 0.9 % Sodium Chloride 50 ML IV ×4 (01:53→20:34)
[2024-08-23] MEDS: oxyCODONE HCl Immed Release 5 MG TABLET 10 MG PO ×5 (01:54→18:29)
[2024-08-23] MEDS: Lactated Ringers 1,000 ML 100 ML IVCONT (02:33)
[2024-08-23] MEDS: HYDROmorphone HCl 1 MG/ML SYRINGE IVPUSH ×5 (02:39→20:33)
[2024-08-23 03:46] VITALS: BP 132/72; PULSE 87; RESP 18; TEMP 36.4; O2SAT 93
[2024-08-23 04:04] LABS: HBS Num1 483.18 mIU/mL (0-7.99); Hepatitis A Antibody IgM 0.24 Index (0-0.79); Hepatitis B Core Antibody Nonreactive (Nonreactive); Hepatitis B Surface Antigen Negative (Negative); ~HepC Num1 0.21 S/CO (0.00-0.79); ~Hepatitis A Antibody IgM Nonreactive (Nonreactive); ~Hepatitis B Surface Antibody REACTIVE (Nonreactive); ~Hepatitis C Antibody Nonreactive (Nonreactive)
[2024-08-23] MEDS: Pantoprazole Sodium 40 MG/10 ML VIAL IVPUSH (06:01)
[2024-08-23 07:03] LABS: Alanine Aminotransferase 91 U/L (0-31); Albumin Level 3.2 g/dL (3.5-5.0); Alkaline Phosphatase 169 U/L (39-117); Anion Gap 10 (12-20); Aspartate Amino Transferase 85 U/L (5-31); Bilirubin Total 0.6 mg/dL (0.0-1.0); Blood Urea Nitrogen 4 mg/dL (9-16); Calcium 8.9 mg/dL (8.4-10.2); Carbon Dioxide 27 mmol/L (22-29); Chloride 106 mmol/L (96-108); Creatinine Clr Calc Pharmacy 96.6; Estimated Glomerular Filt Rate > 60; Glucose Random 122 mg/dL (60-115); Potassium 3.1 mmol/L (3.3-5.1); Sodium 140 mmol/L (135-145); Total Protein 5.8 g/dL (6.5-8.0)
[2024-08-23 07:26] VITALS: BP 108/60; PULSE 88; RESP 18; TEMP 36.5; O2SAT 97
[2024-08-23] MEDS: Potassium Chloride/H20 10 MEQ/100 ML PIGGYBACK 100 MEQ IV ×4 (07:47→12:34)
[2024-08-23] MEDS: PHENobarbitaL 30 MG TABLET PO ×2 (07:51→20:31)
[2024-08-23] MEDS: Topiramate 25 MG TABLET 12.5 MG PO (07:51)
[2024-08-23] MEDS: FLUoxetine HCl 20 MG CAPSULE 40 MG PO (07:51)
[2024-08-23] MEDS: Gabapentin 400 MG CAPSULE PO ×3 (07:51→20:32)
[2024-08-23] MEDS: busPIRone HCl 5 MG TABLET 7.5 MG PO ×3 (07:51→20:32)
[2024-08-23] MEDS: Buprenorphine/Naloxone 8/2 mg FILM 1 FILM SUBLINGUAL ×3 (07:52→20:32)
[2024-08-23] MEDS: Enoxaparin Sodium 40 MG/0.4 ML SYRINGE SUBCUT (07:52)
--- NOTE | 2024-08-23 08:06 | P.PNGS_ITS ---
Subjective Subjective Date of Service: 08/23/24 Interval history: Complains of pain JAILL drain serosanguineous No events reported As per nurse, asking for a lot of narcotics Physical Exam 2 Vital Signs: Vital Signs: Last Vital Signs Temp 97.7 F 08/23/24 07:26 Pulse 88 08/23/24 07:26 Resp 18 08/23/24 07:26 BP 108/60 08/23/24 07:26 Pulse Ox 97 08/23/24 07:26 O2 Del Method Room Air 08/23/24 07:26 O2 Flow Rate 2 08/20/24 16:07 BMI result Body Mass Index 25.9 Const: General: comfortable and no acute distress Eyes: Other: Anicteric Resp: Effort & Inspection: normal respiratory effort Cardio: Rate: regular rate GI: Other: Incisions clean, JALIL drain serosanguineous Palpation (GI): Soft to palpation Objective Data Active Medications Buprenorphine/Naloxone (Buprenorphine/Naloxone 8/2 Mg Film) 1 film SUBLINGUAL TID [facility] Last Admin: 08/23/24 07:52 Dose: 1 film Documented By: REBA Buspirone HCl (Buspirone Hcl 5 Mg Tablet) 7.5 mg PO TID [facility] Last Admin: 08/23/24 07:51 Dose: 7.5 mg Documented By: REBA Calcium Carbonate (Calcium Carbonate 750 Mg Tab.Chew) 750 mg PO Q4H PRN PRN Reason: Heartburn Enoxaparin Sodium (Enoxaparin Sodium 40 Mg/0.4 Ml Syringe) 40 mg SUBCUT DAILY [facility] Last Admin: 08/23/24 07:52 Dose: 40 mg Documented By: REBA Fluoxetine HCl (Fluoxetine Hcl 20 Mg Capsule) 40 mg PO DAILY [facility] Last Admin: 08/23/24 07:51 Dose: 40 mg Documented By: REBA Gabapentin (Gabapentin 400 Mg Capsule) 400 mg PO TID [facility] Last Admin: 08/23/24 07:51 Dose: 400 mg Documented By: REBA Hydromorphone HCl (Hydromorphone Hcl 1 Mg/Ml Syringe) 1 mg IVPUSH Q3H PRN; Protocol PRN Reason: Pain, Severe (Pain Scale 7-10) Last Admin: 08/23/24 07:47 Dose: 1 mg Documented By: REBA Hydroxyzine HCl (Hydroxyzine Hcl 25 Mg Tablet) 25 mg PO TID PRN PRN Reason: Anxiety Last Admin: 08/22/24 18:42 Dose: 25 mg Documented By: GIN Lactated Ringer's (Lr) 1,000 mls @ 100 mls/hr IVCONT .Q10H [facility] Last Admin: 08/23/24 02:33 Dose: 100 mls/hr Documented By: ESTRELLITA Piperacillin Sod/Tazobactam (Sod 3.375 gm/ Sodium Chloride) 50 mls @ 100 mls/hr IV Q6H [facility] Last Admin: 08/23/24 07:50 Dose: 100 mls/hr Documented By: REBA Potassium Chloride (Potassium Chloride/H20) 10 meq in 100 mls @ 100 mls/hr IV Q1H [facility] Stop: 08/23/24 11:29 Last Admin: 08/23/24 07:47 Dose: 100 mls/hr Documented By: REBA Magnesium Hydroxide (Milk Of Magnesia 30 Ml Oral.Susp) 30 ml PO DAILY PRN PRN Reason: Constipation Melatonin (Melatonin 3 Mg Tablet) 6 mg PO BEDTIME PRN PRN Reason: Insomnia Naloxone HCl (Naloxone Hcl 0.4 Mg/Ml Vial) 0.04 mg IVPUSH Q5M PRN PRN Reason: Excessive sedation or RR < 8 Ondansetron HCl (Ondansetron Hcl 4 Mg/2 Ml Vial) 4 mg IVPUSH Q8H PRN PRN Reason: Nausea and Vomiting Last Admin: 08/21/24 04:29 Dose: 4 mg Documented By: ALIA Oxycodone HCl (Oxycodone Hcl Immed Release 5 Mg Tablet) 5 mg PO Q4H PRN PRN Reason: Pain, Mild (Pain Scale 1-3) Last Admin: 08/21/24 17:08 Dose: 5 mg Documented By: GIN Oxycodone HCl (Oxycodone Hcl Immed Release 5 Mg Tablet) 10 mg PO Q4H PRN PRN Reason: Pain, Moderate(Pain Scale 4-6) Last Admin: 08/23/24 06:01 Dose: 10 mg Documented By: REBA Pantoprazole Sodium (Pantoprazole Sodium 40 Mg/10 Ml Vial) 40 mg IVPUSH DAILY@0630 [facility] Last Admin: 08/23/24 06:01 Dose: 40 mg Documented By: REBA Pharmacy Consult (Consult Rx Etoh Phenob Im/Po) 1 each MISCELLANE ONCE PRN; Protocol PRN Reason: Consult order Phenobarbital (Phenobarbital 30 Mg Tablet) 30 mg PO BID [facility]; Protocol Stop: 08/23/24 21:01 Last Admin: 08/23/24 07:51 Dose: 30 mg Documented By: REBA Phenobarbital (Phenobarbital 30 Mg Tablet) 30 mg PO DAILY [facility]; Protocol Stop: 08/25/24 09:01 Prazosin HCl (Prazosin Hcl 1 Mg Capsule) 4 mg PO BEDTIME [facility]; Protocol Last Admin: 08/22/24 20:43 Dose: 4 mg Documented By: ESTRELLITA Sodium Chloride (0.9 % Sodium Chloride Flush 3 Ml Syringe) 3 ml IVFLUSH QSHIFT [facility] Last Admin: 08/23/24 07:52 Dose: Not Given Documented By: REBA Non-Admin Reason: IV Running Topiramate (Topiramate 25 Mg Tablet) 12.5 mg PO DAILY [facility] Last Admin: 08/23/24 07:51 Dose: 12.5 mg Documented By: REBA Zolpidem Tartrate (Zolpidem Tartrate 5 Mg Tablet) 5 mg PO BEDTIME [facility] Last Admin: 08/22/24 23:25 Dose: 5 mg Documented By: ESTRELLITA Labs 08/18/24 18:09 08/23/24 05:31 Labs: Laboratory Results - last 24 hr 08/22/24 08/23/24 05:42 05:31 Anion Gap 10 L Estim Creat Clear Calc 96.6 Estimated GFR > 60 Random Glucose 122 H Calcium 8.9 D Total Bilirubin 0.6 AST 85 H ALT 91 H Alkaline Phosphatase 169 H Total Protein 5.8 L Albumin 3.2 L Hepatitis A IgM Ab Nonreactive Hep Bs Antigen Negative Hep Bs Antibody REACTIVE Hep B Core Total Ab Nonreactive Hepatitis C Ab (EIA) Nonreactive Procedures Date of Service Date of Service: 08/23/24 Progress Note: A&P Assessment and plan (1) Status post laparoscopic cholecystectomy: Status: Acute Assessment and Plan: Continues to have pain issues Looks well clinically Abdomen is soft and benign JALIL drain serosanguineous Bilirubin now normal AST ALT lower Clear liquids, advance diet as tolerated We will follow Time Spent With Patient Time: Total time managing care of this patient today ____ minutes. Quality Stroke Does the patient have a stroke diagnosis?: No VTE Prior VTE?: No VTE Risk Level:: Medical - moderate - high VTE Device Contraindication: Treatment Not Indicated VTE Drug Contraindication: N/A - Med Ordered
--- NOTE | 2024-08-23 09:51 | P.PNIM_ITS ---
Subjective Subjective Date of Service: 08/23/24 Interval History: abd pain ,elevated lft's Review of Systems abd pain seems similar no nausea /vomiting no fevers Physical Exam 2 Vital Signs: Vital Signs: Last Vital Signs Temp 97.7 F 08/23/24 07:26 Pulse 88 08/23/24 07:26 Resp 18 08/23/24 07:26 BP 108/60 08/23/24 07:26 Pulse Ox 97 08/23/24 07:26 O2 Del Method Room Air 08/23/24 07:26 O2 Flow Rate 2 08/20/24 16:07 BMI result Body Mass Index 25.9 General: AO X 3, no acute distress heent: normal sclera, normal eye movements Resp: CTA bilateral. CVS: S1,S2,RRR. GI: +BS, NT, no distention, epigastric tenderness similar Skin: No rash Neuro: motor grossly intact Psych: appropriate affect Objective Data Active Medications Buprenorphine/Naloxone (Buprenorphine/Naloxone 8/2 Mg Film) 1 film SUBLINGUAL TID [facility] Last Admin: 08/23/24 07:52 Dose: 1 film Documented By: REBA Buspirone HCl (Buspirone Hcl 5 Mg Tablet) 7.5 mg PO TID [facility] Last Admin: 08/23/24 07:51 Dose: 7.5 mg Documented By: REBA Calcium Carbonate (Calcium Carbonate 750 Mg Tab.Chew) 750 mg PO Q4H PRN PRN Reason: Heartburn Enoxaparin Sodium (Enoxaparin Sodium 40 Mg/0.4 Ml Syringe) 40 mg SUBCUT DAILY [facility] Last Admin: 08/23/24 07:52 Dose: 40 mg Documented By: REBA Fluoxetine HCl (Fluoxetine Hcl 20 Mg Capsule) 40 mg PO DAILY [facility] Last Admin: 08/23/24 07:51 Dose: 40 mg Documented By: REBA Gabapentin (Gabapentin 400 Mg Capsule) 400 mg PO TID [facility] Last Admin: 08/23/24 07:51 Dose: 400 mg Documented By: REBA Hydromorphone HCl (Hydromorphone Hcl 1 Mg/Ml Syringe) 1 mg IVPUSH Q6H PRN; Protocol PRN Reason: Pain, Severe (Pain Scale 7-10) Hydroxyzine HCl (Hydroxyzine Hcl 25 Mg Tablet) 25 mg PO TID PRN PRN Reason: Anxiety Last Admin: 08/22/24 18:42 Dose: 25 mg Documented By: GIN Lactated Ringer's (Lr) 1,000 mls @ 100 mls/hr IVCONT .Q10H [facility] Last Admin: 08/23/24 02:33 Dose: 100 mls/hr Documented By: ESTRELLITA Piperacillin Sod/Tazobactam (Sod 3.375 gm/ Sodium Chloride) 50 mls @ 100 mls/hr IV Q6H [facility] Last Infusion: 08/23/24 08:27 Dose: Infused Documented By: REBA Potassium Chloride (Potassium Chloride/H20) 10 meq in 100 mls @ 100 mls/hr IV Q1H [facility] Stop: 08/23/24 11:29 Last Admin: 08/23/24 09:09 Dose: 100 mls/hr Documented By: REBA Magnesium Hydroxide (Milk Of Magnesia 30 Ml Oral.Susp) 30 ml PO DAILY PRN PRN Reason: Constipation Melatonin (Melatonin 3 Mg Tablet) 6 mg PO BEDTIME PRN PRN Reason: Insomnia Naloxone HCl (Naloxone Hcl 0.4 Mg/Ml Vial) 0.04 mg IVPUSH Q5M PRN PRN Reason: Excessive sedation or RR < 8 Ondansetron HCl (Ondansetron Hcl 4 Mg/2 Ml Vial) 4 mg IVPUSH Q8H PRN PRN Reason: Nausea and Vomiting Last Admin: 08/21/24 04:29 Dose: 4 mg Documented By: ALIA Oxycodone HCl (Oxycodone Hcl Immed Release 5 Mg Tablet) 5 mg PO Q4H PRN PRN Reason: Pain, Mild (Pain Scale 1-3) Last Admin: 08/21/24 17:08 Dose: 5 mg Documented By: GIN Oxycodone HCl (Oxycodone Hcl Immed Release 5 Mg Tablet) 10 mg PO Q4H PRN PRN Reason: Pain, Moderate(Pain Scale 4-6) Last Admin: 08/23/24 06:01 Dose: 10 mg Documented By: REBA Pantoprazole Sodium (Pantoprazole Sodium 40 Mg/10 Ml Vial) 40 mg IVPUSH DAILY@0630 [facility] Last Admin: 08/23/24 06:01 Dose: 40 mg Documented By: REBA Pharmacy Consult (Consult Rx Etoh Phenob Im/Po) 1 each MISCELLANE ONCE PRN; Protocol PRN Reason: Consult order Phenobarbital (Phenobarbital 30 Mg Tablet) 30 mg PO BID [facility]; Protocol Stop: 08/23/24 21:01 Last Admin: 08/23/24 07:51 Dose: 30 mg Documented By: REBA Phenobarbital (Phenobarbital 30 Mg Tablet) 30 mg PO DAILY [facility]; Protocol Stop: 08/25/24 09:01 Prazosin HCl (Prazosin Hcl 1 Mg Capsule) 4 mg PO BEDTIME [facility]; Protocol Last Admin: 08/22/24 20:43 Dose: 4 mg Documented By: ESTRELLITA Sodium Chloride (0.9 % Sodium Chloride Flush 3 Ml Syringe) 3 ml IVFLUSH QSHIFT [facility] Last Admin: 08/23/24 07:52 Dose: Not Given Documented By: REBA Non-Admin Reason: IV Running Topiramate (Topiramate 25 Mg Tablet) 12.5 mg PO DAILY [facility] Last Admin: 08/23/24 07:51 Dose: 12.5 mg Documented By: REBA Zolpidem Tartrate (Zolpidem Tartrate 5 Mg Tablet) 5 mg PO BEDTIME [facility] Last Admin: 08/22/24 23:25 Dose: 5 mg Documented By: ESTRELLITA Labs 08/18/24 18:09 08/23/24 05:31 Labs: Laboratory Results - last 24 hr 08/22/24 08/23/24 05:42 05:31 Anion Gap 10 L Estim Creat Clear Calc 96.6 Estimated GFR > 60 Random Glucose 122 H Calcium 8.9 D Total Bilirubin 0.6 AST 85 H ALT 91 H Alkaline Phosphatase 169 H Total Protein 5.8 L Albumin 3.2 L Hepatitis A IgM Ab Nonreactive Hep Bs Antigen Negative Hep Bs Antibody REACTIVE Hep B Core Total Ab Nonreactive Hepatitis C Ab (EIA) Nonreactive Assessment and Plan (1) Biliary disease: Status: Acute (2) Abdominal pain: Status: Acute Plan 49-year-old female with a past medical history significant for abdominal pain, alcohol dependence here with abdominal pain, suspect acute recurrent pancreatitis despite normal lipase and no ct finging of acute pancreatitis, Abdominal pain--DDx Gallblader disease, vs acute pancreatitis. HIDA scan for dilated gallbladder and +positive davis: hida scan -possible acute cholecystitis plan: s/p lap bartolo IVF,Dilaudid for pain, mrcp,npo eleavted lft's :likely post surgery , also has hepatic steatosis repeated improving hepatits serlogies for a,c -negative,HBsab positive d/w surgery-rec to ask Gi follow up for elevated lft's - for further ?cbd stone- awiting mrcp/gi followup . Alcohol dependence and risk of withdrawal -CIWA protocol,folic and thiamine supplement. OUD--suboxone Depression--resume meds once home meds verified DVT prophylaxis: Lovenox ongoing need for hospitlisation:abd pain -? Gallblader disease, vs acute pancreatitis- need iv hydration,pain meds ,lft's monitering . Quality Stroke Does the patient have a stroke diagnosis?: No VTE Prior VTE?: No VTE Risk Level:: Medical - moderate - high VTE Device Contraindication: Treatment Not Indicated VTE Drug Contraindication: N/A - Med Ordered
[2024-08-23] MEDS: hydrOXYzine HCL 25 MG TABLET PO ×2 (10:25→19:41)
[2024-08-23 12:00] VITALS: BP 117/72; PULSE 81; RESP 14; TEMP 36.8; O2SAT 97
--- NOTE | 2024-08-23 12:50 | MHC.CM.PN ---
per rounds pt not ready for dc dc plan remains for home
[2024-08-23 15:15] VITALS: BP 132/82; PULSE 81; RESP 20; TEMP 36.5; O2SAT 96
[2024-08-23 19:24] VITALS: BP 137/80; PULSE 84; RESP 20; TEMP 37.1; O2SAT 98
[2024-08-23] MEDS: Prazosin HCL 1 MG CAPSULE 4 MG PO (20:32)
[2024-08-23] MEDS: Zolpidem Tartrate 5 MG TABLET PO (21:21)
[2024-08-23] MEDS: 0.9 % Sodium Chloride Flush 3 ML SYRINGE IVFLUSH (21:22)
[2024-08-24] VITALS (7 sets, daily range): BP systolic 95–131; BP diastolic 54–82; PULSE 77–95; RESP 12–20; TEMP 36.1–37.2; O2SAT 96–99
[2024-08-24] MEDS: Piperacillin Sodium/Tazobactam 3.375 GM in 0.9 % Sodium Chloride 50 ML IV ×4 (02:40→21:01)
[2024-08-24] MEDS: HYDROmorphone HCl 1 MG/ML SYRINGE IVPUSH ×4 (03:33→19:10)
[2024-08-24] MEDS: Pantoprazole Sodium 40 MG/10 ML VIAL IVPUSH (06:12)
[2024-08-24 07:17] LABS: Alanine Aminotransferase 59 U/L (0-31); Albumin Level 3.1 g/dL (3.5-5.0); Alkaline Phosphatase 172 U/L (39-117); Anion Gap 10 (12-20); Aspartate Amino Transferase 39 U/L (5-31); Bilirubin Total 0.5 mg/dL (0.0-1.0); Blood Urea Nitrogen 4 mg/dL (9-16); Calcium 9.1 mg/dL (8.4-10.2); Carbon Dioxide 26 mmol/L (22-29); Chloride 105 mmol/L (96-108); Estimated Glomerular Filt Rate > 60; Glucose Random 115 mg/dL (60-115); Potassium 3.5 mmol/L (3.3-5.1); Sodium 137 mmol/L (135-145); Total Protein 5.9 g/dL (6.5-8.0)
--- NOTE | 2024-08-24 08:07 | P.PNGS_ITS ---
Subjective Subjective Date of Service: 08/24/24 Interval history: Feels better Had a good night Tolerating clear liquids Says she is ready to try regular food Physical Exam 2 Vital Signs: Vital Signs: Last Vital Signs Temp 97.5 F 08/24/24 07:14 Pulse 77 08/24/24 07:14 Resp 16 08/24/24 07:14 BP 108/66 08/24/24 07:14 Pulse Ox 99 08/24/24 07:14 O2 Del Method Room Air 08/24/24 07:14 O2 Flow Rate 2 08/20/24 16:07 BMI result Body Mass Index 25.9 Const: General: comfortable and no acute distress Eyes: Other: Anicteric sclerae Resp: Effort & Inspection: normal respiratory effort Cardio: Rate: regular rate GI: Other: JALIL drain clear serosanguineous, scanty Palpation (GI): Soft to palpation, not firm and no guarding Objective Data Active Medications Buprenorphine/Naloxone (Buprenorphine/Naloxone 8/2 Mg Film) 1 film SUBLINGUAL TID [facility] Last Admin: 08/23/24 20:32 Dose: 1 film Documented By: ANDREA Buspirone HCl (Buspirone Hcl 5 Mg Tablet) 7.5 mg PO TID [facility] Last Admin: 08/23/24 20:32 Dose: 7.5 mg Documented By: ANDREA Calcium Carbonate (Calcium Carbonate 750 Mg Tab.Chew) 750 mg PO Q4H PRN PRN Reason: Heartburn Enoxaparin Sodium (Enoxaparin Sodium 40 Mg/0.4 Ml Syringe) 40 mg SUBCUT DAILY [facility] Last Admin: 08/23/24 07:52 Dose: 40 mg Documented By: REBA Fluoxetine HCl (Fluoxetine Hcl 20 Mg Capsule) 40 mg PO DAILY [facility] Last Admin: 08/23/24 07:51 Dose: 40 mg Documented By: REBA Gabapentin (Gabapentin 400 Mg Capsule) 400 mg PO TID [facility] Last Admin: 08/23/24 20:32 Dose: 400 mg Documented By: ANDREA Hydromorphone HCl (Hydromorphone Hcl 1 Mg/Ml Syringe) 1 mg IVPUSH Q4H PRN; Protocol PRN Reason: Pain, Severe (Pain Scale 7-10) Last Admin: 08/24/24 03:33 Dose: 1 mg Documented By: ANDREA Hydroxyzine HCl (Hydroxyzine Hcl 25 Mg Tablet) 25 mg PO TID PRN PRN Reason: Anxiety Last Admin: 08/23/24 19:41 Dose: 25 mg Documented By: ANDREA Piperacillin Sod/Tazobactam (Sod 3.375 gm/ Sodium Chloride) 50 mls @ 100 mls/hr IV Q6H [facility] Last Infusion: 08/24/24 03:16 Dose: Infused Documented By: ANDREA Magnesium Hydroxide (Milk Of Magnesia 30 Ml Oral.Susp) 30 ml PO DAILY PRN PRN Reason: Constipation Melatonin (Melatonin 3 Mg Tablet) 6 mg PO BEDTIME PRN PRN Reason: Insomnia Naloxone HCl (Naloxone Hcl 0.4 Mg/Ml Vial) 0.04 mg IVPUSH Q5M PRN PRN Reason: Excessive sedation or RR < 8 Ondansetron HCl (Ondansetron Hcl 4 Mg/2 Ml Vial) 4 mg IVPUSH Q8H PRN PRN Reason: Nausea and Vomiting Last Admin: 08/21/24 04:29 Dose: 4 mg Documented By: ALIA Oxycodone HCl (Oxycodone Hcl Immed Release 5 Mg Tablet) 5 mg PO Q4H PRN PRN Reason: Pain, Mild (Pain Scale 1-3) Last Admin: 08/21/24 17:08 Dose: 5 mg Documented By: GIN Oxycodone HCl (Oxycodone Hcl Immed Release 5 Mg Tablet) 10 mg PO Q4H PRN PRN Reason: Pain, Moderate(Pain Scale 4-6) Last Admin: 08/23/24 18:29 Dose: 10 mg Documented By: HOLLEY Pantoprazole Sodium (Pantoprazole Sodium 40 Mg/10 Ml Vial) 40 mg IVPUSH DAILY@0630 [facility] Last Admin: 08/24/24 06:12 Dose: 40 mg Documented By: ANDREA Pharmacy Consult (Consult Rx Etoh Phenob Im/Po) 1 each MISCELLANE ONCE PRN; Protocol PRN Reason: Consult order Phenobarbital (Phenobarbital 30 Mg Tablet) 30 mg PO DAILY [facility]; Protocol Stop: 08/25/24 09:01 Prazosin HCl (Prazosin Hcl 1 Mg Capsule) 4 mg PO BEDTIME [facility]; Protocol Last Admin: 08/23/24 20:32 Dose: 4 mg Documented By: ANDREA Sodium Chloride (0.9 % Sodium Chloride Flush 3 Ml Syringe) 3 ml IVFLUSH QSHIFT [facility] Last Admin: 08/23/24 21:22 Dose: 3 ml Documented By: ANDREA Topiramate (Topiramate 25 Mg Tablet) 12.5 mg PO DAILY [facility] Last Admin: 08/23/24 07:51 Dose: 12.5 mg Documented By: REBA Zolpidem Tartrate (Zolpidem Tartrate 5 Mg Tablet) 5 mg PO BEDTIME [facility] Last Admin: 08/23/24 21:21 Dose: 5 mg Documented By: ANDREA Labs 08/18/24 18:09 08/24/24 05:43 Labs: Laboratory Results - last 24 hr 08/24/24 05:43 Anion Gap 10 L Estim Creat Clear Calc 95.0 Estimated GFR > 60 Random Glucose 115 Calcium 9.1 Total Bilirubin 0.5 AST 39 H ALT 59 H Alkaline Phosphatase 172 H Total Protein 5.9 L Albumin 3.1 L Procedures Date of Service Date of Service: 08/24/24 Progress Note: A&P Assessment and plan (1) Status post laparoscopic cholecystectomy: Status: Acute Assessment and Plan: Less tender, pain much improved Looks well Abdomen soft and benign JALIL drain serosanguineous, scanty MRCP not read yet LFTs now normalized If MRCP okay, would DC JALIL drain Okay for regular diet today Time Spent With Patient Time: Total time managing care of this patient today ____ minutes. Quality Stroke Does the patient have a stroke diagnosis?: No VTE Prior VTE?: No VTE Risk Level:: Medical - moderate - high VTE Device Contraindication: Treatment Not Indicated VTE Drug Contraindication: N/A - Med Ordered
[2024-08-24] MEDS: 0.9 % Sodium Chloride Flush 3 ML SYRINGE IVFLUSH ×2 (08:13→15:30)
[2024-08-24] MEDS: Enoxaparin Sodium 40 MG/0.4 ML SYRINGE SUBCUT (08:14)
[2024-08-24] MEDS: FLUoxetine HCl 20 MG CAPSULE 40 MG PO (08:15)
[2024-08-24] MEDS: busPIRone HCl 5 MG TABLET 7.5 MG PO ×3 (08:15→20:58)
[2024-08-24] MEDS: PHENobarbitaL 30 MG TABLET PO (08:16)
[2024-08-24] MEDS: Gabapentin 400 MG CAPSULE PO ×3 (08:16→20:58)
[2024-08-24] MEDS: Topiramate 25 MG TABLET 12.5 MG PO (08:17)
[2024-08-24 09:08] LABS: Alanine Aminotransferase 62 U/L (0-31); Albumin Level 3.2 g/dL (3.5-5.0); Alkaline Phosphatase 165 U/L (39-117); Anion Gap 8 (12-20); Aspartate Amino Transferase 37 U/L (5-31); Bilirubin Total 0.4 mg/dL (0.0-1.0); Blood Urea Nitrogen 3 mg/dL (9-16); Calcium 8.5 mg/dL (8.4-10.2); Carbon Dioxide 26 mmol/L (22-29); Chloride 105 mmol/L (96-108); Creatinine Clr Calc Pharmacy 101.5; Estimated Glomerular Filt Rate > 60; Glucose Random 123 mg/dL (60-115); Potassium 3.3 mmol/L (3.3-5.1); Sodium 136 mmol/L (135-145); Total Protein 5.8 g/dL (6.5-8.0)
[2024-08-24] MEDS: Buprenorphine/Naloxone 8/2 mg FILM 1 FILM SUBLINGUAL ×3 (09:26→21:00)
--- NOTE | 2024-08-24 10:23 | CONS_ITS ---
DATE OF SERVICE: 08/23/2024 REFERRING PHYSICIAN: Dr. Beth REASON FOR CONSULTATION: Elevated liver function tests, status post laparoscopic cholecystectomy. HISTORY OF PRESENT ILLNESS: Patient is a pleasant 49-year-old woman, who was admitted to the hospital on August 19 with complaints of epigastric pain. She was evaluated in the emergency department with 4 days of epigastric pain consistent with previous episodes of pancreatitis, which she has had in relation to alcohol use. Evaluation in the emergency department showed a normal lipase and no pancreatitis. Her gallbladder was noted to be dilated and she did have a positive Barragan sign on ultrasound evaluation. Further imaging was obtained with a HIDA scan, which showed nonvisualization of the gallbladder on HIDA scan consistent with acute cholecystitis. She was seen in consultation by General Surgery and subsequently underwent laparoscopic cholecystectomy on August 20, which was remarkable for a very intrahepatic gallbladder, which required dissection along the liver bed. Postoperatively, she had a drain placed and postoperatively has been having abdominal discomfort requiring narcotic pain medications. Liver function tests were slightly elevated prior to her cholecystectomy and following surgery was noted to be more significantly elevated with an AST of 614, ALT 177, and alkaline phosphatase 130. These have generally improved. Bilirubin has been normal. She underwent MRCP, which was pending. Additional findings at the time of laparoscopic cholecystectomy indicated fatty liver change. PAST MEDICAL HISTORY: 1. Alcohol abuse with heavy liquor usage on a daily basis. 2. Substance abuse with cocaine. 3. Carpal tunnel syndrome. 4. Coronary artery disease with history of an NSTEMI. 5. Hyperlipidemia. 6. Impaired fasting glucose. 7. Depression. 8. Menorrhagia, status post hysterectomy. 9. Anemia. 10. DVT. 11. Gastroesophageal reflux disease. CURRENT MEDICATIONS: Her current medication list is reviewed in the chart. ALLERGIES: IBUPROFEN AND CONTRAST MATERIAL. FAMILY HISTORY: This is reviewed with the patient and is noncontributory. SOCIAL HISTORY: Substance abuse as above. REVIEW OF SYSTEMS: SKIN: No pruritus. HEENT: Negative. CARDIOPULMONARY: No shortness of breath or chest pain. GASTROINTESTINAL: As above. GENITOURINARY: Negative. NEUROPSYCHIATRIC: Negative. PHYSICAL EXAMINATION: GENERAL: Shows a pleasant female, lying comfortably in bed, complaining of pain. SKIN: Anicteric. HEENT: Shows no scleral icterus. NECK: Without lymphadenopathy or thyromegaly. LUNGS: Clear. HEART: Shows regular rate and rhythm. S1, S2. No murmur. ABDOMEN: Soft. There is some mild tenderness to palpation diffusely. Bowel sounds are present with a drain appears to be draining serosanguineous fluid and not bile. EXTREMITIES: Without edema. LABORATORY DATA: Reviewed. IMPRESSION: Elevated liver function tests, post laparoscopic cholecystectomy. This is likely a combination of her underlying fatty liver with a history of alcohol abuse and the recent cholecystectomy involving significant dissection along the gallbladder bed and liver. Her liver function tests could also be elevated because of her exposure to general anesthesia. These appear to be improving. MRI has been obtained and reading is pending. I agree with treating her symptomatically with pain medication as you are doing and following her liver function tests. Thanks for asking me to see her. I will follow her in the hospital with you. MD BERNY Barney/BEAR / [phone]
[2024-08-24] MEDS: oxyCODONE HCl Immed Release 5 MG TABLET 10 MG PO ×3 (10:49→21:38)
--- NOTE | 2024-08-24 11:57 | MHC.RECOVSUP ---
I was referred to this pt, so I have attempted to visit pt multiple times over the course of the last 2 days and each time I've been told to come back with: now is not a good time , I just took my meds and I m not feeling well , sorry I'm on the phone etc... I will leave pt my business card and they can contact me if they are interested in further information about recovery coaching.
--- NOTE | 2024-08-24 14:26 | HO.PM.IMPN ---
Subjective Subjective Date of Service: 08/24/24 Interval History: abd pain Review of Systems abd pain similar no fevers Physical Exam Vital Signs: Vital Signs: Last Vital Signs Temp 96.9 F 08/24/24 11:33 Pulse 82 08/24/24 11:33 Resp 12 08/24/24 11:33 BP 97/66 08/24/24 11:33 Pulse Ox 96 08/24/24 11:33 O2 Del Method Room Air 08/24/24 11:33 O2 Flow Rate 2 08/20/24 16:07 BMI result Body Mass Index 25.9 General: AO X 3, no acute distress heent: normal sclera, normal eye movements Resp: CTA bilateral. CVS: S1,S2,RRR. GI: +BS, NT, no distention, epigastric tenderness similar Skin: No rash Neuro: motor grossly intact Psych: appropriate affect Objective Data Active Medications Buprenorphine/Naloxone (Buprenorphine/Naloxone 8/2 Mg Film) 1 film [facility]BL[facility]UAL [facility] Last Admin: 08/24/24 09:26 Dose: 1 film Documented By: BECCA Buspirone HCl (Buspirone Hcl 5 Mg Tablet) 7.5 mg PO TID [facility] Last Admin: 08/24/24 08:15 Dose: 7.5 mg Documented By: BECCA Calcium Carbonate (Calcium Carbonate 750 Mg Tab.Chew) 750 mg PO Q4H PRN PRN Reason: Heartburn Enoxaparin Sodium (Enoxaparin Sodium 40 Mg/0.4 Ml Syringe) 40 mg SUBCUT DAILY [facility] Last Admin: 08/24/24 08:14 Dose: 40 mg Documented By: BECCA Fluoxetine HCl (Fluoxetine Hcl 20 Mg Capsule) 40 mg PO DAILY [facility] Last Admin: 08/24/24 08:15 Dose: 40 mg Documented By: BECCA Gabapentin (Gabapentin 400 Mg Capsule) 400 mg PO TID [facility] Last Admin: 08/24/24 08:16 Dose: 400 mg Documented By: BECCA Hydromorphone HCl (Hydromorphone Hcl 1 Mg/Ml Syringe) 1 mg IVPUSH Q4H PRN; Protocol PRN Reason: Pain, Severe (Pain Scale 7-10) Last Admin: 08/24/24 13:25 Dose: 1 mg Documented By: EDWARD Hydroxyzine HCl (Hydroxyzine Hcl 25 Mg Tablet) 25 mg PO TID PRN PRN Reason: Anxiety Last Admin: 08/23/24 19:41 Dose: 25 mg Documented By: ANDREA Piperacillin Sod/Tazobactam (Sod 3.375 gm/ Sodium Chloride) 50 mls @ 100 mls/hr IV Q6H [facility] Last Admin: 08/24/24 13:24 Dose: 100 mls/hr Documented By: EDWARD Magnesium Hydroxide (Milk Of Magnesia 30 Ml Oral.Susp) 30 ml PO DAILY PRN PRN Reason: Constipation Melatonin (Melatonin 3 Mg Tablet) 6 mg PO BEDTIME PRN PRN Reason: Insomnia Naloxone HCl (Naloxone Hcl 0.4 Mg/Ml Vial) 0.04 mg IVPUSH Q5M PRN PRN Reason: Excessive sedation or RR < 8 Ondansetron HCl (Ondansetron Hcl 4 Mg/2 Ml Vial) 4 mg IVPUSH Q8H PRN PRN Reason: Nausea and Vomiting Last Admin: 08/21/24 04:29 Dose: 4 mg Documented By: ALIA Oxycodone HCl (Oxycodone Hcl Immed Release 5 Mg Tablet) 5 mg PO Q4H PRN PRN Reason: Pain, Mild (Pain Scale 1-3) Last Admin: 08/21/24 17:08 Dose: 5 mg Documented By: GIN Oxycodone HCl (Oxycodone Hcl Immed Release 5 Mg Tablet) 10 mg PO Q4H PRN PRN Reason: Pain, Moderate(Pain Scale 4-6) Last Admin: 08/24/24 10:49 Dose: 10 mg Documented By: EARLENE Pharmacy Consult (Consult Rx Etoh Phenob Im/Po) 1 each MISCELLANE ONCE PRN; Protocol PRN Reason: Consult order Phenobarbital (Phenobarbital 30 Mg Tablet) 30 mg PO DAILY [facility]; Protocol Stop: 08/25/24 09:01 Last Admin: 08/24/24 08:16 Dose: 30 mg Documented By: BECCA Prazosin HCl (Prazosin Hcl 1 Mg Capsule) 4 mg PO BEDTIME [facility]; Protocol Last Admin: 08/23/24 20:32 Dose: 4 mg Documented By: ANDREA Sodium Chloride (0.9 % Sodium Chloride Flush 3 Ml Syringe) 3 ml IVFLUSH QSHIFT [facility] Last Admin: 08/24/24 08:13 Dose: 3 ml Documented By: BECCA Topiramate (Topiramate 25 Mg Tablet) 12.5 mg PO DAILY [facility] Last Admin: 08/24/24 08:17 Dose: 12.5 mg Documented By: BECCA Zolpidem Tartrate (Zolpidem Tartrate 5 Mg Tablet) 5 mg PO BEDTIME [facility] Last Admin: 08/23/24 21:21 Dose: 5 mg Documented By: ANDREA Labs 08/18/24 18:09 08/24/24 07:58 Labs: Laboratory Results - last 24 hr 08/24/24 08/24/24 05:43 07:58 Anion Gap 10 L 8 L Estim Creat Clear Calc 95.0 101.5 Estimated GFR > 60 > 60 Random Glucose 115 123 H Calcium 9.1 8.5 D Total Bilirubin 0.5 0.4 AST 39 H 37 H ALT 59 H 62 H Alkaline Phosphatase 172 H 165 H Total Protein 5.9 L 5.8 L Albumin 3.1 L 3.2 L Assessment and Plan (1) Biliary disease: Status: Acute (2) Abdominal pain: Status: Acute Plan 49-year-old female with a past medical history significant for abdominal pain, alcohol dependence here with abdominal pain, suspect acute recurrent pancreatitis despite normal lipase and no ct finging of acute pancreatitis, Abdominal pain--DDx Gallblader disease, vs acute pancreatitis. HIDA scan for dilated gallbladder and +positive davis: hida scan -possible acute cholecystitis plan: s/p lap bartolo IVF,Dilaudid for pain, mrcp,npo eleavted lft's :improving,likely post surgery , also has hepatic steatosis repeated improving hepatits serlogies for a,c -negative,HBsab positive d/w surgery-rec to ask Gi follow up for elevated lft's - for further ?cbd stone-awiting mrcp/gi followup . Alcohol dependence and risk of withdrawal -CIWA protocol,folic and thiamine supplement. OUD--suboxone Depression--resume meds once home meds verified DVT prophylaxis: Lovenox ongoing need for hospitlisation:abd pain -? Gallblader disease, vs acute pancreatitis- need iv hydration,pain meds ,lft's monitering . MRCP-pending results called for reporting back. Quality Stroke Does the patient have a stroke diagnosis?: No VTE Prior VTE?: No VTE Risk Level:: Medical - moderate - high VTE Device Contraindication: Treatment Not Indicated VTE Drug Contraindication: N/A - Med Ordered
[2024-08-24] MEDS: ondansetron HCL 4 MG/2 ML VIAL IVPUSH (16:10)
[2024-08-24] MEDS: Prazosin HCL 1 MG CAPSULE 4 MG PO (20:58)
[2024-08-24] MEDS: Zolpidem Tartrate 5 MG TABLET PO (22:28)
[2024-08-25] MEDS: 0.9 % Sodium Chloride Flush 3 ML SYRINGE IVFLUSH ×3 (00:20→20:11)
[2024-08-25] MEDS: Piperacillin Sodium/Tazobactam 3.375 GM in 0.9 % Sodium Chloride 50 ML IV ×4 (01:57→20:09)
[2024-08-25] MEDS: HYDROmorphone HCl 1 MG/ML SYRINGE IVPUSH ×3 (01:57→13:30)
[2024-08-25 03:22] VITALS: BP 112/56; PULSE 84; RESP 16; TEMP 36.1; O2SAT 95
[2024-08-25] MEDS: oxyCODONE HCl Immed Release 5 MG TABLET 10 MG PO ×4 (05:12→20:35)
[2024-08-25 07:26] VITALS: BP 109/69; PULSE 78; RESP 16; TEMP 36; O2SAT 92
[2024-08-25] MEDS: Acetaminophen 325 MG TABLET 650 MG PO (07:45)
[2024-08-25] MEDS: Topiramate 25 MG TABLET 12.5 MG PO (07:54)
[2024-08-25] MEDS: Gabapentin 400 MG CAPSULE PO ×3 (07:54→20:35)
[2024-08-25] MEDS: busPIRone HCl 5 MG TABLET 7.5 MG PO ×3 (07:54→20:36)
[2024-08-25] MEDS: Buprenorphine/Naloxone 8/2 mg FILM 1 FILM SUBLINGUAL ×3 (07:55→20:36)
[2024-08-25] MEDS: FLUoxetine HCl 20 MG CAPSULE 40 MG PO (07:55)
[2024-08-25] MEDS: PHENobarbitaL 30 MG TABLET PO (07:55)
[2024-08-25] MEDS: Enoxaparin Sodium 40 MG/0.4 ML SYRINGE SUBCUT (07:55)
--- NOTE | 2024-08-25 08:17 | P.PNGS_ITS ---
Subjective Subjective Date of Service: 08/25/24 Interval history: No events reported Tolerating regular diet Says she still needs pain meds Ambulating Physical Exam 2 Vital Signs: Vital Signs: Last Vital Signs Temp 96.8 F 08/25/24 07:26 Pulse 78 08/25/24 07:26 Resp 16 08/25/24 07:26 BP 109/69 08/25/24 07:26 Pulse Ox 92 08/25/24 07:26 O2 Del Method Room Air 08/25/24 07:26 O2 Flow Rate 2 08/20/24 16:07 BMI result Body Mass Index 25.9 Const: Other: Looks well General: comfortable and no acute distress Resp: Effort & Inspection: normal respiratory effort GI: Other: Incisions clean and dry, JALIL with minimal serosanguineous out Palpation (GI): Soft to palpation, not firm and no guarding Objective Data Active Medications Acetaminophen (Acetaminophen 325 Mg Tablet) 650 mg PO Q6H PRN PRN Reason: Pain, Moderate(Pain Scale 4-6) Last Admin: 08/25/24 07:45 Dose: 650 mg Documented By: PEREZ Buprenorphine/Naloxone (Buprenorphine/Naloxone 8/2 Mg Film) 1 film SUBLINGUAL TID [facility] Last Admin: 08/25/24 07:55 Dose: 1 film Documented By: PEREZ Buspirone HCl (Buspirone Hcl 5 Mg Tablet) 7.5 mg PO TID [facility] Last Admin: 08/25/24 07:54 Dose: 7.5 mg Documented By: PEREZ Calcium Carbonate (Calcium Carbonate 750 Mg Tab.Chew) 750 mg PO Q4H PRN PRN Reason: Heartburn Enoxaparin Sodium (Enoxaparin Sodium 40 Mg/0.4 Ml Syringe) 40 mg SUBCUT DAILY [facility] Last Admin: 08/25/24 07:55 Dose: 40 mg Documented By: PEREZ Fluoxetine HCl (Fluoxetine Hcl 20 Mg Capsule) 40 mg PO DAILY [facility] Last Admin: 08/25/24 07:55 Dose: 40 mg Documented By: PEREZ Gabapentin (Gabapentin 400 Mg Capsule) 400 mg PO TID [facility] Last Admin: 08/25/24 07:54 Dose: 400 mg Documented By: PEREZ Hydromorphone HCl (Hydromorphone Hcl 1 Mg/Ml Syringe) 1 mg IVPUSH Q4H PRN; Protocol PRN Reason: Pain, Severe (Pain Scale 7-10) Last Admin: 08/25/24 07:45 Dose: 1 mg Documented By: PEREZ Hydroxyzine HCl (Hydroxyzine Hcl 25 Mg Tablet) 25 mg PO TID PRN PRN Reason: Anxiety Last Admin: 08/23/24 19:41 Dose: 25 mg Documented By: ANDREA Piperacillin Sod/Tazobactam (Sod 3.375 gm/ Sodium Chloride) 50 mls @ 100 mls/hr IV Q6H [facility] Last Admin: 08/25/24 07:47 Dose: 100 mls/hr Documented By: PEREZ Magnesium Hydroxide (Milk Of Magnesia 30 Ml Oral.Susp) 30 ml PO DAILY PRN PRN Reason: Constipation Melatonin (Melatonin 3 Mg Tablet) 6 mg PO BEDTIME PRN PRN Reason: Insomnia Naloxone HCl (Naloxone Hcl 0.4 Mg/Ml Vial) 0.04 mg IVPUSH Q5M PRN PRN Reason: Excessive sedation or RR < 8 Ondansetron HCl (Ondansetron Hcl 4 Mg/2 Ml Vial) 4 mg IVPUSH Q8H PRN PRN Reason: Nausea and Vomiting Last Admin: 08/24/24 16:10 Dose: 4 mg Documented By: BECCA Oxycodone HCl (Oxycodone Hcl Immed Release 5 Mg Tablet) 5 mg PO Q4H PRN PRN Reason: Pain, Mild (Pain Scale 1-3) Last Admin: 08/21/24 17:08 Dose: 5 mg Documented By: GIN Oxycodone HCl (Oxycodone Hcl Immed Release 5 Mg Tablet) 10 mg PO Q4H PRN PRN Reason: Pain, Moderate(Pain Scale 4-6) Last Admin: 08/25/24 05:12 Dose: 10 mg Documented By: ANDREA Pharmacy Consult (Consult Rx Etoh Phenob Im/Po) 1 each MISCELLANE ONCE PRN; Protocol PRN Reason: Consult order Phenobarbital (Phenobarbital 30 Mg Tablet) 30 mg PO DAILY [facility]; Protocol Stop: 08/25/24 09:01 Last Admin: 08/25/24 07:55 Dose: 30 mg Documented By: PEREZ Prazosin HCl (Prazosin Hcl 1 Mg Capsule) 4 mg PO BEDTIME [facility]; Protocol Last Admin: 08/24/24 20:58 Dose: 4 mg Documented By: ANDREA Sodium Chloride (0.9 % Sodium Chloride Flush 3 Ml Syringe) 3 ml IVFLUSH QSHIFT [facility] Last Admin: 08/25/24 07:55 Dose: 3 ml Documented By: PEREZ Topiramate (Topiramate 25 Mg Tablet) 12.5 mg PO DAILY [facility] Last Admin: 08/25/24 07:54 Dose: 12.5 mg Documented By: PEREZ Zolpidem Tartrate (Zolpidem Tartrate 5 Mg Tablet) 5 mg PO BEDTIME PRN PRN Reason: Insomnia Last Admin: 08/24/24 22:28 Dose: 5 mg Documented By: ANDREA Labs 08/18/24 18:09 08/24/24 07:58 Labs: Laboratory Results - last 24 hr 08/24/24 07:58 Anion Gap 8 L Estim Creat Clear Calc 101.5 Estimated GFR > 60 Random Glucose 123 H Calcium 8.5 D Total Bilirubin 0.4 AST 37 H ALT 62 H Alkaline Phosphatase 165 H Total Protein 5.8 L Albumin 3.2 L Procedures Date of Service Date of Service: 08/25/24 Progress Note: A&P Assessment and plan (1) Status post laparoscopic cholecystectomy: Status: Acute Assessment and Plan: Clinically doing well LFTs have normalized MRCP report still pending Plan to DC JALIL drain wants MRCP report is back Time Spent With Patient Time: Total time managing care of this patient today ____ minutes. Quality Stroke Does the patient have a stroke diagnosis?: No VTE Prior VTE?: No VTE Risk Level:: Medical - moderate - high VTE Device Contraindication: Treatment Not Indicated VTE Drug Contraindication: N/A - Med Ordered
[2024-08-25 09:31] LABS: Alanine Aminotransferase 47 U/L (0-31); Albumin Level 3.2 g/dL (3.5-5.0); Alkaline Phosphatase 151 U/L (39-117); Anion Gap 12 (12-20); Aspartate Amino Transferase 26 U/L (5-31); Bilirubin Total 0.3 mg/dL (0.0-1.0); Blood Urea Nitrogen 4 mg/dL (9-16); Calcium 8.7 mg/dL (8.4-10.2); Carbon Dioxide 23 mmol/L (22-29); Chloride 107 mmol/L (96-108); Creatinine Clr Calc Pharmacy 99.8; Estimated Glomerular Filt Rate > 60; Glucose Random 131 mg/dL (60-115); Potassium 3.5 mmol/L (3.3-5.1); Sodium 138 mmol/L (135-145)
[2024-08-25] MEDS: Thiamine HCL 100 MG in 0.9 % Sodium Chloride 100 ML 202 MG IV (10:39)
[2024-08-25] MEDS: ondansetron HCL 4 MG/2 ML VIAL IVPUSH (10:39)
--- NOTE | 2024-08-25 10:58 | P.PNIM_ITS ---
Subjective Subjective Date of Service: 08/25/24 Interval History: abd pain Review of Systems Abdominal pain is somewhat improving but says still has significant pain No nausea or vomiting or fever. Physical Exam 2 Vital Signs: Vital Signs: Last Vital Signs Temp 96.8 F 08/25/24 07:26 Pulse 78 08/25/24 07:26 Resp 16 08/25/24 07:26 BP 109/69 08/25/24 07:26 Pulse Ox 92 08/25/24 07:26 O2 Del Method Room Air 08/25/24 07:26 O2 Flow Rate 2 08/20/24 16:07 BMI result Body Mass Index 25.9 General: AO X 3, no acute distress heent: normal sclera, normal eye movements Resp: CTA bilateral. CVS: S1,S2,RRR. GI: +BS, NT, no distention, epigastric tenderness similar Skin: No rash Neuro: motor grossly intact Psych: appropriate affect Objective Data Active Medications Acetaminophen (Acetaminophen 325 Mg Tablet) 650 mg PO Q6H PRN PRN Reason: Pain, Moderate(Pain Scale 4-6) Last Admin: 08/25/24 07:45 Dose: 650 mg Documented By: PEREZ Buprenorphine/Naloxone (Buprenorphine/Naloxone 8/2 Mg Film) 1 film SUBLINGUAL TID [facility] Last Admin: 08/25/24 07:55 Dose: 1 film Documented By: PEREZ Buspirone HCl (Buspirone Hcl 5 Mg Tablet) 7.5 mg PO TID [facility] Last Admin: 08/25/24 07:54 Dose: 7.5 mg Documented By: PEREZ Calcium Carbonate (Calcium Carbonate 750 Mg Tab.Chew) 750 mg PO Q4H PRN PRN Reason: Heartburn Enoxaparin Sodium (Enoxaparin Sodium 40 Mg/0.4 Ml Syringe) 40 mg SUBCUT DAILY [facility] Last Admin: 08/25/24 07:55 Dose: 40 mg Documented By: PEREZ Fluoxetine HCl (Fluoxetine Hcl 20 Mg Capsule) 40 mg PO DAILY [facility] Last Admin: 08/25/24 07:55 Dose: 40 mg Documented By: PEREZ Gabapentin (Gabapentin 400 Mg Capsule) 400 mg PO TID [facility] Last Admin: 08/25/24 07:54 Dose: 400 mg Documented By: PEREZ Hydromorphone HCl (Hydromorphone Hcl 1 Mg/Ml Syringe) 1 mg IVPUSH Q4H PRN; Protocol PRN Reason: Pain, Severe (Pain Scale 7-10) Last Admin: 08/25/24 07:45 Dose: 1 mg Documented By: PEREZ Hydroxyzine HCl (Hydroxyzine Hcl 25 Mg Tablet) 25 mg PO TID PRN PRN Reason: Anxiety Last Admin: 08/23/24 19:41 Dose: 25 mg Documented By: ANDREA Piperacillin Sod/Tazobactam (Sod 3.375 gm/ Sodium Chloride) 50 mls @ 100 mls/hr IV Q6H [facility] Last Infusion: 08/25/24 08:26 Dose: Infused Documented By: PEREZ Thiamine HCl 100 mg/ Sodium (Chloride) 101 mls @ 202 mls/hr IV DAILY [facility] Last Admin: 08/25/24 10:39 Dose: 202 mls/hr Documented By: PEREZ Folic Acid 1 mg/ Sodium (Chloride) 50.2 mls @ 100.4 mls/hr IV DAILY [facility] Lactated Ringer's (Lr) 1,000 mls @ 100 mls/hr IVCONT .Q10H [facility] Magnesium Hydroxide (Milk Of Magnesia 30 Ml Oral.Susp) 30 ml PO DAILY PRN PRN Reason: Constipation Melatonin (Melatonin 3 Mg Tablet) 6 mg PO BEDTIME PRN PRN Reason: Insomnia Naloxone HCl (Naloxone Hcl 0.4 Mg/Ml Vial) 0.04 mg IVPUSH Q5M PRN PRN Reason: Excessive sedation or RR < 8 Ondansetron HCl (Ondansetron Hcl 4 Mg/2 Ml Vial) 4 mg IVPUSH Q8H PRN PRN Reason: Nausea and Vomiting Last Admin: 08/25/24 10:39 Dose: 4 mg Documented By: PEREZ Oxycodone HCl (Oxycodone Hcl Immed Release 5 Mg Tablet) 5 mg PO Q4H PRN PRN Reason: Pain, Mild (Pain Scale 1-3) Last Admin: 08/21/24 17:08 Dose: 5 mg Documented By: GIN Oxycodone HCl (Oxycodone Hcl Immed Release 5 Mg Tablet) 10 mg PO Q4H PRN PRN Reason: Pain, Moderate(Pain Scale 4-6) Last Admin: 08/25/24 10:39 Dose: 10 mg Documented By: PEREZ Pharmacy Consult (Consult Rx Etoh Phenob Im/Po) 1 each MISCELLANE ONCE PRN; Protocol PRN Reason: Consult order Prazosin HCl (Prazosin Hcl 1 Mg Capsule) 4 mg PO BEDTIME [facility]; Protocol Last Admin: 08/24/24 20:58 Dose: 4 mg Documented By: ANDREA Sodium Chloride (0.9 % Sodium Chloride Flush 3 Ml Syringe) 3 ml IVFLUSH QSHIFT [facility] Last Admin: 08/25/24 07:55 Dose: 3 ml Documented By: PEREZ Topiramate (Topiramate 25 Mg Tablet) 12.5 mg PO DAILY [facility] Last Admin: 08/25/24 07:54 Dose: 12.5 mg Documented By: PEREZ Zolpidem Tartrate (Zolpidem Tartrate 5 Mg Tablet) 5 mg PO BEDTIME PRN PRN Reason: Insomnia Last Admin: 08/24/24 22:28 Dose: 5 mg Documented By: ANDREA Labs 08/18/24 18:09 08/25/24 08:42 Labs: Laboratory Results - last 24 hr 08/25/24 08:42 Anion Gap 12 Estim Creat Clear Calc 99.8 Estimated GFR > 60 Random Glucose 131 H Calcium 8.7 Total Bilirubin 0.3 AST 26 ALT 47 H Alkaline Phosphatase 151 H Total Protein 6.0 L Albumin 3.2 L Assessment and Plan (1) Biliary disease: Status: Acute (2) Abdominal pain: Status: Acute Plan 49-year-old female with a past medical history significant for abdominal pain, alcohol dependence here with abdominal pain, suspect acute recurrent pancreatitis despite normal lipase and no ct finging of acute pancreatitis, Abdominal pain--DDx Gallblader disease, vs acute pancreatitis. HIDA scan for dilated gallbladder and +positive davis: hida scan -possible acute cholecystitis plan: s/p lap bartolo MRCP shows possible acute pancreatitis IV fluid, clear liquid diet, IV pain medication, monitor clinically. GI follow-up eleavted lft's :improving,likely post surgery , also has hepatic steatosis repeated improving hepatits serlogies for a,c -negative,HBsab positive d/w surgery-rec to ask Gi follow up for elevated lft's MRCP does not show choledocholithiasis, shows acute pancreatitis instead . Alcohol dependence and risk of withdrawal -CIWA protocol,folic and thiamine supplement. OUD--suboxone Depression--resume meds once home meds verified DVT prophylaxis: Lovenox ongoing need for hospitlisation:abd pain -? Gallblader disease, vs acute pancreatitis- need iv hydration,pain meds ,lft's monitering . MRCP-pending results called for reporting back. Quality Stroke Does the patient have a stroke diagnosis?: No VTE Prior VTE?: No VTE Risk Level:: Medical - moderate - high VTE Device Contraindication: Treatment Not Indicated VTE Drug Contraindication: N/A - Med Ordered
[2024-08-25] MEDS: Folic Acid 1 MG in 0.9 % Sodium Chloride 50 ML 100.4 MG IV (11:08)
[2024-08-25 11:52] VITALS: BP 95/50; PULSE 76; RESP 16; TEMP 36.7; O2SAT 99
[2024-08-25] MEDS: Lactated Ringers 1,000 ML 100 ML IVCONT ×2 (12:09→22:02)
--- NOTE | 2024-08-25 13:11 | MHC.CM.PN ---
PT TO HAVE MRCP PER ROUNDS PT NOT READY FOR DC
[2024-08-25 15:05] VITALS: BP 117/65; PULSE 79; RESP 20; TEMP 36.4; O2SAT 98
[2024-08-25 19:18] VITALS: BP 117/69; PULSE 77; RESP 20; TEMP 36.3; O2SAT 98
[2024-08-25] MEDS: Butalb/Acetamin/Caff 50/325/40 TABLET 1 TAB PO (20:08)
[2024-08-25] MEDS: Prazosin HCL 1 MG CAPSULE 4 MG PO (20:36)
[2024-08-25] MEDS: Zolpidem Tartrate 5 MG TABLET PO (22:01)
[2024-08-25 23:23] VITALS: BP 103/70; PULSE 92; RESP 18; TEMP 36.3; O2SAT 99
[2024-08-26] MEDS: Piperacillin Sodium/Tazobactam 3.375 GM in 0.9 % Sodium Chloride 50 ML IV ×2 (02:07→08:06)
[2024-08-26 03:22] VITALS: BP 97/55; PULSE 75; RESP 18; TEMP 37.1; O2SAT 98
[2024-08-26] MEDS: oxyCODONE HCl Immed Release 5 MG TABLET 10 MG PO ×5 (03:36→21:01)
[2024-08-26] MEDS: Butalb/Acetamin/Caff 50/325/40 TABLET 1 TAB PO ×3 (03:36→21:00)
--- NOTE | 2024-08-26 06:18 | PC.NURSE ---
Pt refused AM labs
[2024-08-26 07:19] VITALS: BP 109/60; PULSE 75; RESP 18; TEMP 36.1; O2SAT 97
[2024-08-26] MEDS: Lactated Ringers 1,000 ML 100 ML IVCONT (08:06)
[2024-08-26] MEDS: 0.9 % Sodium Chloride Flush 3 ML SYRINGE IVFLUSH ×3 (08:07→21:01)
[2024-08-26] MEDS: Gabapentin 400 MG CAPSULE PO ×3 (08:07→21:01)
[2024-08-26] MEDS: busPIRone HCl 5 MG TABLET 7.5 MG PO ×3 (08:07→21:00)
[2024-08-26] MEDS: Topiramate 25 MG TABLET 12.5 MG PO (08:08)
[2024-08-26] MEDS: FLUoxetine HCl 20 MG CAPSULE 40 MG PO (08:08)
[2024-08-26] MEDS: Buprenorphine/Naloxone 8/2 mg FILM 1 FILM SUBLINGUAL ×3 (08:09→20:59)
[2024-08-26] MEDS: Enoxaparin Sodium 40 MG/0.4 ML SYRINGE SUBCUT (08:09)
[2024-08-26] MEDS: Thiamine HCL 100 MG in 0.9 % Sodium Chloride 100 ML 202 MG IV (08:45)
[2024-08-26] MEDS: Folic Acid 1 MG in 0.9 % Sodium Chloride 50 ML 100.4 MG IV (09:46)
[2024-08-26 12:00] VITALS: BP 118/65; PULSE 91; RESP 16; TEMP 36.2; O2SAT 98
[2024-08-26 13:22] LABS: Hematocrit 27.7 % (37.0-47.0); Hemoglobin 9.3 g/dl (12.0-16.0); Mean Corpuscular HGB Conc 33.6 g/dl (31.0-35.0); Mean Corpuscular Hemoglobin 26.3 pg (27.0-33.0); Mean Corpuscular Volume 78.5 fL (80.0-98.0); Platelet Count 260 X10*3/uL (160-400); Red Blood Count 3.53 X10*6/uL (4.20-5.50); Red Cell Distribution Width 15.2 % (11.0-16.0); White Blood Count 5.5 X10*3/uL (4.8-10.8)
--- NOTE | 2024-08-26 13:38 | P.PNIM_ITS ---
Subjective Subjective Date of Service: 08/26/24 Interval History: Seen and examined this morning Abdominal pain improving Requesting to have diet advanced. No nausea, vomiting Review of Systems Review of Systems: Yes all other systems are reviewed and are negative Constitutional Constitutional: Denies chills and Denies fever(s) Cardiovascular Cardiovascular: Denies chest pain and Denies dyspnea Respiratory Respiratory: Denies dyspnea Gastrointestinal Gastrointestinal: Denies nausea and Denies vomiting Physical Exam 2 Vital Signs: Vital Signs: Last Vital Signs Temp 97.1 F 08/26/24 12:00 Pulse 91 08/26/24 12:00 Resp 16 08/26/24 12:00 BP 118/65 08/26/24 12:00 Pulse Ox 98 08/26/24 12:00 O2 Del Method Room Air 08/26/24 12:00 O2 Flow Rate 2 08/20/24 16:07 BMI result Body Mass Index 25.9 Const: General: cooperative, comfortable, alert and awake Nutritional Appearance: average body habitus Orientation/consciousness: patient oriented x3 Resp: Effort & Inspection: normal respiratory effort, able to speak in complete sentences, no respiratory distress and no use of accessory muscles A uscultation: clear to auscultation bilaterally Cardio: Rate: regular rate GI: Other: abdominal incisions c/d; mild cruz-incisional tenderness to palpation Inspection: No distended Palpation (GI): Soft to palpation Neuro: General: patient oriented x3, moves all extremities and CN's II-XI intact bilaterally Objective Data Active Medications Acetaminophen (Acetaminophen 325 Mg Tablet) 650 mg PO Q6H PRN PRN Reason: Pain, Moderate(Pain Scale 4-6) Last Admin: 08/25/24 07:45 Dose: 650 mg Documented By: PEREZ Acetaminophen/Butalbital/Caffeine (Butalb/Acetamin/Caff 50/325/40 Tablet) 1 tab PO Q4H PRN PRN Reason: Migraine Headache Last Admin: 08/26/24 03:36 Dose: 1 tab Documented By: MATT Buprenorphine/Naloxone (Buprenorphine/Naloxone 8/2 Mg Film) 1 film SUBLINGUAL TID [facility] Last Admin: 08/26/24 08:09 Dose: 1 film Documented By: ALMA Buspirone HCl (Buspirone Hcl 5 Mg Tablet) 7.5 mg PO TID [facility] Last Admin: 08/26/24 08:07 Dose: 7.5 mg Documented By: ALMA Calcium Carbonate (Calcium Carbonate 750 Mg Tab.Chew) 750 mg PO Q4H PRN PRN Reason: Heartburn Enoxaparin Sodium (Enoxaparin Sodium 40 Mg/0.4 Ml Syringe) 40 mg SUBCUT DAILY [facility] Last Admin: 08/26/24 08:09 Dose: 40 mg Documented By: ALMA Fluoxetine HCl (Fluoxetine Hcl 20 Mg Capsule) 40 mg PO DAILY [facility] Last Admin: 08/26/24 08:08 Dose: 40 mg Documented By: ALMA Gabapentin (Gabapentin 400 Mg Capsule) 400 mg PO TID [facility] Last Admin: 08/26/24 08:07 Dose: 400 mg Documented By: ALMA Hydroxyzine HCl (Hydroxyzine Hcl 25 Mg Tablet) 25 mg PO TID PRN PRN Reason: Anxiety Last Admin: 08/23/24 19:41 Dose: 25 mg Documented By: ANDREA Magnesium Hydroxide (Milk Of Magnesia 30 Ml Oral.Susp) 30 ml PO DAILY PRN PRN Reason: Constipation Melatonin (Melatonin 3 Mg Tablet) 6 mg PO BEDTIME PRN PRN Reason: Insomnia Naloxone HCl (Naloxone Hcl 0.4 Mg/Ml Vial) 0.04 mg IVPUSH Q5M PRN PRN Reason: Excessive sedation or RR < 8 Ondansetron HCl (Ondansetron Hcl 4 Mg/2 Ml Vial) 4 mg IVPUSH Q8H PRN PRN Reason: Nausea and Vomiting Last Admin: 08/25/24 10:39 Dose: 4 mg Documented By: PEREZ Oxycodone HCl (Oxycodone Hcl Immed Release 5 Mg Tablet) 10 mg PO Q4H PRN PRN Reason: Pain, Moderate(Pain Scale 4-6) Last Admin: 08/26/24 12:34 Dose: 10 mg Documented By: ALMA Pharmacy Consult (Consult Rx Etoh Phenob Im/Po) 1 each MISCELLANE ONCE PRN; Protocol PRN Reason: Consult order Prazosin HCl (Prazosin Hcl 1 Mg Capsule) 4 mg PO BEDTIME [facility]; Protocol Last Admin: 08/25/24 20:36 Dose: 4 mg Documented By: MATT Sodium Chloride (0.9 % Sodium Chloride Flush 3 Ml Syringe) 3 ml IVFLUSH QSHIFT [facility] Last Admin: 08/26/24 08:07 Dose: 3 ml Documented By: ALMA Topiramate (Topiramate 25 Mg Tablet) 12.5 mg PO DAILY [facility] Last Admin: 08/26/24 08:08 Dose: 12.5 mg Documented By: ALMA Zolpidem Tartrate (Zolpidem Tartrate 5 Mg Tablet) 5 mg PO BEDTIME PRN PRN Reason: Insomnia Last Admin: 08/25/24 22:01 Dose: 5 mg Documented By: MATT Labs 08/26/24 12:51 08/25/24 08:42 Labs: Laboratory Results - last 24 hr 08/26/24 12:51 MCV 78.5 L MCH 26.3 L MCHC 33.6 RDW 15.2 Plt Count 260 MPV 10.0 Absolute Nucleated RBC 0.000 Nucleated RBC % (auto) 0.0 Assessment and Plan (1) Status post laparoscopic cholecystectomy: Status: Acute Plan 49-year-old female with a past medical history significant for abdominal pain, alcohol dependence here with abdominal pain Abdominal pain Due to acute cholecystitis and acute pancreatitis Initial abdominal ultrasound from August 18 with concern for acalculous cholecystitis, HIDA scan positive for acute cholecystitis - underwent lap bartolo 08/20 due to persistently elevated LFTs MRI obtained 08/23 with acute pancreatitis Pain now improving, weaned off of IV narcotics, advance diet LFTs trending down elevated lft's likely post surgery and due to underlying steatosis/ history of ETOH Improving hepatits serlogies for a,c -negative,HBsab positive d/w surgery-rec to ask GI follow up for elevated lft's acute on chronic microcytic anemia no acute blood loss Above transfusion threshold Alcohol dependence and risk of withdrawal CIWA 0, no evidence of etoh withdrawal - now outside window for withdrawal, stop CIWA folic and thiamine supplement seen by addiction medicine team, not interested in follow up OUD continue baseline suboxone Depression continue baseline meds DVT prophylaxis: Lovenox Quality Stroke Does the patient have a stroke diagnosis?: No VTE Prior VTE?: No VTE Risk Level:: Medical - moderate - high VTE Device Contraindication: Treatment Not Indicated VTE Drug Contraindication: N/A - Med Ordered
[2024-08-26 13:40] LABS: Alanine Aminotransferase 42 U/L (0-31); Albumin Level 3.5 g/dL (3.5-5.0); Alkaline Phosphatase 146 U/L (39-117); Anion Gap 9 (12-20); Aspartate Amino Transferase 25 U/L (5-31); Bilirubin Total 0.2 mg/dL (0.0-1.0); Blood Urea Nitrogen < 3 mg/dL (9-16); Calcium 8.8 mg/dL (8.4-10.2); Carbon Dioxide 27 mmol/L (22-29); Chloride 108 mmol/L (96-108); Creatinine Clr Calc Pharmacy 99.8; Estimated Glomerular Filt Rate > 60; Glucose Random 94 mg/dL (60-115); Potassium 3.7 mmol/L (3.3-5.1); Sodium 140 mmol/L (135-145); Total Protein 6.6 g/dL (6.5-8.0)
[2024-08-26 14:04] LABS: Lipase 794 U/L (8-78)
[2024-08-26 15:34] VITALS: BP 122/66; PULSE 86; RESP 20; TEMP 36.5; O2SAT 99
[2024-08-26 19:39] VITALS: BP 140/71; PULSE 82; RESP 20; TEMP 36.3; O2SAT 99
[2024-08-26] MEDS: Prazosin HCL 1 MG CAPSULE 4 MG PO (20:59)
[2024-08-26 23:42] VITALS: BP 103/54; PULSE 79; RESP 18; TEMP 36.4; O2SAT 98
[2024-08-27] MEDS: oxyCODONE HCl Immed Release 5 MG TABLET 10 MG PO ×2 (05:20→09:42)
[2024-08-27] MEDS: Butalb/Acetamin/Caff 50/325/40 TABLET 1 TAB PO ×2 (05:20→09:41)
[2024-08-27 07:17] VITALS: BP 125/60; PULSE 79; RESP 16; TEMP 36.8; O2SAT 100
[2024-08-27] MEDS: Enoxaparin Sodium 40 MG/0.4 ML SYRINGE SUBCUT (08:11)
[2024-08-27] MEDS: busPIRone HCl 5 MG TABLET 7.5 MG PO (08:11)
[2024-08-27] MEDS: 0.9 % Sodium Chloride Flush 3 ML SYRINGE IVFLUSH (08:11)
[2024-08-27] MEDS: Gabapentin 400 MG CAPSULE PO (08:12)
[2024-08-27] MEDS: Folic Acid 1 MG TABLET PO (08:12)
[2024-08-27] MEDS: Topiramate 25 MG TABLET 12.5 MG PO (08:12)
[2024-08-27] MEDS: FLUoxetine HCl 20 MG CAPSULE 40 MG PO (08:12)
[2024-08-27] MEDS: Thiamine HCL 100 MG TABLET PO (08:13)
[2024-08-27] MEDS: Buprenorphine/Naloxone 8/2 mg FILM 1 FILM SUBLINGUAL (08:14)
--- NOTE | 2024-08-27 10:49 | P.DS_ITS ---
DS: Providers Provider Date of Service: 08/27/24 Date of admission: 08/19/24 02:19 Date of discharge: 08/27/24 Primary care physician: Mikki Kwan NP Consults: 08/19/24 01:21 Consult to General Surgery [place]ine [place] [facility] [place] [facility] Reason for consultation: abd pain, dilated gallbladder, +barragan 08/20/24 09:06 Addiction Medicine Routine Consulting Provider: Addiction Covering Reason for consultation: daily etoh 08/22/24 11:34 Consult to Gastroenterology [place]ine [place]ing [place] [facility] [place] [facility] Reason for consultation: elevated lft post lap bartolo ,?cbd stone Has provider been notified: No Attending physician on discharge: Francisco Thomas Discharging clinician: Krupa Vargas DS: Diagnosis Discharge Diagnosis (1) Status post laparoscopic cholecystectomy: Status: Acute DS: Summary Hospital Course Hospital Course: From H&P on the day of admission Ms. Ramos is a 49-year-old female with a past medical history significant for abdominal pain, alcohol dependence, bilateral carpal tunnel syndrome, cocaine abuse, hidradenitis, non-ST elevation myocardial infarction (NSTEMI), hypercholesterolemia, impaired fasting glucose, major depression, menorrhagia (status post-hysterectomy), microcytic anemia, deep vein thrombosis (DVT) following knee surgery, and GERD. She presents with severe epigastric abdominal pain for the past four days, described as non-radiating and reminiscent of her previous episodes of pancreatitis. However, her lipase level is normal, and a CT scan of the abdomen does not reveal pancreatitis but shows a dilated gallbladder. Ultrasound findings are consistent with gallbladder dilation and a positive Barragan?s sign. She is afebrile, with a normal white blood cell count, has no nausea or vomiting. Pain control has been partially achieved with dilaudid and morphine. The emergency department consulted surgery (Dr. Browne), and a HIDA scan has been recommended for further evaluation. Abdominal pain Due to acute cholecystitis and acute pancreatitis Initial abdominal ultrasound from August 18 with concern for acalculous cholecystitis, HIDA scan positive for acute cholecystitis - seen by general surgery and underwent lap bartolo 08/20 due to persistently elevated LFTs MRI obtained 08/23 showing acute pancreatitis. Abdominal Pain now improving, weaned off of IV narcotics, and she is tolerating a regular diet. LFTs trending down. elevated lft's likely post surgery and due to underlying steatosis/ history of ETOH hepatits serlogies for a,c negative. HBsab positive acute on chronic microcytic anemia no acute blood loss Above transfusion threshold Alcohol dependence and risk of withdrawal Was initially monitored on the CIWA scale, no evidence of active alcohol withdrawal. She was supplemented with thiamine and folic acid. seen by addiction medicine team, not interested in follow up at this time OUD continued on baseline suboxone Time Attestation Discharge Coordination Time (in mins): 40 Quality: Safe Use of Opioids Does Pt have an Active Cancer Diagnosis on the Problem List?: No Quality: Stroke Does the patient have a stroke diagnosis?: No Physical Exam Vital Signs: Vital Signs: Last Vital Signs Temp 98.3 F 08/27/24 07:17 Pulse 79 08/27/24 07:17 Resp 16 08/27/24 07:17 BP 125/60 08/27/24 07:17 Pulse Ox 100 08/27/24 07:17 O2 Del Method Room Air 08/27/24 07:17 O2 Flow Rate 2 08/20/24 16:07 BMI result Body Mass Index 25.9 Const: General: cooperative, comfortable, alert and awake Nutritional Ap pearance: average body habitus Orientation/consciousness: patient oriented x3 Resp: Effort & Inspection: normal respiratory effort, able to speak in complete sentences, no respiratory distress and no use of accessory muscles Auscultation: clear to auscultation bilaterally Cardio: Rate: regular rate GI: Other: abdominal incisions c/d; mild cruz-incisional tenderness to palpation Inspection: No distended Palpation (GI): Soft to palpation Neuro: General: patient oriented x3, moves all extremities and CN's II-XI intact bilaterally DS: Data Data Completed and Pending Completed studies during hospitalization [Text1]: Pending at discharge 08/20/24 14:36 Surgical [PTH] Routine Procedures Detoxification Services for Substance Abuse Treatment (06/08/24) Labs on day of discharge: Laboratory Results - last 24 hr 08/26/24 12:51 WBC 5.5 RBC 3.53 L Hgb 9.3 L Hct 27.7 L MCV 78.5 L MCH 26.3 L MCHC 33.6 RDW 15.2 Plt Count 260 MPV 10.0 Absolute Nucleated RBC 0.000 Nucleated RBC % (auto) 0.0 Sodium 140 Potassium 3.7 Chloride 108 Carbon Dioxide 27 Anion Gap 9 L BUN < 3 L Creatinine 0.60 Estim Creat Clear Calc 99.8 Estimated GFR > 60 Random Glucose 94 Calcium 8.8 Total Bilirubin 0.2 AST 25 ALT 42 H Alkaline Phosphatase 146 H Total Protein 6.6 Albumin 3.5 Lipase 794 H Discharge Plan Discharge Anticipated Discharge Date/Time: 08/27/24 10:53 Patient Disposition: Home, Self-Care Discharge Diagnosis: acute cholecystitis Acute pancreatitis Referrals: Mikki Kwan NP [Primary Care Provider] - 1 Week Kirit Downs MD [Physician] - 1 Week Discharge Medications: New folic acid 1 mg Tablet 1 mg PO DAILY 90 Days Qty: 90 0RF thiamine mononitrate (vit B1) 100 mg Tablet 100 mg PO DAILY 90 Days Qty: 90 0RF oxycodone 5 mg tablet 5 mg PO Q8H PRN (Reason: severe pain (scale score 7-10)) Qty: 9 0RF Rx Instructions: Partial Fill upon patient request. Continued fluoxetine 40 mg capsule 40 mg PO DAILY gabapentin 400 mg capsule 400 mg PO TID buspirone 7.5 mg tablet 7.5 mg PO TID zolpidem 5 mg tablet 5 mg PO BEDTIME hydroxyzine pamoate 25 mg capsule 25 - 50 mg PO TID PRN (Reason: Anxiety) buprenorphine-naloxone [Suboxone] 8-2 mg film 1 film sublingual TID topiramate 25 mg tablet 12.5 mg PO DAILY Rx Instructions: DOSE TITRATION Excedrin Extra Strength 250-250-65 mg Tablet 2 tab PO Q6H PRN (Reason: Headache) prazosin 2 mg capsule 4 mg PO BEDTIME Discharge Orders: Discharge Order (Routine); Ordered 08/27/24 Ordered By: Krupa Vargas Diet: Low fat, low cholesterol Activity on Discharge: As tolerated Stand Alone Forms: Patient Portal Discharge page Print Language: Malay Activity Restrictions/Additional Instructions: Ok to shower. You have steri strips (small white cloth strips) covering your incision- these will fall off ~1 week. Follow up in office with Dr. Downs in 2 weeks. ([phone]) No heavy lifting (>10-20lbs) or strenuous activity! Call Your Doctor If: -Your temperature exceeds 101.5? F -You experience excessive pain or swelling -You have an unexpected reaction to medication -You have excessive bleeding -You experience continued vomiting/nausea -Your incision begins to separate -Your incision shows signs of infection such as increased redness, swelling, excessive pain, drainage (light blood or clear fluid is normal) or heat Care Plan Goals: see below Health Concerns: Acute cholecystitis Acute pancreatitis Plan of Treatment: Postsurgical instructions as above Call to schedule follow-up appointment with General surgery as above Avoid alcohol use Recommend low-fat diet call to schedule follow up appointment with pcp Assessment: see discharge summary
--- NOTE | 2024-08-27 13:38 | MHC.CM.PN ---
PT DISCHARGED HOME TODAY WITH NO SERVICES [facility] [place]
== END 2024-08-27 12:50 | disposition home or self-care (01) | DRG 263 ==
LOC: HO.ED 18:09 → HO.EDOVER 08-19 02:26 → HO.S3 08-20 07:27
PROVIDERS: Internal Medicine; Physician Assistant Medical; Surgery; Admitting Provider Internal Medicine; Emergency Provider Emergency Medicine; PCP Nurse Practitioner Family; Visit Provider Physician Assistant Medical
PROC: 0FT44ZZ Resection of Gallbladder, Percutaneous Endoscopic Approach (ICD-10-PCS; CPT 47562; principal; 2024-08-20 13:00)
DX: K81.0 Acute cholecystitis (principal); K85.90 Acute pancreatitis without necrosis or infection, unspecified; K76.0 Fatty (change of) liver, not elsewhere classified; F10.20 Alcohol dependence, uncomplicated; F11.20 Opioid dependence, uncomplicated; F32.A Depression, unspecified; D50.9 Iron deficiency anemia, unspecified; K81.1 Chronic cholecystitis; Y90.1 Blood alcohol level of 20-39 mg/100 ml; Z20.822 Contact with and (suspected) exposure to COVID-19; Z79.899 Other long term (current) drug therapy
CPT/HCPCS: 0241U; 36415; 74176; 74181; 76705; 78226; 80053; 80307; 81003; 82150; 82803; 83690; 83735; 84478; 84702; 85025; 85027; 86704; 86706; 86709; 86803; 87340; 88304; 99285; A9537; J0131; J0696; J1100; J1171; J1650; J2003; J2060; J2250; J2270; J2405; J2470; J2543; J2560; J2704; J3010; J3411; J3480; J7120

== ENCOUNTER 2024-08-19 02:19 | Outpatient (BNV) | payer OTHER, SELFPAY | END 2024-08-23 09:45 | PROVIDERS: Admitting Provider Internal Medicine; Emergency Provider Emergency Medicine; PCP Nurse Practitioner Family; Visit Provider Radiology Diagnostic Radiology | DX: R16.0 Hepatomegaly, not elsewhere classified (principal) | CPT/HCPCS: 74181 ==

== ENCOUNTER → 2024-08-19 02:19 | Outpatient (BNV) | payer OTHER, SELFPAY | PROVIDERS: Admitting Provider Internal Medicine; Emergency Provider Emergency Medicine; Visit Provider Internal Medicine | DX: Z90.49 Acquired absence of other specified parts of digestive tract (principal) | CPT/HCPCS: 99231; 99232; 99239; 99499 ==

== ENCOUNTER → 2024-08-19 02:19 | Outpatient (BNV) | payer OTHER, SELFPAY | PROVIDERS: Admitting Provider Internal Medicine; Emergency Provider Emergency Medicine; Visit Provider Surgery | DX: Z90.49 Acquired absence of other specified parts of digestive tract (principal) | CPT/HCPCS: 47562; 99024; 99223; 99499 ==

== ENCOUNTER 2024-10-17 14:39 | Emergency (ER) | payer OTHER, SELFPAY ==
--- NOTE | ~2024-10-17 | CT_ITS ---
CLINICAL HISTORY: Abdominal pain CT abdomen and pelvis without contrast Comparison: CT/MN/SR - CT ABDOMEN PELVIS WO IV CON - 08/18/24 19:12 EST Findings: The lung bases are clear. Gallbladder is absent. Spleen adrenal glands and pancreas are unremarkable. Kidneys are normal in size. There is a nonobstructing small stone in the left kidney. There is also a left 3 cm cyst. No hydronephrosis of either kidney. Liver is enlarged. Hepatic steatosis. No bowel obstruction, pneumoperitoneum, or pneumatosis. Appendix not visualized, suspected to be absent. Uterus is absent. Left ovary is unremarkable. Right ovary not well visualized. No acute fracture. IMPRESSION: No acute findings. No explanation for abdominal pain identified. This document has been electronically signed by: Travon Ramirez MD on 10/17/2024 23:53:05
[2024-10-17 15:14] VITALS: BP 141/74; PULSE 92; RESP 18; TEMP 36.7; O2SAT 99; BMI 24.4
--- NOTE | 2024-10-17 15:15 | ED_ITS ---
HPI - Abdominal Pain General Chief Complaint: Abdominal Pain Stated Complaint: Abd pain Time Seen by Provider: 10/17/24 22:07 Source: patient, RN notes reviewed and old records reviewed Mode of arrival: ambulatory Limitations: no limitations History of Present Illness ED Provider: Adia HPI narrative: 49-year-old female with past medical history significant for substance abuse, pancreatitis, status post cholecystectomy presents for evaluation abdominal pain. Patient reports generalized abdominal pain since yesterday. Her pain is severe, 10/10. She has associated nausea, vomiting. She also has diarrhea. Her diarrhea is described as nonbloody. Denies any recent travel or antibiotic use. She feels as though her pain is reminiscent of when she was pancreatitis in the past. She also reports a history of gastritis. The patient states she was drinking alcohol over the weekend prior to the onset of her pain Related Data Home Medications ?Medication ?Instructions ?Recorded ?Confirmed buprenorphine 8 mg-naloxone 2 mg 1 film sublingual TID 06/08/24 08/19/24 sublingual film (Suboxone) buspirone 7.5 mg tablet 7.5 mg PO TID 06/08/24 08/19/24 fluoxetine 40 mg capsule 40 mg PO DAILY 06/08/24 08/19/24 gabapentin 400 mg capsule 400 mg PO TID 06/08/24 08/19/24 hydroxyzine pamoate 25 mg capsule 25 - 50 mg PO TID PRN Anxiety 06/08/24 08/19/24 zolpidem 5 mg tablet 5 mg PO BEDTIME 06/08/24 08/19/24 nxrzewb-urnvvsbhhrchi-bwupcmpt 250 2 tab PO Q6H PRN Headache 08/19/24 08/19/24 mg-250 mg-65 mg tablet (Excedrin Extra Strength) prazosin 2 mg capsule 4 mg PO BEDTIME 08/19/24 08/19/24 topiramate 25 mg tablet 12.5 mg PO DAILY 08/19/24 08/19/24 Previous Rx's ?Medication ?Instructions ?Recorded folic acid 1 mg tablet 1 mg PO DAILY 90 days #90 tabs 08/27/24 oxycodone 5 mg tablet 5 mg PO Q8H PRN severe pain (scale 08/27/24 score 7-10) #9 tabs thiamine mononitrate (vit B1) 100 100 mg PO DAILY 90 days #90 tabs 08/27/24 mg tablet ondansetron 4 mg disintegrating 4 mg PO Q8H PRN nausea and 10/18/24 tablet vomiting #20 tabs Allergies Allergy/AdvReac Type Severity Reaction Status Date / Time ibuprofen [From Motrin] Allergy Rash Verified 10/17/24 15:15 Iodinated Contrast Media Allergy Anaphylaxis Verified 10/17/24 15:15 [Contrast Dye] Review of Systems Constitutional: Denies body ache(s), Denies chills, Denies fever(s) and Denies headache(s) Eyes: Denies blurry vision Denies vertigo and Denies headache(s) Cardiovascular: Denies chest pain and Denies dyspnea Respiratory: Denies cough and Denies dyspnea Gastrointestinal: Reports abdominal pain, Reports nausea and Reports vomiting Musculoskeletal: Denies back pain Skin/Breast: Denies rash Denies vertigo and Denies headache(s) [facility] Past Medical History Surgical History (Updated 09/04/24 @ 00:03 by Crystal Garrido) Status post laparoscopic cholecystectomy Social History Social History Household Members: Family Housing: Apartment Do you presently have visiting nurse or other home services: No Alcohol intake: current Alcohol intake frequency: 3 or more drinks per day Alcohol type: hard liquor Comment: pt keeps taking bed alarm off Patient Tobacco Use Status: Never used Tobacco Second Hand Smoke Exposure: No Substance Use Type: Marijuana Advance Directives: Yes Advance Directives on File: Yes Advance Directives Date on File: 06/14/24 Do you have a plan to hurt others: No Plan service: No Physical Exam ED Vital Signs: Vital Signs - 24 hr 10/17/24 15:14 10/17/24 19:24 10/17/24 22:15 Temperature 98.1 F 97.1 F 97.5 F Pulse Rate 92 93 92 Respiratory Rate 18 18 16 Blood Pressure 141/74 H 114/61 123/65 Pulse Oximetry 99 96 98 Oxygen Delivery Method Room Air Room Air Room Air BMI result Body Mass Index 24.4 Const General: healthy appearing, comfortable, no acute distress, alert and awake Nutritional Appearance: well nourished Orientation/consciousness: patient oriented x3 HENMT Head: Yes normocephalic and Yes atraumatic Eyes Eyelids: Yes eyelids normal Conjunctivae: conjunctivae normal Sclerae: sclerae normal Corneas: corneas normal Pupils: Equal, round and reactive pupils present EOM: EOMs intact bilaterally Neck Neck: Yes full ROM Resp Effort & Inspection: normal respiratory effort, able to speak in complete sentences and not labored GI Inspection: No distended Palpation (GI): Soft to palpation, not firm, Tenderness to palpation present (GI) (Diffuse abdominal tenderness without guarding), no guarding and not rigid Auscultation: normoactive bowel sounds Skin General skin exam: elasticity normal Neuro General: patient oriented x3 Cranial nerves: Yes Equal, round and reactive pupils present and Yes Bilaterally intact EOM present Cognition (Neuro): normal cognition Extrem Other: Moving all extremities well without any obvious deformities Course Course Course Narrative: This is a rapid medical exam. Deferred additional HPI, ROS< PE to primary provider. 49 yo female with a history of pancreatitis, alcohol dependence, CTS, cocaine abuse, hidradenitis, NSTEMI, HDL, MDD, menorrhagia (s/p hysterectomy), anemia, DVT, and GERD here with complaints of right sided abdominal pain radiating to back since last evening Will obtain labs, UA, EKG VSS -AAvi Boyd APRN Medical Decision Making Medical Decision Making [facility] Narrative: 49-year-old female with past medical history as documented above presents for evaluation of diffuse abdominal pain, she is diffusely tender without any focal tenderness. No rebound or guarding. No abdominal distention. Her labs are reviewed and quite reassuring. Her lipase is within normal limits. She was already status post cholecystectomy, so I doubt biliary disease. It is possible that she has a retained stone. Her pain is diffuse and less likely to be acute appendicitis. I suspect her pain is more likely related to enteritis or gastritis. Given her level of pain we will get a CT scan to better evaluate Differential Diagnosis Differential Diagnoses: The differential diagnosis associated with the presentation includes As above Lab Data [facility] Lab Attestation statement: I reviewed the patient's lab results. No leukocytosis or significant anemia. Normal platelet count. No electrolyte abnormalities. The patient's CO2 level is low at 18 and can be related to tachypnea. Renal function within normal limits, random glucose of 119 10/17/24 15:34 10/17/24 15:34 Labs: Lab Results 10/17/24 10/17/24 Range/Units 15:34 22:19 WBC 10.0 (4.8-10.8) X10*3/uL RBC 4.59 D (4.20-5.50) X10*6/uL Hgb 12.0 D (12.0-16.0) g/dl Hct 36.3 L D (37.0-47.0) % MCV 79.1 L (80.0-98.0) fL MCH 26.1 L (27.0-33.0) pg MCHC 33.1 (31.0-35.0) g/dl RDW 13.6 (11.0-16.0) % Plt Count 279 (160-400) X10*3/uL MPV 9.1 L (9.4-12.3) fL Immature Gran % (Auto) 0.3 (0.0-0.4) % Neut % (Auto) 75.9 H (45-73) % Lymph % (Auto) 18.4 L (20-40) % [place] % (Auto) 4.5 (2-11) % Eos % (Auto) 0.5 (0-4) % Baso % (Auto) 0.4 (0-2) % Lymph # (Auto) 1.9 (1.2-4.9) X10*3/uL [place] # (Auto) 0.5 (0.1-1.2) X10*3/uL Eos # (Auto) 0.1 (0.0-0.4) X10*3/uL Baso # (Auto) 0.0 (0.0-0.2) X10*3/uL Abs Immat Gran (auto) 0.03 (0.00-0.03) X10*3/uL Absolute Neuts (auto) 7.6 (2.0-8.3) x10*3/uL Absolute Nucleated RBC 0.000 (0.0-0.012) X10*3/uL Nucleated RBC % (auto) 0.0 (0.0-0.2) /100WBC Sodium 140 (135-145) mmol/L Potassium 3.8 (3.3-5.1) mmol/L Chloride 108 (96-108) mmol/L Carbon Dioxide 18 L (22-29) mmol/L Anion Gap 18 (12-20) BUN 11 (9-16) mg/dL Creatinine 0.80 (0.5-1.4) mg/dL Estim Creat Clear Calc 72.8 Estimated GFR > 60 Random Glucose 119 H (60-115) mg/dL Calcium 9.1 (8.4-10.2) mg/dL Total Bilirubin 0.4 (0.0-1.0) mg/dL Direct Bilirubin 0.2 (0.0-0.5) mg/dL AST 34 H (5-31) U/L ALT 27 (0-31) U/L Alkaline Phosphatase 150 H (39-117) U/L Troponin I High Sens < 2.7 (<3.5-17.0) ng/L Total Protein 8.5 H (6.5-8.0) g/dL Albumin 4.6 (3.5-5.0) g/dL Lipase 10 (8-78) U/L Beta HCG, Quant 3 mIU/mL Urine Color Yellow Urine Appearance Clear Urine pH 5.5 (5.0-9.0) Ur Specific [place] 1.020 (1.005-1.025) Urine Protein Trace (Neg-Trace) mg/dL Urine Glucose (UA) Negative (Negative) mg/dL Urine Ketones Negative (Negative) mg/dL Urine Blood Negative (Negative) Urine Nitrite Negative (Negative) Ur Leukocyte Esterase Moderate (2+) H (Negative) Urine RBC 0-2 (0-2) /HPF Urine WBC 6-10 H (0-5) /HPF Ur Squamous Epith Cells >20 (0-2) /HPF Urine Bacteria Trace (None Seen) Hyaline Casts 3-5 (0-2) /LPF Medications Administered Discontinued Medications Generic Name Dose Route Start Last Admin Trade Name Freq PRN Reason Stop Dose Admin Morphine Sulfate 4 mg 10/17/24 22:29 10/17/24 22:48 Morphine Sulfate 4 Mg/Ml Cartridge IVPUSH 10/17/24 22:30 4 mg ONCE ONE Administration Protocol Ondansetron HCl 4 mg 10/17/24 22:29 10/17/24 23:04 Ondansetron Hcl 4 Mg/2 Ml Vial IVPUSH 10/17/24 22:30 4 mg ONCE ONE Administration Pantoprazole Sodium 40 mg 10/17/24 22:29 10/17/24 22:59 Pantoprazole Sodium 40 Mg/10 Ml Vial IVPUSH 10/17/24 22:30 40 mg ONCE ONE Administration Discharge Plan Discharge Clinical Impression: Abdominal pain Patient Disposition: Home, Self-Care Instructions: Abdominal Pain (ED) Additional Instructions: Your workup in the ER today was reassuring. This includes your blood work, your CT scan. You do not have pancreatitis. You may use Zofran as needed for nausea and vomiting. Follow-up with your primary doctor, return for new or worsening symptoms Prescriptions: New ondansetron 4 mg tablet,disintegrating 4 mg PO Q8H PRN (Reason: nausea and vomiting) Qty: 20 0RF No Action fluoxetine 40 mg capsule 40 mg PO DAILY gabapentin 400 mg capsule 400 mg PO TID buspirone 7.5 mg tablet 7.5 mg PO TID zolpidem 5 mg tablet 5 mg PO BEDTIME hydroxyzine pamoate 25 mg capsule 25 - 50 mg PO TID PRN (Reason: Anxiety) buprenorphine-naloxone [Suboxone] 8-2 mg film 1 film sublingual TID topiramate 25 mg tablet 12.5 mg PO DAILY Rx Instructions: DOSE TITRATION Excedrin Extra Strength 250-250-65 mg Tablet 2 tab PO Q6H PRN (Reason: Headache) prazosin 2 mg capsule 4 mg PO BEDTIME folic acid 1 mg Tablet 1 mg PO DAILY 90 Days Qty: 90 0RF thiamine mononitrate (vit B1) 100 mg Tablet 100 mg PO DAILY 90 Days Qty: 90 0RF oxycodone 5 mg tablet 5 mg PO Q8H PRN (Reason: severe pain (scale score 7-10)) Qty: 9 0RF Rx Instructions: Partial Fill upon patient request. Print Language: Wallisian
--- NOTE | 2024-10-17 15:17 | ECG_ITS ---
Test Reason : UPPER ABD PAIN Blood Pressure : */* mmHG Vent. Rate : 89 BPM Atrial Rate : 89 BPM P-R Int : 144 ms QRS Dur : 76 ms QT Int : 362 ms P-R-T Axes : 63 -64 -7 degrees QTcB Int : 440 ms Normal sinus rhythm Left axis deviation Inferior infarct , age undetermined Abnormal ECG No previous ECGs available Referred By: Margie Boyd Electronically Signed By: RANDOLPH SNYDER
[2024-10-17 15:37] LABS: MANUAL DIFF FLAG NO
[2024-10-17 15:39] LABS: Basophils Percent Auto 0.4 % (0-2); Eosinophils Absolute Auto 0.1 X10*3/uL (0.0-0.4); Eosinophils Percent Auto 0.5 % (0-4); Hematocrit 36.3 % (37.0-47.0); Imm Gran Abs Auto 0.03 X10*3/uL (0.00-0.03); Imm Gran Pct Auto 0.3 % (0.0-0.4); Lymphocytes Absolute Auto 1.9 X10*3/uL (1.2-4.9); Lymphocytes Percent Auto 18.4 % (20-40); Mean Corpuscular HGB Conc 33.1 g/dl (31.0-35.0); Mean Corpuscular Hemoglobin 26.1 pg (27.0-33.0); Mean Corpuscular Volume 79.1 fL (80.0-98.0); Mean Platelet Volume 9.1 fL (9.4-12.3); Monocytes Absolute Auto 0.5 X10*3/uL (0.1-1.2); Monocytes Percent Auto 4.5 % (2-11); Neutrophils Absolute Auto 7.6 x10*3/uL (2.0-8.3); Neutrophils Percent Auto 75.9 % (45-73); Platelet Count 279 X10*3/uL (160-400); Red Blood Count 4.59 X10*6/uL (4.20-5.50); Red Cell Distribution Width 13.6 % (11.0-16.0)
[2024-10-17 15:52] LABS: Alanine Aminotransferase 27 U/L (0-31); Albumin Level 4.6 g/dL (3.5-5.0); Alkaline Phosphatase 150 U/L (39-117); Anion Gap 18 (12-20); Aspartate Amino Transferase 34 U/L (5-31); Bilirubin Direct 0.2 mg/dL (0.0-0.5); Bilirubin Total 0.4 mg/dL (0.0-1.0); Blood Urea Nitrogen 11 mg/dL (9-16); Calcium 9.1 mg/dL (8.4-10.2); Carbon Dioxide 18 mmol/L (22-29); Chloride 108 mmol/L (96-108); Creatinine Clr Calc Pharmacy 72.8; Estimated Glomerular Filt Rate > 60; Glucose Random 119 mg/dL (60-115); Lipase 10 U/L (8-78); Potassium 3.8 mmol/L (3.3-5.1); Sodium 140 mmol/L (135-145); Total Protein 8.5 g/dL (6.5-8.0)
[2024-10-17 15:59] LABS: Troponin-I High Sensitivity < 2.7 ng/L (<3.5-17.0)
[2024-10-17 19:24] VITALS: BP 114/61; PULSE 93; RESP 18; TEMP 36.2; O2SAT 96
[2024-10-17 22:15] VITALS: BP 123/65; PULSE 92; RESP 16; TEMP 36.4; O2SAT 98
[2024-10-17 22:28] LABS: Appearance Urine Clear; Color Urine Yellow; Glucose Urine UA Negative (Negative); Leukocyte Esterase Urine Moderate (2+) (Negative); Nitrite Urine Negative (Negative); PH 5.5 (5.0-9.0); UMIC TRIGGER UACC YES; Urine Blood Negative (Negative); Urine Ketones Negative (Negative); Urine Protein Trace mg/dL (Neg-Trace)
[2024-10-17 22:37] LABS: Bacteria Urine Trace (None Seen); RBC Urine 0-2 /HPF (0-2); Squamous Epithelial Cell Urine >20 /HPF (0-2); UACC Culture Trigger YES
[2024-10-17] MEDS: Morphine Sulfate 4 MG/ML CARTRIDGE IVPUSH (22:48)
[2024-10-17] MEDS: Pantoprazole Sodium 40 MG/10 ML VIAL IVPUSH (22:59)
[2024-10-17] MEDS: ondansetron HCL 4 MG/2 ML VIAL IVPUSH (23:04)
[2024-10-17 23:07] LABS: HCG Quantitative 3 mIU/mL
[2024-10-18] MEDS: ondansetron HCL 4 MG/2 ML VIAL IVPUSH (00:30)
[2024-10-18 00:37] VITALS: BP 123/65; PULSE 92; RESP 16; TEMP 36.4; O2SAT 98
--- NOTE | 2024-10-18 00:37 | PC.NURSE ---
condition improved, no vomiting. mental status at baseline. gait steady.
== END 2024-10-18 00:42 | disposition home or self-care (01) ==
PROVIDERS: Nurse Practitioner Family; Emergency Provider Emergency Medicine Emergency Medical Services; PCP Nurse Practitioner Family
DX: R10.2 Pelvic and perineal pain (principal); R11.2 Nausea with vomiting, unspecified; R19.7 Diarrhea, unspecified; R94.31 Abnormal electrocardiogram [ECG] [EKG]; Z79.899 Other long term (current) drug therapy
CPT/HCPCS: 36415; 74176; 80048; 80076; 81001; 83690; 84484; 84702; 85025; 87086; 93005; 96374; 96375; 99284; 99285; J2270; J2405; J2470

== ENCOUNTER → 2024-10-17 15:17 | Outpatient (BNV) | payer OTHER, SELFPAY | PROVIDERS: Emergency Provider Emergency Medicine Emergency Medical Services; PCP Nurse Practitioner Family; Visit Provider Internal Medicine | DX: R94.31 Abnormal electrocardiogram [ECG] [EKG] (principal); R10.10 Upper abdominal pain, unspecified | CPT/HCPCS: 93010 ==

== ENCOUNTER → 2024-10-17 22:41 | Outpatient (BNV) | payer OTHER, SELFPAY | PROVIDERS: Emergency Provider Emergency Medicine Emergency Medical Services; PCP Nurse Practitioner Family; Visit Provider Radiology Diagnostic Radiology | DX: R10.9 Unspecified abdominal pain (principal) | CPT/HCPCS: 74176 ==

== ENCOUNTER → 2024-12-09 19:18 | Outpatient (BNV) | payer OTHER, SELFPAY | PROVIDERS: Emergency Provider Emergency Medicine; PCP Nurse Practitioner Family; Visit Provider Internal Medicine Cardiovascular Disease | DX: I25.2 Old myocardial infarction (principal) | CPT/HCPCS: 93010 ==

== ENCOUNTER 2024-12-09 22:44 | Emergency (ER) | payer OTHER, SELFPAY ==
--- NOTE | ~2024-12-09 | CT_ITS ---
CLINICAL HISTORY: Abdominal pain, history of pancreatitis CT Abdomen and Pelvis WO Contrast COMPARISON: CT/SR - CT ABDOMEN PELVIS WO IV CON - 10/17/24 23:11 EST FINDINGS: Diffusely hypodense liver consistent with hepatic steatosis. Hepatomegaly. Normal spleen. Left renal cyst. Nonobstructing left renal calculus. No visible ureteral calculi. Unremarkable right kidney. No hydronephrosis. Normal adrenal glands. Normal pancreas. Status post cholecystectomy. No abnormal biliary dilation. No evidence of bowel obstruction or colitis. No evidence of acute appendicitis. Unremarkable bladder. Status post hysterectomy. Left ovarian follicle noted. Right ovary not well visualized. No ascites. No pneumoperitoneum. No lymphadenopathy. No acute fracture. Degenerative changes in the spine. No abdominal aortic aneurysm. IMPRESSION: No acute findings. Nonemergent/incidental findings above. This document has been electronically signed by: Terrance Payne MD on 12/10/2024 01:49:59
[2024-12-09 19:14] VITALS: BP 123/79; PULSE 111; RESP 18; TEMP 37.1; O2SAT 98; BMI 27.4
--- NOTE | 2024-12-09 19:17 | ED_ITS ---
HPI - General Adult General Chief complaint: General Medical Stated complaint: sob,lower abd pain radiating to back Time Seen by Provider: 12/09/24 23:07 Source: patient Mode of arrival: ambulatory Limitations: no limitations History of Present Illness ED Provider: DR. Hernandez HPI narrative: 49-year-old female with past medical history for abdominal pain, alcohol dependence, chronic pancreatitis, non ST-elevation GA, hypercholesterolemia, depression, hysterectomy, cholecystectomy, appendectomy. Patient admitted to drinking alcohol recently and started diffuse abdominal pain patient with history of alcoholic pancreatitis. Patient also is complaining of left-sided chest pain with a shortness of breath history of lung blood clots. No recent travel, no lower extremity swelling tenderness. Patient report exposure to a sick contacts. Patient has a history of polysubstance abuse declined using any drugs recently. Related Data Home Medications ?Medication ?Instructions ?Recorded ?Confirmed buprenorphine 8 mg-naloxone 2 mg 1 film sublingual TID 06/08/24 08/19/24 sublingual film (Suboxone) buspirone 7.5 mg tablet 7.5 mg PO TID 06/08/24 08/19/24 fluoxetine 40 mg capsule 40 mg PO DAILY 06/08/24 08/19/24 gabapentin 400 mg capsule 400 mg PO TID 06/08/24 08/19/24 hydroxyzine pamoate 25 mg capsule 25 - 50 mg PO TID PRN Anxiety 06/08/24 08/19/24 zolpidem 5 mg tablet 5 mg PO BEDTIME 06/08/24 08/19/24 [id number] 250 2 tab PO Q6H PRN Headache 08/19/24 08/19/24 mg-250 mg-65 mg tablet (Excedrin Extra Strength) prazosin 2 mg capsule 4 mg PO BEDTIME 08/19/24 08/19/24 topiramate 25 mg tablet 12.5 mg PO DAILY 08/19/24 08/19/24 Previous Rx's ?Medication ?Instructions ?Recorded folic acid 1 mg tablet 1 mg PO DAILY 90 days #90 tabs 08/27/24 oxycodone 5 mg tablet 5 mg PO Q8H PRN severe pain (scale 08/27/24 score 7-10) #9 tabs thiamine mononitrate (vit B1) 100 100 mg PO DAILY 90 days #90 tabs 08/27/24 mg tablet ondansetron 4 mg disintegrating 4 mg PO Q8H PRN nausea and 10/18/24 tablet vomiting #20 tabs omeprazole 40 mg capsule,delayed 40 mg PO DAILY #20 caps 12/10/24 release Allergies Allergy/AdvReac Type Severity Reaction Status Date / Time ibuprofen [From Motrin] Allergy Rash Verified 12/09/24 19:16 Iodinated Contrast Media Allergy Anaphylaxis Verified 12/09/24 19:16 [Contrast Dye] Review of Systems 2 Review of Systems: All other systems are reviewed and are negative Constitutional: Reports as per HPI and Reports no additional constitutional complaints Eyes: Reports as per HPI and Reports no additional eye complaints Reports system reviewed and no additional complaints, except as documented Cardiovascular: Reports as per HPI and Reports no additional cardiovascular complaints Respiratory: Reports as per HPI and Reports no additional respiratory complaints Gastrointestinal: Reports as per HPI and Reports no additional gastrointestinal complaints Genitourinary: Reports no additional female genitourinary complaints Musculoskeletal: Reports no additional musculoskeletal complaints Skin/Breast: Reports system reviewed and no additional complaints, except as docu Psychiatric: Reports no additional psychiatric complaints Endocrine: Reports no additional endocrine complaints Hematologic/Lymphatic: Reports no additional hematologic/lymphatic complaints Allergic/Immunologic: Reports no additional allergic/immunologic complaints Reports system reviewed and no additional complaints, except as documented and Reports Abnormal speech present [facility] Past Medical History Surgical History Status post laparoscopic cholecystectomy Social History Social History Household Members: Family Housing: Apartment Do you presently have visiting nurse or other home services: No Alcohol intake: current Alcohol intake frequency: a few times a week Alcohol type: hard liquor Comment: pt keeps taking bed alarm off Patient Tobacco Use Status: Never used Tobacco Smoked in Last 30 Days: No Second Hand Smoke Exposure: No Use of substances other than those prescribed or required for medical reasons: Yes Substance Use Type: Marijuana Substance Use Frequency: Daily Advance Directives: Yes Advance Directives on File: Yes Advance Directives Date on File: 06/14/24 Do you have a plan to hurt others: No Plan service: No Physical Exam ED Vital Signs: Vital Signs - 24 hr 12/09/24 19:14 12/09/24 23:42 12/10/24 00:51 Temperature 98.8 F 98.5 F Pulse Rate 111 H 86 Respiratory Rate 18 19 16 Blood Pressure 123/79 123/74 Pulse Oximetry 98 99 Oxygen Delivery Method Room Air Room Air 12/10/24 02:04 Temperature 98.5 F Pulse Rate 78 Respiratory Rate 19 Blood Pressure 111/62 Pulse Oximetry 99 Oxygen Delivery Method Room Air BMI result Body Mass Index 27.4 Vital signs have been reviewed and appear to be correct. Blood pressure elevated. Heart rate elevated, Respiratory rate normal. Temperature normal. Oxygen saturation normal. Appearance: Alert. Oriented X3. No acute distress. Head: Normal external exam. Normocephalic. Atraumatic. No Ruiz signs noted. No raccoon eyes noted Eyes: PERRLA. EOMI. Conjunctiva and sclera normal. Eyelids normal. ENT: TM's Normal. Pharynx normal. Uvula midline. Moist mucous membranes. No trismus noted. No drooling noted. No muffled voice noted. Neck: Normal inspection. Neck supple. FROM. No adenopathy. Thyroid Normal. No meningeal signs. No neck mass noted. CVS: Normal heart rate and rhythm. Heart sound normal. No murmurs noted. Pulses normal throughout. Respiratory: No respiratory distress. Painless inspiration. Breath sounds normal. No wheezes/rales/rhonchi noted. Chest nontender. No accessory muscle usage noted or decreased air movement noted. Abdomen: Soft , epigastric tenderness, no guarding. Bowel sounds normal in all 4 quadrants. No distention noted. No organomegaly noted. No visible injury noted. Back: No CVA tenderness. Full range of motion noted. Skin: Skin warm and dry. Normal skin color. Normal skin turgor. No rashes/lesions/lacerations noted. Extremities: No lower extremity edema. Extremities exhibit normal range of motion. Extremities nontender. Neuro: Oriented X 3. Cranial nerve exam: II-XII are grossly intact No motor deficit. No sensory deficit. Reflexes normal. Course Course Course Narrative: This is an RME: Additional HPI, ROS, PE not included below will be deferred to primary provider. RME assessment and note performed by: Patt Buenrostro PA-C This is a [id number], with a hx of pancreatitis, who presents to the ER with complaints of nausea, vomiting, diarrhea, subjective fevers, chills, chest pain, cough, congestion, abdominal pain x 2 days. Plan: Labs, EKG, CXR, viral swabs, further ER eval needed. Reevaluation(s) Reevaluation #1: Patient is not happy that the results showed no acute findings, no apparent discomfort, VSS, labs at baseline for the patient, CT of the abdomen and pelvis shows no acute abnormality in the abdomen. No risk for pulmonary embolism no recent travel, no lower extremity swelling, no prolonged immobilization, D-dimer is negative. Patient's presentation raising concern of a drug-seeking. Time: 02:53 Medications Administered Discontinued Medications Generic Name Dose Route Start Last Admin Trade Name Freq PRN Reason Stop Dose Admin Al Hydroxide/Mg Hydroxide 30 ml 12/09/24 23:35 12/10/24 00:51 Magnesium Hydrox/Alum Hydrox 30 Ml Oral.Susp PO 12/09/24 23:36 30 ml ONCE ONE Administration Famotidine 20 mg 12/09/24 23:35 12/10/24 00:51 Famotidine/Pf 20 Mg/2 Ml Vial IVPUSH 12/09/24 23:36 20 mg ONCE ONE Administration Hydromorphone HCl 2 mg 12/09/24 23:35 12/10/24 00:51 Hydromorphone Hcl 2 Mg/Ml Vial IVPUSH 12/09/24 23:36 2 mg ONCE ONE Administration Protocol Sodium Chloride 1,000 mls @ 999 mls/hr 12/09/24 23:35 12/10/24 00:52 Ns IV 12/10/24 00:35 999 mls/hr .Q1H1M ONE Administration Medical Decision Making Differential Diagnosis Differential Diagnoses: The differential diagnosis associated with the presentation includes (Pancreatitis, gastritis, colitis, diverticulitis, pulmonary embolism, ACS, severe anemia, electrolyte derangement, drug-seeking behavior.) Admission/Observation Consideration of admission/observation: Escalation of care including admission/observation considered Lab Data MDM Lab Attestation statement: I reviewed the patient's lab results. 12/09/24 19:58 12/09/24 19:58 Labs: Lab Results 12/09/24 12/09/24 12/10/24 Range/Units 19:58 22:58 01:59 WBC 6.8 (4.8-10.8) X10*3/uL RBC 4.30 (4.20-5.50) X10*6/uL Hgb 11.0 L (12.0-16.0) g/dl Hct 32.8 L (37.0-47.0) % MCV 76.3 L (80.0-98.0) fL MCH 25.6 L (27.0-33.0) pg MCHC 33.5 (31.0-35.0) g/dl RDW 13.3 (11.0-16.0) % Plt Count 255 (160-400) X10*3/uL MPV 9.0 L (9.4-12.3) fL Immature Gran % (Auto) 0.3 (0.0-0.4) % Neut % (Auto) 65.4 (45-73) % Lymph % (Auto) 26.8 (20-40) % [place] % (Auto) 5.7 (2-11) % Eos % (Auto) 1.5 (0-4) % Baso % (Auto) 0.3 (0-2) % Lymph # (Auto) 1.8 (1.2-4.9) X10*3/uL [place] # (Auto) 0.4 (0.1-1.2) X10*3/uL Eos # (Auto) 0.1 (0.0-0.4) X10*3/uL Baso # (Auto) 0.0 (0.0-0.2) X10*3/uL Abs Immat Gran (auto) 0.02 (0.00-0.03) X10*3/uL Absolute Neuts (auto) 4.5 (2.0-8.3) x10*3/uL Absolute Nucleated RBC 0.000 (0.0-0.012) X10*3/uL Nucleated RBC % (auto) 0.0 (0.0-0.2) /100WBC D-Dimer High Sensitivty < 150 NG/ML Sodium 139 (135-145) mmol/L Potassium 3.4 (3.3-5.1) mmol/L Chloride 108 (96-108) mmol/L Carbon Dioxide 21 L (22-29) mmol/L Anion Gap 13 (12-20) BUN 16 (9-16) mg/dL Creatinine 0.78 (0.5-1.4) mg/dL Estim Creat Clear Calc 78.9 Estimated GFR > 60 Random Glucose 116 H (60-115) mg/dL Calcium 9.9 D (8.4-10.2) mg/dL Magnesium 1.8 (1.6-2.6) mg/dL Total Bilirubin 0.5 (0.0-1.0) mg/dL Direct Bilirubin 0.2 (0.0-0.5) mg/dL AST 39 H (5-31) U/L ALT 33 H (0-31) U/L Alkaline Phosphatase 132 H (39-117) U/L Troponin I High Sens < 2.7 (<3.5-17.0) ng/L Total Protein 8.4 H (6.5-8.0) g/dL Albumin 4.3 (3.5-5.0) g/dL Lipase 13 (8-78) U/L Beta HCG, Quant 4 mIU/mL Urine Color Yellow Urine Appearance Clear Urine pH 7.5 (5.0-9.0) Ur Specific [place] 1.020 (1.005-1.025) Urine Protein Negative (Neg-Trace) mg/dL Urine Glucose (UA) Negative (Negative) mg/dL Urine Ketones Trace (Negative) mg/dL Urine Blood Negative (Negative) Urine Nitrite Negative (Negative) Ur Leukocyte Esterase Negative (Negative) Urine Test NEGATIVE (NEGATIVE) Influenza Type A (PCR) NEGATIVE (Negative) Influenza Type B (PCR) NEGATIVE (Negative) RSV RNA Qual (PCR) NEGATIVE (Negative) SARS-CoV-2 RNA (RT-PCR) NEGATIVE (Negative) Independent Interpretation I performed an independent interpretation of an: CT Scan (Abdomen and pelvis:Diffusely hypodense liver consistent with hepatic steatosis. Hepatomegaly. Normal spleen. Left renal cyst. Nonobstructing left renal calculus. No visible ureteral calculi. Unremarkable right kidney. No hydronephrosis. Normal adrenal glands. Normal pancreas. Status post cholecyste) Radiology Impression Discussion of test interpretation with radiology: I have reviewed the radiologist's reading. Discharge Plan Discharge Clinical Impression: Alcoholic gastritis Patient Disposition: Home, Self-Care Instructions: Gastritis (ED) Prescriptions: New omeprazole 40 mg capsule,delayed release(DR/EC) 40 mg PO DAILY Qty: 20 0RF No Action fluoxetine 40 mg capsule 40 mg PO DAILY gabapentin 400 mg capsule 400 mg PO TID buspirone 7.5 mg tablet 7.5 mg PO TID zolpidem 5 mg tablet 5 mg PO BEDTIME hydroxyzine pamoate 25 mg capsule 25 - 50 mg PO TID PRN (Reason: Anxiety) buprenorphine-naloxone [Suboxone] 8-2 mg film 1 film sublingual TID topiramate 25 mg tablet 12.5 mg PO DAILY Rx Instructions: DOSE TITRATION Excedrin Extra Strength 250-250-65 mg Tablet 2 tab PO Q6H PRN (Reason: Headache) prazosin 2 mg capsule 4 mg PO BEDTIME folic acid 1 mg Tablet 1 mg PO DAILY 90 Days Qty: 90 0RF thiamine mononitrate (vit B1) 100 mg Tablet 100 mg PO DAILY 90 Days Qty: 90 0RF oxycodone 5 mg tablet 5 mg PO Q8H PRN (Reason: severe pain (scale score 7-10)) Qty: 9 0RF Rx Instructions: Partial Fill upon patient request. ondansetron 4 mg tablet,disintegrating 4 mg PO Q8H PRN (Reason: nausea and vomiting) Qty: 20 0RF Referrals: Mikki Kwan NP [Primary Care Provider] - Print Language: Hungarian
--- NOTE | 2024-12-09 19:18 | ECG_ITS ---
Test Reason : cp Blood Pressure : */* mmHG Vent. Rate : 93 BPM Atrial Rate : 93 BPM P-R Int : 138 ms QRS Dur : 76 ms QT Int : 360 ms P-R-T Axes : 72 -62 19 degrees QTcB Int : 447 ms Normal sinus rhythm Left axis deviation Inferior infarct (cited on or before 17-Oct-2024) Abnormal ECG When compared with ECG of 17-Oct-2024 15:25, Nonspecific T wave abnormality no longer evident in Anterior leads Referred By: Patt Buenrostro Electronically Signed By: Joseph Herzog
[2024-12-09 20:02] LABS: MANUAL DIFF FLAG NO
[2024-12-09 20:19] LABS: Alanine Aminotransferase 33 U/L (0-31); Albumin Level 4.3 g/dL (3.5-5.0); Alkaline Phosphatase 132 U/L (39-117); Anion Gap 13 (12-20); Aspartate Amino Transferase 39 U/L (5-31); Bilirubin Direct 0.2 mg/dL (0.0-0.5); Bilirubin Total 0.5 mg/dL (0.0-1.0); Blood Urea Nitrogen 16 mg/dL (9-16); Calcium 9.9 mg/dL (8.4-10.2); Carbon Dioxide 21 mmol/L (22-29); Chloride 108 mmol/L (96-108); Creatinine Clr Calc Pharmacy 78.9; Estimated Glomerular Filt Rate > 60; Glucose Random 116 mg/dL (60-115); Lipase 13 U/L (8-78); Magnesium 1.8 mg/dL (1.6-2.6); Potassium 3.4 mmol/L (3.3-5.1); Sodium 139 mmol/L (135-145); Total Protein 8.4 g/dL (6.5-8.0)
[2024-12-09 20:22] LABS: Basophils Percent Auto 0.3 % (0-2); Eosinophils Absolute Auto 0.1 X10*3/uL (0.0-0.4); Eosinophils Percent Auto 1.5 % (0-4); Hematocrit 32.8 % (37.0-47.0); Imm Gran Abs Auto 0.02 X10*3/uL (0.00-0.03); Imm Gran Pct Auto 0.3 % (0.0-0.4); Lymphocytes Absolute Auto 1.8 X10*3/uL (1.2-4.9); Lymphocytes Percent Auto 26.8 % (20-40); Mean Corpuscular HGB Conc 33.5 g/dl (31.0-35.0); Mean Corpuscular Hemoglobin 25.6 pg (27.0-33.0); Mean Corpuscular Volume 76.3 fL (80.0-98.0); Monocytes Absolute Auto 0.4 X10*3/uL (0.1-1.2); Monocytes Percent Auto 5.7 % (2-11); Neutrophils Absolute Auto 4.5 x10*3/uL (2.0-8.3); Neutrophils Percent Auto 65.4 % (45-73); Platelet Count 255 X10*3/uL (160-400); Red Cell Distribution Width 13.3 % (11.0-16.0); White Blood Count 6.8 X10*3/uL (4.8-10.8)
[2024-12-09 20:25] LABS: HCG Quantitative 4 mIU/mL
[2024-12-09 20:26] LABS: Troponin-I High Sensitivity < 2.7 ng/L (<3.5-17.0)
[2024-12-09 20:45] LABS: Influenza A PCR NEGATIVE (Negative); Influenza B PCR NEGATIVE (Negative); Resp Syncy Virus RNA Qual PCR NEGATIVE (Negative); SARS COV2 PCR INHOUSE NEGATIVE (Negative)
[2024-12-09 23:05] LABS: Appearance Urine Clear; Color Urine Yellow; Glucose Urine UA Negative (Negative); Leukocyte Esterase Urine Negative (Negative); Nitrite Urine Negative (Negative); PH 7.5 (5.0-9.0); Urine Blood Negative (Negative); Urine Ketones Trace mg/dL (Negative); Urine Protein Negative (Neg-Trace)
[2024-12-09 23:33] LABS: Urine Pregnancy NEGATIVE (NEGATIVE)
[2024-12-09 23:34] LABS: UPreg QC Valid YES
--- NOTE | 2024-12-09 23:40 | PC.NURSE ---
pt awake asking for sunny wrap for her ankles, pain medication for her legs, and she is asking for a anti inflammatory medication provider made aware pt is also a difficult stick. plan is for a CT.
[2024-12-09 23:42] VITALS: BP 123/74; PULSE 86; RESP 19; TEMP 36.9; O2SAT 99
--- NOTE | 2024-12-09 23:43 | MHC.EDTECH ---
assumed care of pt @2300, at this time vs taken and stable, awaiting US for IV insertion, call light given for safety.
--- NOTE | 2024-12-09 23:45 | PC.NURSE ---
pt is a difficult stick and provider is aware that the pt usally needs a ultra sound iv placed.
--- NOTE | 2024-12-09 23:53 | PC.NURSE ---
pt refusing ct due to she wants her pain medication first. pt doesnt have a iv at this time and provider is planning on inserting a ultra sound iv. rad is aware, provider made aware. ct is with out contrast and pt is aware.
[2024-12-10 00:51] VITALS: RESP 16
[2024-12-10] MEDS: Magnesium Hydrox/Alum Hydrox 30 ML ORAL.SUSP PO (00:51)
[2024-12-10] MEDS: HYDROmorphone HCl 2 MG/ML VIAL IVPUSH (00:51)
[2024-12-10] MEDS: Famotidine/PF 20 MG/2 ML VIAL IVPUSH (00:51)
[2024-12-10] MEDS: 0.9 % Sodium Chloride 1,000 ML 999 ML IV (00:52)
[2024-12-10 02:04] VITALS: BP 111/62; PULSE 78; RESP 19; TEMP 36.9; O2SAT 99
[2024-12-10 02:11] LABS: D Dimer High Sensitivity < 150 NG/ML
[2024-12-10 02:51] VITALS: BP 111/62; PULSE 78; RESP 19; TEMP 36.9
[2024-12-10 02:56] VITALS: BP 111/62; PULSE 78; RESP 19; TEMP 36.9
== END 2024-12-10 03:00 | disposition home or self-care (01) ==
PROVIDERS: Physician Assistant Medical; Emergency Provider Emergency Medicine; PCP Nurse Practitioner Family
DX: K29.20 Alcoholic gastritis without bleeding (principal); F10.20 Alcohol dependence, uncomplicated; Y90.9 Presence of alcohol in blood, level not specified; R06.02 Shortness of breath; R11.2 Nausea with vomiting, unspecified; Z03.818 Encounter for observation for suspected exposure to other biological agents ruled out; Z90.49 Acquired absence of other specified parts of digestive tract; F19.10 Other psychoactive substance abuse, uncomplicated
CPT/HCPCS: 0241U; 36415; 74176; 80048; 80076; 81003; 81025; 83690; 83735; 84484; 84702; 85025; 85379; 93005; 96361; 96374; 96375; 99285; J1171

== ENCOUNTER → 2024-12-10 | Outpatient (BNV) | payer OTHER, SELFPAY | PROVIDERS: Emergency Provider Emergency Medicine; PCP Nurse Practitioner Family; Visit Provider Radiology Diagnostic Radiology | DX: R10.9 Unspecified abdominal pain (principal) | CPT/HCPCS: 74176 ==

== ENCOUNTER 2025-07-20 15:42 | Emergency (ER) | payer OTHER, SELFPAY ==
--- NOTE | ~2025-07-20 | CT_ITS ---
CLINICAL HISTORY: Upper abdominal pain CT abdomen and pelvis without contrast Comparison: CT/SR - CT ABDOMEN PELVIS WO IV CON - 12/10/24 01:19 EDT Findings: Limited evaluation given the lack of intravenous contrast. Lower thorax: Similar subpleural reticulations in the lung bases. Liver: Hepatic steatosis. Multiple hyperdense foci throughout the liver parenchyma (series 4, image 260 and image 72 and image 163). These are favored to represent areas of fatty sparing. Gallbladder: Cholecystectomy. Spleen: Normal Pancreas: Few parenchymal calcifications which can be seen as sequelae of chronic pancreatitis. Adrenal glands: No nodules. Kidneys: No hydronephrosis. 3 mm nonobstructing stone in the lower pole of the left kidney. 3.0 cm simple cyst in the upper pole of the left kidney. Pelvic organs: Status post hysterectomy. Unchanged 2.3 cm cystic lesion in theleft adnexal region which is unchanged dating back to July 2024. The right ovary is not visualized. Peritoneum and Gastrointestinal: No bowel obstruction, pneumoperitoneum, or ascites. The appendix is not visualized. Vessels: Atherosclerosis. Bones and soft tissues: Multilevel degenerative changes. IMPRESSION: No acute CT findings of the abdomen or pelvis. Hepatic steatosis. Multiple hyperdense foci throughout the liver likely represent areas of fatty sparing. This could be further confirmed with a nonurgent liver MRI. This document has been electronically signed by: Marixa Salguero MD on 07/20/2025 18:46:39
--- NOTE | ~2025-07-20 | XR_ITS ---
CLINICAL HISTORY: Epigastric pain 1 view chest x-ray. Comparison: None provided Findings: Heart size is normal. No consolidation or effusion. No acute fracture. The visualized upper abdomen is unremarkable. Impression: No acute cardiopulmonary process. This document has been electronically signed by: Marixa Salguero MD on 07/20/2025 20:30:44
[2025-07-20 15:44] VITALS: BP 136/63; PULSE 114; RESP 20; TEMP 36.6; O2SAT 100; BMI 25.1
--- NOTE | 2025-07-20 15:45 | ED.GENADULT ---
HPI - General Adult General Chief complaint: Abdominal Pain Stated complaint: lower abd pain/and higher to the back/sob Time Seen by Provider: 07/20/25 17:14 Source: patient Mode of arrival: ambulatory Limitations: no limitations History of Present Illness ED Provider: DR. Hernandez HPI narrative: 50-year-old female with PMH significant for chronic abdominal pain, alcohol dependency, carpal tunnel syndrome, cocaine use, hidradenitis, non ST-elevation [place], HLD, depression, menorrhagia s/p hysterectomy, chronic microcytic anemia, DVT following a knee surgery, GERD patient presented with 3 days of left upper abdominal pain that now is right upper abdominal pain, patient has been complaining of exertional chest pain and shortness of breath for the past 4 5 days, generalized body ache, and upper abdominal pain. No lower extremity swelling or tenderness, no recent travel, history of DVT provoked by a knee surgery in the past. No recent travel. Past intra-abdominal surgery history is significant for appendectomy and cholecystectomy. Related Data Home Medications ?Medication ?Instructions ?Recorded ?Confirmed buprenorphine 8 mg-naloxone 2 mg 1 film sublingual TID 06/08/24 08/19/24 sublingual film (Suboxone) buspirone 7.5 mg tablet 7.5 mg PO TID 06/08/24 08/19/24 fluoxetine 40 mg capsule 40 mg PO DAILY 06/08/24 08/19/24 gabapentin 400 mg capsule 400 mg PO TID 06/08/24 08/19/24 hydroxyzine pamoate 25 mg capsule 25 - 50 mg PO TID PRN Anxiety 06/08/24 08/19/24 zolpidem 5 mg tablet 5 mg PO BEDTIME 06/08/24 08/19/24 gfrgrsc-hivgqoightoaf-casnjsyn 250 2 tab PO Q6H PRN Headache 08/19/24 08/19/24 mg-250 mg-65 mg tablet (Excedrin Extra Strength) prazosin 2 mg capsule 4 mg PO BEDTIME 08/19/24 08/19/24 topiramate 25 mg tablet 12.5 mg PO DAILY 08/19/24 08/19/24 Previous Rx's ?Medication ?Instructions ?Recorded folic acid 1 mg tablet 1 mg PO DAILY 90 days #90 tabs 08/27/24 oxycodone 5 mg tablet 5 mg PO Q8H PRN severe pain (scale 08/27/24 score 7-10) #9 tabs thiamine mononitrate (vit B1) 100 100 mg PO DAILY 90 days #90 tabs 08/27/24 mg tablet ondansetron 4 mg disintegrating 4 mg PO Q8H PRN nausea and 10/18/24 tablet vomiting #20 tabs omeprazole 40 mg capsule,delayed 40 mg PO DAILY #20 caps 12/10/24 release Allergies Allergy/AdvReac Type Severity Reaction Status Date / Time ibuprofen (From Motrin) Allergy Rash Verified 07/20/25 15:48 Iodinated Contrast Media Allergy Anaphylaxis Verified 07/20/25 15:48 (Contrast Dye) Review of Systems Review of Systems: All other systems are reviewed and are negative Constitutional: Reports as per HPI and Reports no additional constitutional complaints Eyes: Reports as per HPI and Reports no additional eye complaints Reports system reviewed and no additional complaints, except as documented Cardiovascular: Reports as per HPI and Reports no additional cardiovascular complaints Respiratory: Reports as per HPI and Reports no additional respiratory complaints Gastrointestinal: Reports as per HPI and Reports no additional gastrointestinal complaints Genitourinary: Reports no additional female genitourinary complaints Musculoskeletal: Reports no additional musculoskeletal complaints Skin/Breast: Reports system reviewed and no additional complaints, except as docu Psychiatric: Reports no additional psychiatric complaints Endocrine: Reports no additional endocrine complaints Hematologic/Lymphatic: Reports no additional hematologic/lymphatic complaints Allergic/Immunologic: Reports no additional allergic/immunologic complaints Reports system reviewed and no additional complaints, except as documented and Reports Abnormal speech present [facility] Past Medical History Surgical History Status post laparoscopic cholecystectomy Social History Social History Household Members: Family Housing: Apartment Do you presently have visiting nurse or other home services: No Alcohol intake: current Alcohol intake frequency: a few times a week Alcohol type: hard liquor Comment: pt keeps taking bed alarm off Patient Tobacco Use Status: Never used Tobacco Second Hand Smoke Exposure: No Substance Use Type: Marijuana Advance Directives: Yes Advance Directives on File: Yes Advance Directives Date on File: 06/14/24 service: No Physical Exam ED Vital Signs: Vital Signs - 24 hr 07/20/25 15:44 Temperature 98 F Pulse Rate 114 H Respiratory Rate 20 Blood Pressure 136/63 Pulse Oximetry 100 Oxygen Delivery Method Room Air BMI result Body Mass Index 25.1 Vital signs have been reviewed and appear to be correct. Blood pressure elevated. Heart rate normal. Respiratory rate normal. Temperature normal. Oxygen saturation normal. Appearance: Alert. Oriented X3. No acute distress. Head: Normal external exam. Normocephalic. Atraumatic. No Ruiz signs noted. No raccoon eyes noted Eyes: PERRLA. EOMI. Conjunctiva and sclera normal. Eyelids normal. ENT: TM's Normal. Pharynx normal. Uvula midline. Moist mucous membranes. No trismus noted. No drooling noted. No muffled voice noted. Neck: Normal inspection. Neck supple. FROM. No adenopathy. Thyroid Normal. No meningeal signs. No neck mass noted. CVS: Normal heart rate and rhythm. Heart sound normal. No murmurs noted. Pulses normal throughout. Respiratory: No respiratory distress. Painless inspiration. Breath sounds normal. No wheezes/rales/rhonchi noted. Chest nontender. No accessory muscle usage noted or decreased air movement noted. Abdomen: Soft and nontender. Bowel sounds normal in all 4 quadrants. No distention noted. No organomegaly noted. No visible injury noted. Back: No CVA tenderness. Full range of motion noted. Skin: Skin warm and dry. Normal skin color. Normal skin turgor. No rashes/lesions/lacerations noted. Extremities: No lower extremity edema. Extremities exhibit normal range of motion. Extremities nontender. Neuro: Oriented X 3. Cranial nerve exam: II-XII are grossly intact No motor deficit. No sensory deficit. Reflexes normal. Course Reevaluation(s) Reevaluation #1: Acute on chronic abdominal pain with no acute findings on the CT of the abdomen and pelvis, reassuring labs and UA. Patient feels better after pain medication in the ED, able to tolerate p.o. intake with out worsening of her symptoms, will reassure and discharge to follow-up with PCP. Patient had history of DVT that was provoked after a knee surgery, patient has no risk for DVT or pulmonary embolism with normal vital signs and negative D-dimer to suggest thromboembolic phenomena. Time: 19:53 Medications Administered Discontinued Medications Generic Name Dose Route Start Last Admin Trade Name Freq PRN Reason Stop Dose Admin Al Hydroxide/Mg Hydroxide 30 ml 07/20/25 15:46 07/20/25 16:36 Magnesium Hydrox/Alum Hydrox 30 Ml Oral.Susp PO 07/20/25 15:47 30 ml ONCE ONE Administration Hydromorphone HCl 1 mg 07/20/25 17:20 07/20/25 17:58 Hydromorphone Hcl 1 Mg/Ml Syringe IVPUSH 07/20/25 17:21 1 mg ONCE ONE Administration Protocol Sodium Chloride 1,000 mls @ 999 mls/hr 07/20/25 19:05 07/20/25 19:51 Ns IV 07/20/25 20:05 999 mls/hr .Q1H1M ONE Administration Ketorolac Tromethamine 15 mg 07/20/25 17:20 07/20/25 17:58 Ketorolac Tromethamine 15 Mg/Ml Vial IVPUSH 07/20/25 17:21 15 mg ONCE ONE Administration Lidocaine HCl 15 ml 07/20/25 15:46 07/20/25 16:36 Lidocaine Hcl Viscous 2 % 15 Ml Solution MUCOUS MEM 07/20/25 15:47 15 ml ONCE ONE Administration Ondansetron HCl 4 mg 07/20/25 15:46 07/20/25 16:16 Ondansetron Odt 4 Mg Tab.Rapdis TRANSLINGU 07/20/25 15:47 4 mg ONCE ONE Administration Medical Decision Making Differential Diagnosis Differential Diagnoses: The differential diagnosis associated with the presentation includes (Pulmonary embolism, ACS, pneumonia, pneumothorax, pleural effusion, electrolyte derangement, severe anemia.) Admission/Observation Consideration of admission/observation: Escalation of care including admission/observation considered Lab Data MDM Lab Attestation statement: I reviewed the patient's lab results. 07/20/25 16:06 07/20/25 16:06 Labs: Lab Results 07/20/25 07/20/25 Range/Units 16:06 17:38 WBC 5.5 (4.8-10.8) X10*3/uL RBC 3.95 L (4.20-5.50) X10*6/uL Hgb 11.2 L (12.0-16.0) g/dl Hct 34.4 L (37.0-47.0) % MCV 87.1 (80.0-98.0) fL MCH 28.4 (27.0-33.0) pg MCHC 32.6 (31.0-35.0) g/dl RDW 13.2 (11.0-16.0) % Plt Count 224 (160-400) X10*3/uL MPV 9.9 (9.4-12.3) fL Immature Gran % (Auto) 0.4 (0.0-0.4) % Neut % (Auto) 61.4 (45-73) % Lymph % (Auto) 29.6 (20-40) % Divide % (Auto) 7.3 (2-11) % Eos % (Auto) 0.9 (0-4) % Baso % (Auto) 0.4 (0-2) % Lymph # (Auto) 1.6 (1.2-4.9) X10*3/uL Divide # (Auto) 0.4 (0.1-1.2) X10*3/uL Eos # (Auto) 0.1 (0.0-0.4) X10*3/uL Baso # (Auto) 0.0 (0.0-0.2) X10*3/uL Abs Immat Gran (auto) 0.02 (0.00-0.03) X10*3/uL Absolute Neuts (auto) 3.4 (2.0-8.3) x10*3/uL Absolute Nucleated RBC 0.000 (0.0-0.012) X10*3/uL Nucleated RBC % (auto) 0.0 (0.0-0.2) /100WBC D-Dimer High Sensitivty 225 NG/ML Sodium 141 (135-145) mmol/L Potassium 3.7 (3.3-5.1) mmol/L Chloride 111 H (96-108) mmol/L Carbon Dioxide 19 L (22-29) mmol/L Anion Gap 15 (12-20) BUN 12 (9-16) mg/dL Creatinine 0.78 (0.5-1.4) mg/dL Estim Creat Clear Calc 74.8 Estimated GFR > 60 Random Glucose 138 H (60-115) mg/dL Calcium 9.9 (8.4-10.2) mg/dL Magnesium 1.8 (1.6-2.6) mg/dL Total Bilirubin 0.2 (0.0-1.0) mg/dL AST 40 H (5-31) U/L ALT 22 (0-31) U/L Alkaline Phosphatase 138 H (39-117) U/L Troponin I High Sens < 2.7 (<3.5-17.0) ng/L Total Protein 8.0 (6.5-8.0) g/dL Albumin 4.3 (3.5-5.0) g/dL Lipase 22 (8-78) U/L Urine Color Dark Yellow Urine Appearance Cloudy Urine pH 5.5 (5.0-9.0) Ur Specific [place] 1.020 (1.005-1.025) Urine Protein Trace (Neg-Trace) mg/dL Urine Glucose (UA) Negative (Negative) mg/dL Urine Ketones Trace (Negative) mg/dL Urine Blood Negative (Negative) Urine Nitrite Negative (Negative) Ur Leukocyte Esterase Trace H (Negative) Urine RBC 0-2 (0-2) /HPF Urine WBC 0-5 (0-5) /HPF Ur Squamous Epith Cells 11-20 (0-2) /HPF Urine Bacteria 2+ (None Seen) Hyaline Casts 3-5 (0-2) /LPF Independent Interpretation I performed an independent interpretation of an: Plain X-Ray (Chest: No acute intrathoracic pathology.) and CT Scan (Abdomen pelvis: No acute intra-abdominal pathology.) Radiology Impression Discussion of test interpretation with radiology: I have reviewed the radiologist's reading. Discharge Plan Discharge Clinical Impression: Abdominal pain Patient Disposition: Home, Self-Care Instructions: Abdominal Pain (ED) Prescriptions: No Action fluoxetine 40 mg capsule 40 mg PO DAILY gabapentin 400 mg capsule 400 mg PO TID buspirone 7.5 mg tablet 7.5 mg PO TID zolpidem 5 mg tablet 5 mg PO BEDTIME hydroxyzine pamoate 25 mg capsule 25 - 50 mg PO TID PRN (Reason: Anxiety) buprenorphine-naloxone [Suboxone] 8-2 mg film 1 film sublingual TID topiramate 25 mg tablet 12.5 mg PO DAILY Rx Instructions: DOSE TITRATION Excedrin Extra Strength 250-250-65 mg Tablet 2 tab PO Q6H PRN (Reason: Headache) prazosin 2 mg capsule 4 mg PO BEDTIME folic acid 1 mg Tablet 1 mg PO DAILY 90 Days Qty: 90 0RF thiamine mononitrate (vit B1) 100 mg Tablet 100 mg PO DAILY 90 Days Qty: 90 0RF oxycodone 5 mg tablet 5 mg PO Q8H PRN (Reason: severe pain (scale score 7-10)) Qty: 9 0RF Rx Instructions: Partial Fill upon patient request. ondansetron 4 mg tablet,disintegrating 4 mg PO Q8H PRN (Reason: nausea and vomiting) Qty: 20 0RF omeprazole 40 mg capsule,delayed release(DR/EC) 40 mg PO DAILY Qty: 20 0RF Referrals: Mikki Kwan NP [Primary Care Provider, Family Practice] Print Language: Thai
[2025-07-20 16:11] LABS: MANUAL DIFF FLAG NO
[2025-07-20 16:14] LABS: Hematocrit 34.4 % (37.0-47.0); Hemoglobin 11.2 g/dl (12.0-16.0); Imm Gran Abs Auto 0.02 X10*3/uL (0.00-0.03); Imm Gran Pct Auto 0.4 % (0.0-0.4); Lymphocytes Absolute Auto 1.6 X10*3/uL (1.2-4.9); Mean Corpuscular HGB Conc 32.6 g/dl (31.0-35.0); Mean Corpuscular Hemoglobin 28.4 pg (27.0-33.0); Mean Corpuscular Volume 87.1 fL (80.0-98.0); NRBC Abs Auto 0.000 X10*3/uL (0.0-0.012); NRBC Pct Auto 0.0 /100WBC (0.0-0.2); Platelet Count 224 X10*3/uL (160-400); Red Blood Count 3.95 X10*6/uL (4.20-5.50); White Blood Count 5.5 X10*3/uL (4.8-10.8)
[2025-07-20 16:16] LABS: Appearance Urine Cloudy; Glucose Urine UA Negative (Negative); PH 5.5 (5.0-9.0); Specific Gravity - Urine 1.020 (1.005-1.025); UMIC TRIGGER UA YES
[2025-07-20 16:31] LABS: Alanine Aminotransferase 22 U/L (0-31); Albumin Level 4.3 g/dL (3.5-5.0); Alkaline Phosphatase 138 U/L (39-117); Anion Gap 15 (12-20); Aspartate Amino Transferase 40 U/L (5-31); Blood Urea Nitrogen 12 mg/dL (9-16); Calcium 9.9 mg/dL (8.4-10.2); Carbon Dioxide 19 mmol/L (22-29); Chloride 111 mmol/L (96-108); Creatinine Clr Calc Pharmacy 74.8; Estimated Glomerular Filt Rate > 60; Lipase 22 U/L (8-78); Magnesium 1.8 mg/dL (1.6-2.6); Potassium 3.7 mmol/L (3.3-5.1); Sodium 141 mmol/L (135-145); Total Protein 8.0 g/dL (6.5-8.0)
[2025-07-20] MEDS: Magnesium Hydrox/Alum Hydrox 30 ML ORAL.SUSP PO (16:36)
[2025-07-20] MEDS: Lidocaine HCl Viscous 2 % 15 ML SOLUTION MUCOUS MEM (16:36)
[2025-07-20 17:58] LABS: D Dimer High Sensitivity 225 NG/ML
[2025-07-20 18:06] LABS: Troponin-I High Sensitivity < 2.7 ng/L (<3.5-17.0)
--- NOTE | 2025-07-20 19:57 | ECG_ITS ---
Test Reason : ABDOMEN PAIN Blood Pressure : */* mmHG Vent. Rate : 73 BPM Atrial Rate : 73 BPM P-R Int : 158 ms QRS Dur : 82 ms QT Int : 422 ms P-R-T Axes : 59 -13 31 degrees QTcB Int : 464 ms Normal sinus rhythm Normal ECG When compared with ECG of 09-Dec-2024 19:49, Criteria for Inferior infarct are no longer Present Referred By: Nic Hernandez Electronically Signed By: RANDOLPH SNYDER
--- OUTSIDE RECORDS SUMMARY | 2025-07-20 20:04 | XMS_ITS | Data Portability ---
Author Organization [facility], [employer] Address [address] [place] [address] [place] [address] Care Team Providers Care Superintendent Tests Name Role Phone KETURAH ULLOA Referring Provider KETURAH ULLOA Primary Care Provider Assessment Encounter Date Assessment Date Assessment LastModified by Organization Details LastModified Time 08/02/2024 08/02/2024 IMPRESSION: Episodic numbness of hands and feet with dropping things and trouble walking for the respective symptoms; Daily headaches fluctuating with OTC pain reliever ~5 times a day Stuttering, poor memory, daytime tiredness. Past history includes depression, anxiety, panic attacks, nightmares, history of seizure, per patient, on gabapentin, sleep apnea off CPAP because of poor mask fit. >>>>>>>>>>>> August 02, 2024 Medications per patient: Gabapentin, fluoxetine, buspirone, prazosin, ambien She would like migraine preventative. I suggest topiramate and discussed possible side effects and we decide on a cautious titration as detailed below. She takes 15-20 Excedrin Migraine per day, on average. Acetaminophen per tablet = 250 mg. Even 15 tablets would put her at 3.75 g/day verging on toxic 4 g/day. I forgot to focus on this issue but I will put it in my plan. At this point I defer to primary care for [id number] discussion of potential acetaminophen toxicity. History and exam raise concern for widespread neuropathy, with exam suggestive of focal upper and lower extremity neuropathy, with polyneuropathy possible as well. This is unusual in a young woman. I offer electrodiagnostic studies, described them and she accepts. Pain and lack of sleep both may worsen memory. I believe the best way to treat her memory symptoms >>>>>>>>>>>> PLAN Andrés Ramos August 02, 2024 Please reduce acetaminophen at least to at or below 12 tablets/day (3 g/day) to reduce the possibility of toxicity to liver, which can be fatal. EMG & nerve conduction studies of left upper and lower extremity (left top of the distal bottom of the foot is following altered numbness on exam; Tinel's sign is only found at the right fibular, so we will also do bilateral peroneal studies.) Topiramate titration for migraine prevention: Topamax: (topiramate, generic name) 25-mg tablet one half tablet nightly one week one half tablet twice daily one week one half tablet morning., one tablet nightly, one week one tablet twice daily afterwards Topamax very rarely causes rash or acute eye pain. If this happens, stop the medicine and call me. Topamax also may occasionally causes side effects of tingling of fingers, toes or tongue, or fatigue. Occasionally, at higher doses, it can also cause word finding problems or mental slowing. Occasionally Topamax may affect mood-for the good or for the bad. If the side effects are mild, wait a few days and see if they go away. It side effects do not go away, or are not mild, reduced dose to the previous dose where there were no side effects. If the only side effect you have is tiredness, and this starts when you start the morning dose, switch the whole dosage to the evening only. If you are on estrogen containing medication, it could reduce blood concentration of estrogen and therefore the effectiveness of the medication. If you stay on this medication long-term, please be aware that there is a small predisposition to reduce the amount that you perspire. Therefore, in the hot sun, if you do not pay attention, you could get overheated. Also, if you stay on this medication long-term, there is a predisposition to reduce appetite and cause weight loss. Weight loss is rarely more than 10% and rarely causes problems. Unusually, there can also be nausea involved with this reduced appetite. If you have history of calcium phosphate kidney stones, Topamax can slightly increase risk of recurrent kidney stone. For women of child-bearing age, call to discuss risks if you are planning on becoming . Follow-up after EMG nerve conduction studies and also in 3 months to focus on headache. farzana Not available 08/02/2024 10:08:36 09/10/2024 09/10/2024 IMPRESSION: Episodic numbness of hands and feet with dropping things and trouble walking for the respective symptoms; Daily headaches fluctuating with OTC pain reliever ~5 times a day Stuttering, poor memory, daytime tiredness. Past history includes depression, anxiety, panic attacks, nightmares, history of seizure, per patient, on gabapentin, sleep apnea off CPAP because of poor mask fit. September 08, 2024 EMG & NCS: Mild left and possibly mild right sensory median neuropathy at the wrist. Left lower extremity studies normal. H eadache unresponsive to topiramate 25 mg twice daily; tingling distal extremities continues. >>>>>>>>>>>>Javon r 2023 For headache: We agree she will restart the topiramate and we will continue titration up to 50 mg twice daily. For upper extremity tingling: Carpal tunnel syndrome may be playing a role despite the very mild nature of the electrodiagnostic diagnosis (which thus could be asymptomatic). She accepts a referral to Occupational Therapy to fit the appropriate splints as detailed in the plan. For tingling in general, lab work is sent as detailed below. >>>>>>>>>>>> August 02, 2024 Medications per patient: Gabapentin, fluoxetine, buspirone, prazosin, ambien She would like migraine preventative. I suggest topiramate and discussed possible side effects and we decide on a cautious titration as detailed below. She takes 15-20 Excedrin Migraine per day, on average. Acetaminophen per tablet = 250 mg. Even 15 tablets would put her at 3.75 g/day verging on toxic 4 g/day. I forgot to focus on this issue but I will put it in my plan. At this point I defer to primary care for [id number] discussion of potential acetaminophen toxicity. History and exam raise concern for widespread neuropathy, with exam suggestive of focal upper and lower extremity neuropathy, with polyneuropathy possible as well. This is unusual in a young woman. I offer electrodiagnostic studies, described them and she accepts. Pain and lack of sleep both may worsen memory. I believe the best way to treat her memory symptoms >>>>>>>>>>>> PLAN Andrés Ramos September 10, 2024 Laboratory assays: B12 studies, vitamin B6, thyroid studies, HbA1c, Sjogren's antibodies, Lyme titer occupational therapy appointment to arrange and fit: Carpal tunnel splints, bilateral, both soft splints for the day and hard splints at night, with Please start with a right-sided carpal tunnel syndrome splint, wearing in the evening before bed. When you are comfortable with it, where it was asleep to prevent numbness/tingling at waking. ALSO, wear soft splints during the day during activities when you have noticed that the hand gets numb or tingly. When you are comfortable wearing the right sided splint, try wearing the left-sided splint also. Topiramate INCREASE for migraine prevention: Topamax: (topiramate, generic name) 50-mg tablet one half tablet twice daily one week one half tablet morning., one tablet nightly, one week one tablet twice daily afterwards Topamax very rarely causes rash or acute eye pain. If this happens, stop the medicine and call me. Topamax also may occasionally causes side effects of tingling of fingers, toes or tongue, or fatigue. Occasionally, at higher doses, it can also cause word finding problems or mental slowing. Occasionally Topamax may affect mood-for the good or for the bad. If the side effects are mild, wait a few days and see if they go away. It side effects do not go away, or are not mild, reduced dose to the previous dose where there were no side effects. If the only side effect you have is tiredness, and this starts when you start the morning dose, switch the whole dosage to the evening only. If you are on estrogen containing medication, it could reduce blood concentration of estrogen and therefore the effectiveness of the medication. If you stay on this medication long-term, please be aware that there is a small predisposition to reduce the amount that you perspire. Therefore, in the hot sun, if you do not pay attention, you could get overheated. Also, if you stay on this medication long-term, there is a predisposition to reduce appetite and cause weight loss. Weight loss is rarely more than 10% and rarely causes problems. Unusually, there can also be nausea involved with this reduced appetite. If you have history of calcium phosphate kidney stones, Topamax can slightly increase risk of recurrent kidney stone. For women of child-bearing age, call to discuss risks if you are planning on becoming . PLEASE CONTINUE WITH ( discussed): Please reduce acetaminophen at least to at or below 12 tablets/day (3 g/day) to reduce the possibility of toxicity to liver, which can be fatal. Follow-up 11/01/24 [email or web address] Not available 09/10/2024 17:50:11 04/26/2025 04/26/2025 IMPRESSION: Episodic numbness of hands and feet with dropping things and trouble walking for the respective symptoms; Daily headaches fluctuating with OTC pain reliever ~5 times a day Stuttering, poor memory, daytime tiredness. Past history includes depression, anxiety, panic attacks, nightmares, history of seizure, per patient, on gabapentin, sleep apnea off CPAP because of poor mask fit. September 08, 2024 EMG & NCS: Mild left and possibly mild right sensory median neuropathy at the wrist. Left lower extremity studies normal. H eadache unresponsive to topiramate 25 mg twice daily; tingling distal extremities continues. --April 26, 2025 t opiramate 50 mg twice daily: No side effects, no help for headache; occupational therapist molded splints: No help at night for hand tingling. >>>>>>>>>>>>April 26, 2025 She forgot about the blood work that I had ordered for polyneuropathy. They even asked her if they wanted her to do it at [facility] at a recent blood draw for primary care and she declined. I again explained the purpose of the blood work. She understands and we agreed that I will resend the blood work. I offered carpal tunnel steroid injection into her left hand and she accepted. We will make appointment for this. Sometimes topiramate works at a higher dose; we agreed to an increase. >>>>>>>>>>>>Javon 2023 For headache: We agree she will restart the topiramate and we will continue titration up to 50 mg twice daily. For upper extremity tingling: Carpal tunnel syndrome may be playing a role despite the very mild nature of the electrodiagnostic diagnosis (which thus could be asymptomatic). She accepts a referral to Occupational Therapy to fit the appropriate splints as detailed in the plan. For tingling in general, lab work is sent as detailed below. >>>>>>>>>>>> August 02, 2024 Medications per patient: Gabapentin, fluoxetine, buspirone, prazosin, ambien She would like migraine preventative. I suggest topiramate and discussed possible side effects and we decide on a cautious titration as detailed below. She takes 15-20 Excedrin Migraine per day, on average. Acetaminophen per tablet = 250 mg. Even 15 tablets would put her at 3.75 g/day verging on toxic 4 g/day. I forgot to focus on this issue but I will put it in my plan. At this point I defer to primary care for [id number] discussion of potential acetaminophen toxicity. History and exam raise concern for widespread neuropathy, with exam suggestive of focal upper and lower extremity neuropathy, with polyneuropathy possible as well. This is unusual in a young woman. I offer electrodiagnostic studies, described them and she accepts. Pain and lack of sleep both may worsen memory. I believe the best way to treat her memory symptoms >>>>>>>>>>>> PLAN Andrés Ramos April 26, 2025 Laboratory assays: B12 studies, vitamin B6, thyroid studies, HbA1c, Sjogren's antibodies, Lyme titer occupational therapy appointment to arrange and fit: Carpal tunnel splints, bilateral, both soft splints for the day and hard splints at night, with Please start with a right-sided carpal tunnel syndrome splint, wearing in the evening before bed. When you are comfortable with it, where it was asleep to prevent numbness/tingling at waking. ALSO, wear soft splints during the day during activities when you have noticed that the hand gets numb or tingly. When you are comfortable wearing the right sided splint, try wearing the left-sided splint also. Topiramate INCREASE for migraine prevention: Topamax: (topiramate, generic name) 50-mg tablet 1 tab -> 1.5 tab twice a day. Topamax very rarely causes rash or acute eye pain. If this happens, stop the medicine and call me. Topamax also may occasionally causes side effects of tingling of fingers, toes or tongue, or fatigue. Occasionally, at higher doses, it can also cause word finding problems or mental slowing. Occasionally Topamax may affect mood-for the good or for the bad. If the side effects are mild, wait a few days and see if they go away. It side effects do not go away, or are not mild, reduced dose to the previous dose where there were no side effects. If the only side effect you have is tiredness, and this starts when you start the morning dose, switch the whole dosage to the evening only. If you are on estrogen containing medication, it could reduce blood concentration of estrogen and therefore the effectiveness of the medication. If you stay on this medication long-term, please be aware that there is a small predisposition to reduce the amount that you perspire. Therefore, in the hot sun, if you do not pay attention, you could get overheated. Also, if you stay on this medication long-term, there is a predisposition to reduce appetite and cause weight loss. Weight loss is rarely more than 10% and rarely causes problems. Unusually, there can also be nausea involved with this reduced appetite. If you have history of calcium phosphate kidney stones, Topamax can slightly increase risk of recurrent kidney stone. For women of child-bearing age, call to discuss risks if you are planning on becoming . PLEASE CONTINUE WITH ( discussed): Please reduce acetaminophen at least to at or below 12 tablets/day (3 g/day) to reduce the possibility of toxicity to liver, which can be fatal. Follow-up for left wrist carpal tunnel steroid injection Follow up 3 months [email or web address] Not available 04/26/2025 12:36:04 Plan of Treatment Reminders Order Date Submit Date Provider Last Modified By Organization Details Last Modified Time Details Appointments FOLLOW UP EXT 2024 02:30P M Luis Alfredo Middleton MD PhD Not available Not available Not available Lab None raquel cazares Referral occupat ional therapi st, hand referra l - occupat ional therapy appoint ment to arrange and fit: Carpal tunnel splints , bilater al, both soft splints for the day and hard splints at night, for Median neuropa thy at wrist on nerve conduct ion studies and tinglin g hands during day and waking at night 2023 024 [email or web address] [facility], [address], [address], [place], [address], 11/18/2024 13:54:29 Procedures None recorde d. Surgeries None recorde d. Imaging None recorde d. Medication Orders topiram ate 50 mg tablet 2024 025 [facility] - [place], [place] - [id number], [address], [place], [address], 07/12/2025 12:56:33 topiram ate 50 mg tablet 2023 024 JESSIE Not available 09/10/2024 12:50:37 topiram ate 25 mg tablet 2023 024 JESSIE Not available 08/02/2024 10:09:10 Patient TargetsNo targets recorded. Patient Instructions Encounter Date Encounter Id Patient Instructions Last Modified By Organization Details Last Modified Time 08/02/2024 [id number] Discussion acros s issues of diagnoses and management and same day associated chart review and management greater than 50% greater than 60 minutes [email or web address] Not available 08/02/2024 10:12:02 09/10/2024 [id number] Discussion acros s issues of diagnoses and management and same day associated chart review and management greater than 50% greater than 60 minutes [email or web address] Not available 09/10/2024 12:19:11 04/26/2025 [id number] Discussion acros s issues of diagnoses and management and same day associated chart review and management greater than 50% greater than 40 minutes [email or web address] Not available 04/26/2025 12:36:16 Reason for Referral occupational therapy appoint ment to arrange and fit: Carpal tunnel splints, bilateral, both soft splints for the day and hard splints at night, for Median neuropathy at wrist on nerve conduction studies and tingling hands during day and waking at night Referring Physician: Luis Alfredo Middleton, Neurology, Encounter Date: 09/10/2024 Procedures Surgical History Date Name Laterality Status Provider Name and Address Organization Details Recorded Time 04/26/2025 DATA REVIEW completed Luis Alfredo Middleton MD [address] [place] [address] [place], [phone], [facility] 04/26/2025 12:09:37 09/10/2024 DATA REVIEW completed Luis Alfredo Middleton MD [address] [place] [address] [place], [phone], [facility] 09/10/2024 12:22:37 09/08/2024 EMG & NCS completed Luis Alfredo Middleton MD [address] [place] [address] [place], [id number], [facility] 09/08/2024 18:53:11 Imaging Results None recorded. Procedure Notes None recorded. Medical Equipment None Reported. Allergies No known drug allergies Medications Name Sig Start Date Stop Date Status Note LastModified by Organization Details LastModified Time vitamin b1 100 mg tabs active Not Available Not Available Not Available fluoxetine 40 mg capsule TAKE 1 CAPSULE BY MOUTH ONCE DAILY active Not Available Not Available No t Available cetirizine 10 mg tablet TAKE 1 TABLET BY MOUTH DAILY active Not Available Not Available Not Available prazosin 1 mg capsule TAKE 3 CAPSULES BY MOUTH DAILY active Not Available Not Available Not Available senna 8.6 mg tablet TAKE 2 TABLETS BY MOUTH TWO TIMES A DAY active Not Available Not Available Not Available sucralfate 1 gram tablet TAKE 1 TABLET BY MOUTH 3 TIMES A DAY BEFORE MEALS AND BEDTIME active Not Available Not Available No t Available sumatriptan 25 mg tablet TAKE 1 TABLET BY MOUTH DAILY NEEDED FOR MIGRAINE. MAY REPEAT DOSE IN 2 HOURS NEEDED active Not Available Not Available No t Available gabapentin 400 mg capsule TAKE 1 CAPSULE BY MOUTH 3 (THREE) TIMES A DAY active Not Available Not Available Not Available sumatriptan 50 mg tablet TAKE 1 TABLET BY MOUTH EVERY 2 HOURS BETWEEN DOSES NEEDED active Not Available Not Available No t Available topiramate 25 mg tablet one half tablet nightly one weekone half tablet twice daily one week one half tablet morning., one tablet nightly, one weekone tablet twice daily afterward active Not Available Not Available No t Available doxycycline monohydrate 100 mg tablet TAKE 1 TABLET BY MOUTH EVERY 12 HOURS FOR 5 DAYS active Not Available Not Available N ot Available acetaminophe n 500 mg tablet TAKE 2 TABLETS BY MOUTH EVERY 8 HOURS FOR 14 DAYS NEEDED FOR PAIN. DO NOT EXCEED 3000MG PER DAY active Not Available Not Available No t Available butalbital-a cetaminophen -caffeine 50 mg-325 mg-40 mg tablet active Not Available Not Available No t Available prazosin 5 mg capsule TAKE 1 CAPSULE BY MOUTH ONCE DAILY active Not Available Not Available No t Available hydrocortiso ne 1 % topical cream APPLY EXTERNALLY TWICE DAILY FOR 14 DAYS active Not Available Not Available Not Available pantoprazole 40 mg tablet,delay ed release TAKE 1 TABLET BY MOUTH ONCE DAILY active Not Available Not Available No t Available buspirone 10 mg tablet TAKE 1 TABLET BY MOUTH 3 (THREE) TIMES A DAY active Not Available Not Available Not Available fluoxetine 10 mg capsule TAKE 1 CAPSULE BY MOUTH ONCE DAILY WITH 40mg total daily dose 50mg active Not Available Not Available No t Available docusate sodium 100 mg capsule TAKE 1 CAPSULE BY MOUTH 2 TIMES A DAY NEEDED FOR CONSTIPATIO N active Not Available Not Available No t Available buspirone 7.5 mg tablet TAKE 1 TABLET BY MOUTH 3 (THREE) TIMES A DAY active Not Available Not Available Not Available folic acid 1 mg tablet active Not Available Not Available No t Available zolpidem 5 mg tablet TAKE 1 TABLET BY MOUTH AT BEDTIME active Not Available Not Available No t Available polyethylene glycol 3350 17 gram/dose oral powder DISSOLVE 1 SCOOP (17GRAMS) IN 4 TO 8 OUNCES OF BEVERAGE AND TAKE ONCE DAILY NEEDED FOR CONSTIPATIO N active Not Available Not Available No t Available zolpidem 10 mg tablet TAKE 1 TABLET BY MOUTH AT BEDTIME active Not Available Not Available No t Available ondansetron 4 mg disintegrati ng tablet DISSOLVE 1 TABLET ON THE TONGUE THREE TIMES DAILY NEEDED FOR NAUSEA OR VOMITING active Not Available Not Available No t Available fluoxetine 20 mg capsule TAKE 2 CAPSULES BY MOUTH DAILY active Not Available Not Available Not Available prazosin 2 mg capsule TAKE THREE CAPSULES BY MOUTH AT BEDTIME active Not Available Not Available No t Available metocloprami de 10 mg tablet TAKE 1 TABLET BY MOUTH THREE TIMES DAILY FOR 7 DAYS NEEDED FOR NAUSEA OR VOMITING active Not Available Not Available Not Available amoxicillin 875 mg-potassium clavulanate 125 mg tablet TAKE 1 TABLET BY MOUTH EVERY 12 HOURS FOR 10 DAYS active Not Available Not Available Not Available oxycodone 5 mg tablet TAKE 1 TABLET BY MOUTH 12 HOURS NEEDED active Not Available Not Available No t Available hydroxyzine pamoate 25 mg capsule TAKE 1 TO 2 CAPSULES BY MOUTH 3 (THREE) TIMES A DAY NEEDED active Not Available Not Available No t Available topiramate 50 mg tablet TAKE 1 & 1/2 TABLETS BY MOUTH two (2) times a day active Not Available Not Available Not Available Suboxone 8 mg-2 mg sublingual film TAKE 1 film UNDER THE TONGUE 3 (THREE) TIMES A DAY active Not Available Not Available Not Available naloxone 4 mg/actuation nasal spray SPRAY ONCE INTO either NOSTRIL ONCE DAILY NEEDED active Not Available Not Available No t Available Vitals Date Recorded Body height Body mass index (BMI) Body weight Respiratory rate Provider Name and Address Organization Details Last Updated DateTime 08/02/2024 157.48 cm 27.4 kg/m2 26171.86 g 12 /min [facility] 08/02/2024 09:09:22 Social History Question Answer Notes LastModified by Organizat ion Details LastModified Time Tobacco Smoking Status Current Every Day Smoker [facility] 08/02/2024 09:19:41 What Is Your Level Of Caffeine Consumption? Heavy 7 Information not available 08/02/2024 What Is The Highest Grade Or Level Of School You Have Completed Or The Highest Degree You Have Received? [id number] Information not available 08/02/2024 Which Of Your Hands Is Dominant? Right Information not available 08/02/2024 What Is Your Relationship Status? Single Information not available 08/02/2024 How Much Tobacco Do You Smoke? 0.25 PPD Information not available 08/02/2024 Sex: Unknown Functional Status Question Answer Note LastModified by Organization D etails LastModified Time What is your level of alcohol consumption? Moderate 2 Information not available 08/02/2024 Mental Status None recorded. Family History Relationship Description Onset Age of this Age Resolved Age Notes LastModified by Organization Details LastModified Time Mother Headache [email or web address] Not avail able 08/02/2024 09:18:39 Mother Neuropathy [email or web address] Not gorge ilable 08/02/2024 09:18:57 Father Neuropathy [place] Not gorge ilable 08/02/2024 09:18:57 Medical History Condition Response Depression Y COPD or emphysema Y Alcoholism Y Headaches Y Gynecological HistoryNo gynecological history recorded. Obstetrics History GPAL:G 0 P 0 0 0 0 Past Encounters Encounter ID Performer Location Encounter Start Date Encounter Closed Date Diagnosis/Indication Diagnosis SNOMED-CT Code Diagnosis ICD10 Code Diagnosis IMO Codes Diagnosis Note [id number] Luis Alfredo Middleton MD [facility] [address] [place] [address] K[place] KOBY [id number] 08/02/2024 08:52:00 08/02/2024 12:05:37 Migraine without aura [id number] G43.009 Idiopathic peripheral neuropathy [id number] G60.3 [id number] Luis Alfredo Middleton MD [facility] [address] [place] [address] KAYLEY SOLOKOBY [id number] 09/08/2024 17:15:30 09/10/2024 17:32:53 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 Carpal bernice pablo syndrome of right wrist [id number] 97783 G56.01 Carpal bernice pablo syndrome of left wrist [id number] 96061 G56.02 Cervical radiculopathy [id number] M54.12 Lumbosacra l radiculopathy [id number] M54.16 [id number] Luis Alfredo Middleton MD [facility] [address] [place] [address] [place] [id number] 09/10/2024 11:55:31 09/10/2024 17:00:53 Migraine without aura [id number] G43.009 Idiopathic peripheral neuropathy [id number] G60.3 Bilateral carpal tunnel syndrome [id number] G56.03 [id number] Luis Alfredo Middleton MD [facility] [address] [place] [address] KAYLEY SOLO KOBY [id number] 04/26/2025 11:31:40 04/27/2025 13:31:30 Migraine without aura [id number] G43.009 Idiopathic peripheral neuropathy [id number] G60.3 Bilateral carpal tunnel syndrome [id number] G56.03 Health Concerns Section Related Observation LastModified by Organization Detai ls LastModified Time None Recorded Concern Status LastModified by Organization Details LastModified Time None Recorded Advance Directives Directive None Recorded Payers Insurance Date Sequence Insurance Name Policy Number Policy Ye Covered Member ID Ye Member ID Guarantor Name 05/15/[address] [place] [address] [id number] Andrés Ramos [id number] Andrés Ramos Notes Date Note Type Note Provider Name and Address Organization Details Recorded Time 08/02/2024 text/html Andrés Ramos presents for initial neurology consultation for assessment and management of Episodic numbness of hands and feet with dropping things and trouble walking for the respective symptoms; Daily headaches fluctuating with OTC pain reliever ~5 times a day Stuttering Past history includes depression, anxiety, panic attacks, nightmares, history of seizure, per patient, on gabapentin, sleep apnea off CPAP because of poor mask fit. She is unaccompanied.>>>>>>> >>>>>August 02, 2024 presenting symptomotology:She has had symmetric numbness and/or tingling episodically in her hands. With the numbness, she keeps dropping things. Her hands just fall asleep. This happens episodically all day long. This been going on for ~5 months.She also has episodic going to sleep tingling and numbness of her feet episodically every day. This happens if she is sitting or lying down for too long. She cannot walk when symptoms are going on. When symptoms emerged with extended lying or sitting, she changes her posture and waits about 5 minutes until they resolve. Then she can walk.Additionally, she has had headaches daily, through much of the day, for a while. Headaches are mostly on the left side and get so bad that she cannot stand any bright light or loud sound. She gets nausea and emesis almost every day for the headaches. The only zhde-wyd-pkoqbfu analgesic that has helped is Excedrin Migraine. She takes three or 4 pills five times a day.She sometimes has a bad memory, so bad that she can hardly tell who she is talking to or what she is talking about. Sometimes she stuttersShe has standing diagnosis of sleep apnea and has tried CPAP but stopped a while ago because she could not find a mask that fit well. At the time she stopped using CPAP as she already had frequent daily intense migraines. She remembers no change with stopping CPAP. Luis Alfredo Middleton MD [address] [place] [address] [place], [phone], [facility] 08/02/2024 10:12:21 09/10/2024 text/html Neurology follow-up of Episodic numbness of hands and feet with dropping things and trouble walking for the respective symptoms; Daily headaches fluctuating with OTC pain reliever ~5 times a day Stuttering Past history includes depression, anxiety, panic attacks, nightmares, history of seizure, per patient, on gabapentin, sleep apnea off CPAP because of poor mask fit. She is unaccompanied. >>>>>>>>>>>>September 10, 2024Since August 02, 2024 Inititial neurology consultation, she reports no change in her presenting symptomatology. She started and titrated the topiramate up to 25 mg twice a day. Her headache felt like it worsened so she stopped it. I asked if this could have just been the up-and-down fluctuation of her daily headache and she says that is possible as well. She had no side effects to the topiramate. >>>>>>>>>>>>August 02, 2024 presenting symptomatology:She has had symmetric numbness and/or tingling episodically in her hands. With the numbness, she keeps dropping things. Her hands just fall asleep. This happens episodically all day long. This been going on for ~5 months.She also has episodic going to sleep tingling and numbness of her feet episodically every day. This happens if she is sitting or lying down for too long. She cannot walk when symptoms are going on. When symptoms emerged with extended lying or sitting, she changes her posture and waits about 5 minutes until they resolve. Then she can walk.Additionally, she has had headaches daily, through much of the day, for a while. Headaches are mostly on the left side and get so bad that she cannot stand any bright light or loud sound. She gets nausea and emesis almost every day for the headaches. The only ukts-bar-ngcnmwt analgesic that has helped is Excedrin Migraine. She takes three or 4 pills five times a day.She sometimes has a bad memory, so bad that she can hardly tell who she is talking to or what she is talking about. Sometimes she stuttersShe has standing diagnosis of sleep apnea and has tried CPAP but stopped a while ago because she could not find a mask that fit well. At the time she stopped using CPAP as she already had frequent daily intense migraines. She remembers no change with stopping CPAP. Luis Alfredo Middleton MD [address] [place] [address] [place], [phone], [facility] 09/10/2024 17:51:15 04/26/2025 text/html Neurology follow-up of Episodic numbness of hands and feet with dropping things and trouble walking for the respective symptoms; Daily headaches fluctuating with OTC pain reliever ~5 times a day Stuttering Past history includes depression, anxiety, panic attacks, nightmares, history of seizure, per patient, on gabapentin, sleep apnea off CPAP because of poor mask fit. She is unaccompanied. >>>>>>>>>>>>April 26, 2025Since September 10, 2024 Neurology follow-up encounter, for her hand tingling, which is worse on the left (although she is right-handed), she had occupational therapist consultation where they molded hard splints to complement her soft splints. She wore the hard splints overnight and it did not help. She has stopped wearing them. 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 She lost her soft splints at some point during the hospitalization and has worn no splints since then.Her hand tingling has continued unchanged.Her foot tingling has also continued unchanged.She restarted the topiramate and titrated to 50 mg twice a day. She had no side effects of worsened headache this time. She has had no side effects more generally. However, it has not helped her headache. >>>>>>>>>>>>September 10, 2024Since August 02, 2024 Inititial neurology consultation, she reports no change in her presenting symptomatology. She started and titrated the topiramate up to 25 mg twice a day. Her headache felt like it worsened so she stopped it. I asked if this could have just been the up-and-down fluctuation of her daily headache and she says that is possible as well. She had no side effects to the topiramate. >>>>>>>>>>>>August 02, 2024 presenting symptomatology:She has had symmetric numbness and/or tingling episodically in her hands. With the numbness, she keeps dropping things. Her hands just fall asleep. This happens episodically all day long. This been going on for ~5 months.She also has episodic going to sleep tingling and numbness of her feet episodically every day. This happens if she is sitting or lying down for too long. She cannot walk when symptoms are going on. When symptoms emerged with extended lying or sitting, she changes her posture and waits about 5 minutes until they resolve. Then she can walk.Additionally, she has had headaches daily, through much of the day, for a while. Headaches are mostly on the left side and get so bad that she cannot stand any bright light or loud sound. She gets nausea and emesis almost every day for the headaches. The only iycp-jdb-gmumnso analgesic that has helped is Excedrin Migraine. She takes three or 4 pills five times a day.She sometimes has a bad memory, so bad that she can hardly tell who she is talking to or what she is talking about. Sometimes she stuttersShe has standing diagnosis of sleep apnea and has tried CPAP but stopped a while ago because she could not find a mask that fit well. At the time she stopped using CPAP as she already had frequent daily intense migraines. She remembers no change with stopping CPAP. Luis Alfredo Middleton MD [address] [place] [address] [place], [phone], [facility] 04/26/2025 12:36:36 OBGyn Episode No OBEpisode recorded.
== END 2025-07-20 20:55 | disposition home or self-care (01) ==
PROVIDERS: Student in an Organized Health Care Education/Training Program; Emergency Provider Emergency Medicine; PCP Nurse Practitioner Family
DX: R10.12 Left upper quadrant pain (principal); R10.11 Right upper quadrant pain; R06.02 Shortness of breath; R07.89 Other chest pain; Z79.899 Other long term (current) drug therapy; Z86.718 Personal history of other venous thrombosis and embolism
CPT/HCPCS: 36415; 71045; 74176; 80053; 81001; 83690; 83735; 84484; 85025; 85379; 93005; 96361; 96374; 96375; 99284; J1171; J1885

== ENCOUNTER → 2025-07-20 17:29 | Outpatient (BNV) | payer OTHER, SELFPAY | PROVIDERS: Emergency Provider Emergency Medicine; PCP Nurse Practitioner Family; Visit Provider Student in an Organized Health Care Education/Training Program | DX: K76.0 Fatty (change of) liver, not elsewhere classified (principal); R10.13 Epigastric pain | CPT/HCPCS: 71045; 74176 ==

== ENCOUNTER → 2025-07-20 19:57 | Outpatient (BNV) | payer OTHER, SELFPAY | PROVIDERS: Emergency Provider Emergency Medicine; PCP Nurse Practitioner Family; Visit Provider Internal Medicine | DX: R10.13 Epigastric pain (principal) | CPT/HCPCS: 93010 ==